=== PATIENT | male | born 1960 | race Caucasian/White ===

== ENCOUNTER → 2018-05-15 18:29 | Outpatient (CLI) | payer BC, SELFPAY | PROVIDERS: Family Provider Family Medicine; PCP Family Medicine; Referring Provider Podiatrist; Visit Provider Podiatrist | DX: L03.031 Cellulitis of right toe (principal) | CPT/HCPCS: 87070; 87077; 87186; 87205 ==

== ENCOUNTER → 2019-09-07 16:00 | Outpatient (CLI) | payer BC, SELFPAY ==
[2019-09-07 18:06] LABS: RBC /Synovial Fluid 0.214 10^6/uL (0); Synovial Fld Mononuclear WBC % 60.6 %; Synovial Fld Polynuclear WBC # 0.441 10^3/uL; Synovial Fld Polynuclear WBC % 39.4 %
[2019-09-07 19:18] LABS: AUTO B FLUID DILUENT BKGD CT WBC <0.1 RBC <0.01 (W<.1,R<.01); Appearance /Synovial Fluid Turbid (CLEAR); Color / Synovial Fluid Red (Pale Yellow); Lymph 29 %; Monocyte /Synovial Fluid 16 %; Other Cell /Synovial Fluid 31 %
[2019-09-07 19:19] LABS: Body Fluid QC Type(s) BF2Q; Neutrophil 24 % (0-25)
[2019-09-11 09:46] LABS: Pathologist Comment Reviewed
== END ==
PROVIDERS: PCP Family Medicine; Referring Provider Physician Assistant Surgical; Visit Provider Physician Assistant Surgical
DX: M70.22 Olecranon bursitis, left elbow (principal); Y93.9 Activity, unspecified
CPT/HCPCS: 87015; 87070; 87075; 87101; 87116; 87205; 87206; 89050; 89051

== ENCOUNTER 2020-04-08 10:20 | Inpatient (IN) | payer BC, SELFPAY ==
[2020-04-08] VITALS (22 sets, daily range): BP systolic 130–166; BP diastolic 47–78; PULSE 8–103; RESP 13–26; TEMP 36.7–37.2; O2SAT 70–93; BMI 29.6; BMI 29.5
--- NOTE | 2020-04-08 10:35 | RAD_ITS ---
STUDY: X-RAY CHEST REASON FOR EXAM: Male, 60 years old. SHORTNESS OF BREATH X 3 DAYS, COUGH, HEADACHE TECHNIQUE: Single AP portable view of the chest. COMPARISON: Comparison is made with prior study dated 11/02/2014. FINDINGS: EKG electrode are seen. Hyperinflation. There is no demonstrated pleural abnormality. Normal size heart. Normal mediastinum and joellen. Normal visualized pulmonary arteries. Normal visualized aortic arch and descending thoracic aorta. Normal visualized thoracic spine. Normal visualized ribs, clavicles, and shoulders. There is no demonstrated abnormality of the visualized soft tissue structures of the upper abdomen. RAD/Chest 1 View (Portable) IMPRESSION: Hyperinflation. Electronically Signed: Brendan Gunn, at 12:12 EDT , Service support ,
--- NOTE | 2020-04-08 10:35 | EKG12_ITS ---
Test Reason : SOB Blood Pressure : / mmHG Vent. Rate : 083 BPM Atrial Rate : 083 BPM P-R Int : 136 ms QRS Dur : 130 ms QT Int : 398 ms P-R-T Axes : 063 214 046 degrees QTc Int : 467 ms Sinus rhythm with Premature supraventricular complexes Right bundle branch block Abnormal ECG Confirmed by DELORES HUTCHISON, TRE ([id number]), assignment editor NASIM BLANKENSHIP ([id number]) on 04/15/2020 8:58:26 AM Referred By: JERRY Confirmed By:JAS ESTRELLA MD
--- NOTE | 2020-04-08 10:51 | ED.DCSUM_ITS ---
History of Present Illness Chief Complaint: Shortness of Breath Informant: Patient, Family Narrative: Patient presents the emergency department with shortness of breath and low oxygen levels. Patient states that about 3 to 4 days ago he developed nasal congestion that moved to his chest. He states his chest feels tight. He notes a chronic cough that does not seem worse but he does note some yellow sputum production. No fevers or myalgias. He does not feel chilled. No diarrhea or rashes. He has smoked a pack a day for 40 years. He has a diagnosis of sleep apnea and wears BiPAP with oxygen. He states he feels may be some I told him he had COPD at one point but he is not currently treated for that. Noted to have a pulse ox in the 70s yesterday was advised to come to emergency. - Past Medical History (1) BPH (benign prostatic hypertrophy) Status: Chronic (2) Depression Status: Chronic (3) Hyperlipemia Status: Chronic (4) Hypertension Status: Chronic Past Medical History - Allergies and Home Meds Allergies/Adverse Reactions: Allergies No Known Allergies Allergy (Verified 01/07/14 02:11) Primary Care Physician: Hector Vega MD [Primary Care Provider] - Prior records reviewed: Yes Surgical History: noncontributory, herniorrhaphy, - - History foot surgery Lives: Spouse/ Significant Other Smoking Status: Current every day smoker Alcohol: None Review of Systems General: Reports: Malaise. Denies: Chills, Fever, Sweats Eyes: Denies: Visual changes - bilaterally, Diplopia ENT: Reports: Rhinorrhea. Denies: Sore throat Cardiovascular: Denies: Chest pain, Palpitations Respiratory: Reports: Dyspnea, Cough, Dyspnea on exertion Gastrointestinal: Denies: Abdominal pain, Nausea, Vomiting, Diarrhea, Melena, Hematochezia Genitourinary: Denies: Dysuria, Hematuria, Frequency Musculoskeletal: Denies: Back pain, Extremity Pain Skin: Denies: Rash, Wounds Neurological: Denies: Headache, Weakness, Numbness Physical Exam Vital Signs/Narrative: Vital Signs Temp Pulse Resp BP Pulse Ox 04/08/20 10:42 86 13 144/60 H 92 04/08/20 10:40 93 04/08/20 10:26 98.9 F 86 17 144/60 H 70 Inital Vital Signs reviewed: Yes General: Well nourished, Well developed, No Acute Distress Head: Normocephalic, Atraumatic Eyes: Perrl, EOMI ENT: Moist mucous membranes, No rhinorrhea Neck: Supple, Nontender Cardiovascular: Regular rate, Regular rhythm, No murmurs Respiratory: Chest nontender, Rhonchi, Wheezing, Decreased Air Movement Abdomen: Soft, Nontender, Nondistended, Normal bowel sounds Back: Nontender, Normal Inspection Extremities: Nontender, No edema Skin: Normal color, No rash Neurological: Alert, Oriented x3, Cranial nerves II-XII grossly intact, Normal Strength, Normal Sensation Psychological: Normal affect, Normal Mood Diagnostic/Tx/Re-eval Laboratory Last Values WBC 13.2 K/mm3 (4.4-11.0) H 04/08/20 10:27 RBC 4.62 M/mm3 (4.6-6.2) 04/08/20 10:27 Hgb 14.5 g/dL (13.0-16.5) 04/08/20 10:27 Hct 46.3 % (40-54) 04/08/20 10:27 MCV 100.2 fL (80-94) H 04/08/20 10:27 MCH 31.4 pg (27.0-32.0) 04/08/20 10:27 MCHC 31.3 g/dL (32-36) L 04/08/20 10:27 RDW Std Deviation 51.7 fl (35.1-43.9) H 04/08/20 10:27 RDW Coeff of Renee 14.3 % (11.6-14.6) 04/08/20 10:27 Plt Count 178 K/mm3 (150-450) 04/08/20 10:27 MPV 10.7 fl (6.2-12.0) 04/08/20 10:27 Immature Gran % (Auto) 1.600 % (0.0-0.9) H 04/08/20 10:27 Neut % (Auto) 75.5 % (47-70) H 04/08/20 10:27 Lymph % (Auto) 12.1 % (19-41) L 04/08/20 10:27 [place] % (Auto) 9.9 % (0-10) 04/08/20 10:27 Eos % (Auto) 0.4 % (0-5) 04/08/20 10:27 Baso % (Auto) 0.5 % (0-1) 04/08/20 10:27 Absolute Neuts (auto) 10.0 X10^3/uL (2.0-7.7) H 04/08/20 10:27 Absolute Lymphs (auto) 1.60 X10^3/uL (0.83-4.51) 04/08/20 10:27 Nucleated RBC % 0 % (0-5) 04/08/20 10:27 PT 11.9 SECONDS (11.7-14.9) 04/08/20 10:27 INR 0.9 04/08/20 10:27 APTT 24.1 Seconds (24.1-36.2) 04/08/20 10:27 Sodium 138 mmol/L (136-145) 04/08/20 10:27 Potassium 3.7 mmol/L (3.5-5.1) 04/08/20 10:27 Chloride 103 mmol/L (98-107) 04/08/20 10:27 Carbon Dioxide 33.0 mmol/L (21.0-32.0) H 04/08/20 10:27 Anion Gap 2 (5-15) L 04/08/20 10:27 BUN 10 mg/dL (7-18) 04/08/20 10:27 Creatinine 0.66 mg/dL (0.70-1.30) L 04/08/20 10:27 Estim Creat Clear Calc 120.51 ml/min 04/08/20 10:27 Est GFR (MDRD) Af Amer 160 mL/min (>60) 04/08/20 10:27 Est GFR (MDRD) Non-Af 132 mL/min (>60) 04/08/20 10:27 BUN/Creatinine Ratio 15.3 RATIO (10-20) 04/08/20 10:27 Glucose 118 mg/dL (74-106) H 04/08/20 10:27 Lactic Acid 1.2 mmol/L (0.4-1.9) 04/08/20 10:27 Calcium 9.1 mg/dL (8.5-10.1) 04/08/20 10:27 Total Bilirubin 0.50 mg/dL (0.20-1.00) 04/08/20 10:27 AST 15 U/L (15-37) 04/08/20 10:27 ALT 17 U/L (16-61) 04/08/20 10:27 Alkaline Phosphatase 77 U/L (45-117) 04/08/20 10:27 Troponin I < 0.015 ng/mL (<0.045) 04/08/20 10:27 Total Protein 7.3 g/dL (6.4-8.2) 04/08/20 10:27 Albumin 3.6 g/dL (3.2-5.0) 04/08/20 10:27 Globulin 3.7 g/dL (2.2-4.2) 04/08/20 10:27 Albumin/Globulin Ratio 1.0 RATIO (0.9-2.4) 04/08/20 10:27 Urine Color Straw (Yellow) 04/08/20 11:40 Urine Clarity Clear (Clear) 04/08/20 11:40 Urine pH 7.0 (5.0 - 8.0) 04/08/20 11:40 Ur Specific [place] 1.010 (1.002-1.030) 04/08/20 11:40 Urine Protein Negative mg/dl (Negative) 04/08/20 11:40 Urine Glucose (UA) Normal mg/dl (Normal) 04/08/20 11:40 Urine Ketones 5 mg/dl (Negative) H 04/08/20 11:40 Urine Occult Blood Negative /ul (Negative) 04/08/20 11:40 Urine Nitrite Negative (Negative) 04/08/20 11:40 Urine Bilirubin Negative mg/dL (Negative) 04/08/20 11:40 Urine Urobilinogen 1 mg/dl (Normal) H 04/08/20 11:40 Ur Leukocyte Esterase Negative /ul (Negative) 04/08/20 11:40 Urine RBC 0 SEEN /hpf (0-5) 04/08/20 11:40 Urine WBC 0 SEEN /hpf (0-5) 04/08/20 11:40 Ur Squamous Epith Cells 0 SEEN /hpf (0-5) 04/08/20 11:40 Amorphous Sediment 3+ 04/08/20 11:40 Urine Bacteria 1+ /hpf (None Seen) 04/08/20 11:40 Urine Mucus 0 SEEN /hpf (<or=2+) 04/08/20 11:40 Clinical Impression(s) from Imaging Studies Chest X-Ray 04/08/20 10:35 IMPRESSION: Hyperinflation. Electronically Signed: Brendan Gunn, at 12:12 EDT , Service support , Chest CTA 04/08/20 11:39 IMPRESSION: No evidence of pulmonary embolism. 7.8 mm nodule in the peripheral lateral aspect of the left lower lobe. This was not present on prior study. Bilateral adrenal hyperplasia. Electronically Signed: Brendan Gunn, at 12:38 EDT , Service support , - Medical Decision Making She received breathing treatments and Solu-Medrol. Later in his ED course he received Rocephin and azithromycin. White count is 13,000. I do not see any infiltrate on chest x-ray or CTA. I do not see any pulmonary embolism. Patient continues to have significant wheezing and diminished breath sounds. He is requiring 5 L nasal cannula to keep his sats at 90%. Patient will require adm ission. ED Disposition - Plan for ED Patient: Disposition: Acute Care Hospital [facility] Diagnosis: Acute respiratory failure with hypoxia Referrals: Hector Vega MD [Primary Care Provider] -
[2020-04-08] MEDS: Ipratropium/Albuterol Sulfate 3 ML AMPUL.NEB INHALATION ×5 (11:00→23:01)
[2020-04-08] MEDS: Albuterol 2.5 MG/3 ML VIAL.NEB. INHALATION ×2 (11:00)
[2020-04-08] MEDS: 0.9% Normal Saline 1,000 ML 150 ML IV (11:05)
[2020-04-08] MEDS: MethylPREDNISolone 125 MG/2 ML Vial IV (11:05)
[2020-04-08 11:17] LABS: Basophil# 0.06 X10^3/uL; Basophil% 0.5 % (0-1); Eosinophil# 0.05 X10^3/uL; Eosinophils% 0.4 % (0-5); Hematocrit 46.3 % (40-54); Hemoglobin 14.5 g/dL (13.0-16.5); Lymphocyte % 12.1 % (19-41); Mean Corp Hgb Conc 31.3 g/dL (32-36); Mean Corpuscular Hgb 31.4 pg (27.0-32.0); Mean Corpuscular Volume 100.2 fL (80-94); Mean Platelet Vol. 10.7 fl (6.2-12.0); Monocyte# 1.31 X10^3/uL; Monocyte% 9.9 % (0-10); NRBC Flagged by Analyzer 0 % (0-5); Neutrophil # 9.96 X10^3/uL (2.7-7.7); Neutrophil % 75.5 % (47-70); Platelet Count 178 K/mm3 (150-450); RBC Distribution Width CV 14.3 % (11.6-14.6); RBC Distribution Width SD 51.7 fl (35.1-43.9); Red Blood Count 4.62 M/mm3 (4.6-6.2); White Blood Count 13.2 K/mm3 (4.4-11.0)
[2020-04-08 11:21] LABS: Lactic Acid 1.2 mmol/L (0.4-1.9)
[2020-04-08 11:24] LABS: AST(SGOT) 15 U/L (15-37); Alanine Aminotransfer ALT/SGPT 17 U/L (16-61); Albumin, Serum 3.6 g/dL (3.2-5.0); Alkaline Phosphatase 77 U/L (45-117); Anion Gap 2 (5-15); BUN 10 mg/dL (7-18); BUN/Creat Ratio 15.3 RATIO (10-20); Calcium,Total 9.1 mg/dL (8.5-10.1); Chloride 103 mmol/L (98-107); Creatinine, Serum 0.66 mg/dL (0.70-1.30); EST Glomerular Filtration Rate 132 mL/min (>60); Est Glom Filt Rate - Afr Amer 160 mL/min (>60); Estimated Creatinine Clearance 120.51 ml/min; Globulin 3.7 g/dL (2.2-4.2); Glucose 118 mg/dL (74-106); Potassium 3.7 mmol/L (3.5-5.1); Protein, Total 7.3 g/dL (6.4-8.2); Sodium Level 138 mmol/L (136-145)
[2020-04-08 11:29] LABS: International Normalized Ratio 0.9; Prothrombin Time (Protime)PT. 11.9 SECONDS (11.7-14.9)
[2020-04-08 11:30] LABS: Partial Thromboplast Time 24.1 Seconds (24.1-36.2)
--- NOTE | 2020-04-08 11:30 | ED.RN ---
PER FERNANDA WELLS FOR PT TO TAKE HOME MEDICATIONS OF PROZAC, AMLODIPINE, LOSARTAN, ASA.
--- NOTE | 2020-04-08 11:39 | CT_ITS ---
STUDY: CTA CHEST REASON FOR EXAM: Male, 60 years old. SOB X 3 DAYS, HX LYMPHOMA RADIATION DOSAGE (If Supplied By Facility): CTDIvol = ( 14.27 ) mGy, DLP = ( 540.00 ) mGycm TECHNIQUE: The examination was performed with the intravenous administration of IV 100mL Isovue-370. Post-processing of the angiographic images was performed, with multiplanar reformation and 3D reconstruction. Individualized dose optimization techniques were used for this CT. COMPARISON: Comparison is made with prior study dated 01/07/2014. FINDINGS: Normal enhancement of the main pulmonary artery and right and left pulmonary arteries. Normal enhancement of the bilateral peripheral pulmonary arteries. There is no demonstrated pulmonary embolism. There is atherosclerotic calcification of the aortic arch with tortuosity. There is no demonstrated aortic dissection. Normal heart and pericardium. There are visualized mediastinal lymph nodes, which are within normal size limits, and with normal morphology. Normal hilar regions. Normal visualized trachea and bronchi. The lungs are well expanded. Mild degree of emphysematous changes more prominent in the upper lobes. There is a 7.8 mm noncalcified nodule in the peripheral lateral aspect of the left lower lobe as seen on axial image #67. This was not present on prior examination. Normal pleura. Normal chest wall structures. There are degenerative changes of thoracic spine. There is evidence of bilateral adrenal hyperplasia. CT/CTA Chest W/WO Contrast IMPRESSION: No evidence of pulmonary embolism. 7.8 mm nodule in the peripheral lateral aspect of the left lower lobe. This was not present on prior study. Bilateral adrenal hyperplasia. Electronically Signed: Brendan Gunn, at 12:38 EDT , Service support ,
[2020-04-08 11:52] LABS: Mucous, Urine 0 SEEN /hpf (<or=2+); Red Blood Cells-Urine 0 SEEN /hpf (0-5); Squamous Epithelial Cells - UA 0 SEEN /hpf (0-5); White Blood Cells 0 SEEN /hpf (0-5)
[2020-04-08 11:55] LABS: Color, Urine Straw (Yellow); Glucose, Dipstick Normal (Normal); Ketone-Dipstick 5 mg/dl (Negative); Leukocyte Esterase-Dipstick Negative /ul (Negative); Nitrite-Dipstick Negative (Negative); Occult Blood-Urine Negative /ul (Negative); Protein-Dipstick Negative (Negative); Urine Bilirubin Dipstick Negative (Negative); Urine Clarity Clear (Clear); Urine Urobilinogen 1 mg/dl (Normal)
[2020-04-08 12:04] LABS: Amorphous Sediment 3+; Bacteria 1+ /hpf (None Seen)
[2020-04-08] MEDS: Ceftriaxone 1 GM/50 ML BAG IV (13:13)
--- NOTE | 2020-04-08 13:17 | HP.PCM_ITS ---
Problem List (1) Diabetes Status: Acute Qualifiers: Diabetes mellitus type: type 2 (2) COPD (chronic obstructive pulmonary disease) Status: Chronic History of Present Illness Date of Admission: 04/08/20 Mr. Martínez is a 60 year old M with the PMH as noted below who presented to the ED at [facility] on 04/08/2020 2/2 worsening SOB. He states that about a week ago he started with a URI and since it has moved down into his chest. His SOB has worsened significantly in the last 24 hrs and last evening they were unable to get his SpO2 above 70% yesterday and was advised to come to the ED at that time but waited until today. He presented here on RA and a SpO2 of 70% and has required 6 L n/c to keep his sats > 90%. He denies fever or chills. Denies myalgias, diarrhea, or body aches. He states that he is really not coughing anymore than usual but his cough has been productive of sputum which is not typical for him. His BP is slightly elevated in the ED and he is afebrile. His HR is WNL. Lab work revealed a mild leukocytosis at 13.2 with a L shift and all other lab wsa fairly unremarkable. His baseline HCO3 is elevated at 33 and i suspect based on this he is a chronic CO2 retainer. CTA r/o PE and showed mild e mphysematous changes predominantly in the BUL and a 7.8 non-calcified pulmonary nodule in the periphery of the LLL that is new. Cx were obtained and ABX were initiated in the ED. Past Medical History Past Medical History (Chronic Problems): Chronic Problems COPD (chronic obstructive pulmonary disease) (Chronic) Hypertension (Chronic) Depression (Chronic) Hyperlipemia (Chronic) BPH (benign prostatic hypertrophy) (Chronic) Allergies No Known Allergies Allergy (Verified 01/07/14 02:11) Home Medications: Ambulatory Orders Medication Instructions Recorded Aspirin E.C. [Ecotrin] 81 mg PO DAILY 01/07/14 Fluoxetine [Prozac] 40 mg PO DAILY 01/07/14 Propanolol 20 mg PO DAILY 01/07/14 Simvastatin [Zocor] 20 mg PO QHS 01/07/14 Tamsulosin HCl [Flomax] 0.4 mg PO DAILY 01/07/14 Albuterol IH (ProAir) [Proair Hfa] 1 - 2 puff INHALATION Q4H PRN PRN 01/09/14 #2 inhaler Azithromycin [Zithromax] 500 mg PO Q24 #5 tablet 01/09/14 Fluticasone/Salmeterol [Advair 1 puff INHALATION BID #3 inhaler 01/09/14 250/50 Mcg Diskus] Lisinopril [Zestril] 20 mg PO DAILY #30 tablet 01/09/14 Tiotropium [place] [Spiriva 18 MCG] 1 puff INHALATION DAILY #3 inhaler 01/09/14 predniSONE tablet 10 mg PO DAILY #50 tablet 01/09/14 Amlodipine [Norvasc] 10 mg PO DAILY 04/08/20 Ibrutinib [Imbruvica] 140 mg PO DAILY 04/08/20 Losartan Potassium 100 mg PO DAILY 04/08/20 Melatonin 20 mg PO QHS 04/08/20 Metformin HCl 500 mg PO BID 04/08/20 Surgical History: noncontributory, herniorrhaphy, - - History foot surgery Psychiatric History: Depression Lives: Spouse/ Significant Other Smoking Status: Current every day smoker Alcohol: None Review of Systems Constitutional: Reports: Fatigue. Denies: Anorexia, Chills, Fever, Night Sweats, Malaise, Weakness, Weight Change Eyes: Reports: Cataracts. Denies: Blurred vision, Conjunctivae Inflammation, Drainage, Eyelid Inflammation, Pain, Redness, Vision Change HEENT: Reports: Nasal Congestion, Post Nasal Drip, Sinus Congestion, Sinus Drainage. Denies: Difficulty Hearing, Difficulty Swallowing, Head Aches, Nasal bleeding, Sore Throat, Visual Changes Cardiovascular: Denies: Chest Pain, Claudication, Chest Pressure, Chest Tightness, Edema, Heaviness, Light Headedness, Orthopnea, Palpitations, Paroxysmal Noc. Dyspnea, Syncope Respiratory: Reports: Cough - chronic, Shortness of Breath, Shortness of breath at rest, Shortness of breath upon exertion, Sputum production, Wheezing. Denies: Hemoptysis, Pleuritic Pain Gastrointestinal: Reports: Constipation. Denies: Abdominal Pain, Diarrhea, Dyspepsia, Hematemesis, Hematochezia, Nausea, Melena, Vomiting Genitourinary: Reports: Hesitancy. Denies: Dysuria, Hematuria, Incontinence, Nocturia, Retention, Urgency Musculoskeletal: Denies: Back Pain, Joint Pain, Joint stiffness, Joint swelling, Joint Tenderness, Muscle pain, Neck Pain Skin: Denies: Dryness, Jaundice, Lesions, Pruritis, Rash, Skin Changes, Wounds Neurological: Denies: Balance problems, Blurred vision, Double vision, Change in Speech, Slurred speech, Confusion, Difficulty swallowing, Focal weakness, Headaches, Incoordination, Numbness, Tingling, Tremor, Seizures Psychiatric: Reports: Depression. Denies: Anxiety Endocrine: Denies: Change in Body Habitus, Heat/ Cold Intolerance, Polydipsia, Polyuria Hematologic/ Lymphatic: Denies: Adenopathy, Anemia, Easy Bruising, Easy Bleeding, Petechiae, Purpura VTE Information - Inpt Only VTE Present on Admission: No VTE Mechan Device Prophylaxis: SCD's VTE Pharm Prophylaxis ordered?: Yes Patient Problems: Active and Suspected Problems Diabetes (Acute) Acute respiratory failure with hypoxia (Acute) - Physical Exam Vitals/I&O's: Vital Signs Temp Pulse Resp BP Pulse Ox 98.6 F 91 19 H 130/66 H 91 04/08/20 13:16 04/08/20 13:15 04/08/20 13:15 04/08/20 13:15 04/08/20 13:15 Oxygen Flow Rate (L/min) 6 Oxygen Delivery Method Nasal Cannula Weight: 91 kg Body Mass Index (BMI) 29.6 General: Alert, Oriented x3, Cooperative, No apparent distress, Well developed, Well nourished, - - WM who appears older than stated age is sitting up in bed, at bedside HEENT: Atraumatic, PERRLA, EOMI, EAC Clear Oral: Moist Mucosa, No Gingival or Mucosal Lesions/ Ulcerations, - - Mallampati 3, no thrush Neck: Supple, No JVD, Negative Carotid Bruits, Negative Hepatojugular Reflux, No Nodes, No Nuchal Rigidity, Trachea Midline, Thyroid Normal Size and Texture Lungs: No rhonchi, No rales, Diminished, Wheezes - diffuse scattered end expiratory Cardiovascular: Regular rate, Regular Rhythm, Normal S1, Normal S2, No murmurs, No rub noted, No Gallop Abdomen: Bowel Sounds Present, Soft, Non Tender, Non-Distended, No Hepato- splenomegaly, Obese, No hernias noted Extremities: No clubbing, No cyanosis, No edema, Capillary Refill Less than 3 Seconds, Peripheral Pulses Normal Skin: No rashes, No breakdown Musculoskeletal: No Tenderness to Palpation of Joints or Extremities, No Muscle Wasting, Arthritic Changes Neurological: Cranial nerves II-XII grossly intact, Deep Tendon Reflexes 2+/4 and Symmetrical, Neuro grossly intact, Motor Exam 5/5 strength throughout, Muscle tone normal, Sensory exam intact to light touch and pain, Coordination normal Psych/Mental Status: Normal Affect, Appropriate, Alert and oriented to time, place, person, mood and affect Laboratory Results 04/08/20 10:27: Sodium 138, Potassium 3.7, Chloride 103, Carbon Dioxide 33.0 H, Anion Gap 2 L, BUN 10, Creatinine 0.66 L, Estim Creat Clear Calc 120.51, Est GFR (MDRD) Af Amer 160, Est GFR (MDRD) Non-Af 132, BUN/Creatinine Ratio 15.3, Glucose 118 H, Calcium 9.1, Total Bilirubin 0.50, AST 15, ALT 17, Alkaline Phosphatase 77, Troponin I < 0.015, Total Protein 7.3, Albumin 3.6, Globulin 3.7, Albumin/Globulin Ratio 1.0 04/08/20 10:27: WBC 13.2 H, RBC 4.62, Hgb 14.5, Hct 46.3, MCV 100.2 H, MCH 31.4, MCHC 31.3 L, RDW Std Deviation 51.7 H, RDW Coeff of Renee 14.3, Plt Count 178, MPV 10.7, Immature Gran % (Auto) 1.600 H, Neut % (Auto) 75.5 H, Lymph % (Auto) 12.1 L, [place] % (Auto) 9.9, Eos % (Auto) 0.4, Baso % (Auto) 0.5, Absolute Neuts (auto) 10.0 H, Absolute Lymphs (auto) 1.60, Nucleated RBC % 0 04/08/20 10:27: PT 11.9, INR 0.9, APTT 24.1 04/08/20 10:27: Lactic Acid 1.2 04/08/20 10:35: COVID-19 (JESSIE) Pending 04/08/20 11:40: Urine Color Straw, Urine Clarity Clear, Urine pH 7.0, Ur Specific [place] 1.010, Urine Protein Negative, Urine Glucose (UA) Normal, Urine Ketones 5 H, Urine Occult Blood Negative, Urine Nitrite Negative, Urine Bilirubin Negative, Urine Urobilinogen 1 H, Ur Leukocyte Esterase Negative, Urine RBC 0 SEEN, Urine WBC 0 SEEN, Ur Squamous Epith Cells 0 SEEN, Amorphous Sediment 3+, Urine Bacteria 1+, Urine Mucus 0 SEEN Current Medications Sodium Chloride () 1,000 mls @ 150 mls/hr IV .[id number] TAMMY Last Admin: 04/08/20 11:05 Dose: 150 mls/hr Documented by: Azithromycin 500 mg/ Dextrose 255 mls @ 250 mls/hr IV X1 ONE Stop: 04/08/20 13:51 Ceftriaxone Sodium (Rocephin) 1 gm in 50 mls @ 100 mls/hr IV X1 ONE Stop: 04/08/20 13:19 Last Admin: 04/08/20 13:13 Dose: 100 mls/hr Documented by: Assessment/Plan All Active Problems Diabetes (Acute) Acute respiratory failure with hypoxia (Acute) Shortness of breath (Acute) Acute Hypoxic Respiratory Failure 2/2 AECOPD -at baseline is on RA -now on 6 L nasal cannula with SpO2 90-93% -Check urine antigens -check Resp Viral panel -Covid-19 is pending -Sputum Cx ordered and Urine and Blood Cx already done -Start CTX and Azithro -Solumedrol 40 Q 8 -Pulm toilet -wean O2 as able -has seen Dr. Millan remotely but has never followed up and stopped taking inhalers when they ran out Pulmonary Nodule -new since last exam in 2013 -LLL -per Fleischner Guidelines (pt is high risk) pt should have a repeat CT in 3-6 mos as nodule is borderline in size -will need pulm f/u Leukocytosis -see above COPD with current tobacco abuse -pt not on any inhalers and had been in the past -never refilled when he ran out as he states that he did not notice a difference -has seen Yana in the past but never f/u again -still smoking 1 PPD and has done this for about 40 yrs -encouraged cessation -nicotine patch ordered -will need f/u as outpt DM-2 -take metformin at home -hold -SSI mod dose loki with steroids -BGT q AC RASHEL -is BIPAP dependent at night -pt unclear what home pressures are but 4.5 L bleed at hs -continue here and will bring in home unit in am HTN/HPL -continue Norvasc/Losartan -continue Zocor BPH -continue Flomax Depression -continue Prozac Overweight -would recommend wgt loss Insomnia -cont Melatonin DVT Prophylaxis -Lovenox Code Status -Full Inpatient E&M: 70701 Init Hosp L3
[2020-04-08] MEDS: Tamsulosin HCl 0.4 MG Capsule PO (15:45)
[2020-04-08 16:50] LABS: Bedside Glucose 168 mg/dL (70-110)
[2020-04-08] MEDS: Insulin Lispro 100 UNIT/ML INSULN.PEN SC ×2 (17:22→21:14)
[2020-04-08] MEDS: MELATONIN 3 MG TABLET PO (21:13)
[2020-04-08] MEDS: guaiFENesin 1,200 MG Tablet 1200 MG PO (21:14)
[2020-04-08] MEDS: 0.9% Saline Lock 10 ML Syringe IV (21:14)
[2020-04-08] MEDS: Atorvastatin Calcium 10 MG Tablet PO (21:14)
--- NOTE | 2020-04-08 22:06 | CPS ---
Patient's home BiPAP unit is setup at bedside. HOT STICK WORKER filled water chamber and checked to make sure machine was functioning properly. 6L O2 was bled into machine. Patient reported that he uses machine with 4.5-5.5L O2 at home. HOT STICK WORKER started patient on 6L O2 for BiPAP because of increased oxygen needs during this stay. Will monitor patient and titrate O2 throughout night.
[2020-04-08 22:51] LABS: Bedside Glucose 197 mg/dL (70-110)
[2020-04-09] VITALS (13 sets, daily range): BP systolic 153–165; BP diastolic 67–75; PULSE 68–89; RESP 18–22; TEMP 36.4–37.1; O2SAT 92–96
[2020-04-09] MEDS: 0.9% Saline Lock 10 ML Syringe IV ×3 (05:51→21:20)
[2020-04-09 06:04] LABS: Absolute Lymphocyte Count 0.62 X10^3/uL (0.83-4.51); Absolute Neutrophil Count 10.6 X10^3/uL (2.0-7.7); Basophil# 0.03 X10^3/uL; Basophil% 0.3 % (0-1); Hematocrit 41.1 % (40-54); Hemoglobin 12.7 g/dL (13.0-16.5); Lymphocyte # 0.62 X10^3/ul (4.0); Lymphocyte % 5.2 % (19-41); Mean Corp Hgb Conc 30.9 g/dL (32-36); Mean Corpuscular Hgb 31.4 pg (27.0-32.0); Mean Corpuscular Volume 101.5 fL (80-94); Mean Platelet Vol. 10.3 fl (6.2-12.0); Monocyte# 0.44 X10^3/uL; Monocyte% 3.7 % (0-10); NRBC Flagged by Analyzer 0 % (0-5); Neutrophil # 10.58 X10^3/uL (2.7-7.7); Neutrophil % 89.1 % (47-70); POSITIVE MORPHOLOGY YES; Platelet Count 158 K/mm3 (150-450); RBC Distribution Width CV 14.2 % (11.6-14.6); RBC Distribution Width SD 52.8 fl (35.1-43.9); Red Blood Count 4.05 M/mm3 (4.6-6.2); White Blood Count 11.9 K/mm3 (4.4-11.0)
[2020-04-09 06:12] LABS: Differential Indicated SCAN CRITERIA MET
[2020-04-09 06:34] LABS: Anion Gap 1 (5-15); BUN 11 mg/dL (7-18); BUN/Creat Ratio 20.1 RATIO (10-20); Calcium,Total 8.5 mg/dL (8.5-10.1); Chloride 103 mmol/L (98-107); Creatinine, Serum 0.55 mg/dL (0.70-1.30); EST Glomerular Filtration Rate 163 mL/min (>60); Est Glom Filt Rate - Afr Amer 197 mL/min (>60); Estimated Creatinine Clearance 144.61 ml/min; Glucose 158 mg/dL (74-106); Magnesium 2.6 mg/dL (1.6-2.6); Phosphorus 3.1 mg/dL (2.5-4.9); Potassium 4.1 mmol/L (3.5-5.1); Sodium Level 139 mmol/L (136-145)
[2020-04-09] MEDS: Insulin Lispro 100 UNIT/ML INSULN.PEN SC ×3 (06:34→21:20)
[2020-04-09 06:37] LABS: Differential Comment SCANNED
[2020-04-09 07:00] LABS: Bedside Glucose 172 mg/dL (70-110)
[2020-04-09] MEDS: Ipratropium/Albuterol Sulfate 3 ML AMPUL.NEB INHALATION ×5 (07:25→22:50)
[2020-04-09] MEDS: Losartan Potassium 100 MG Tablet PO (09:53)
[2020-04-09] MEDS: Aspirin E.C. 81 MG Tablet PO (09:53)
[2020-04-09] MEDS: amLODIPine 10 MG Tablet PO (09:54)
[2020-04-09] MEDS: Enoxaparin 40 MG/0.4 ML Syringe SC (09:54)
[2020-04-09] MEDS: guaiFENesin 1,200 MG Tablet 1200 MG PO ×2 (09:54→21:20)
[2020-04-09] MEDS: FLUoxetine 20 MG Capsule 40 MG PO (09:55)
--- NOTE | 2020-04-09 10:08 | PCM.PN.HOSP ---
Patient Problems: Active and Suspected Problems Diabetes (Acute) Acute respiratory failure with hypoxia (Acute) Subjective: Pt states that he is breathing better today but is still on 6 L of O2 with SpO2 of 94%. He would like to be off O2 prior to d/c and wants to go home tomorrow. I told him that the earliest he will likely go home is Tuesday and that I could not guarantee that he would be off O2 at d/c. He was frustrated that his rushed around this am to get here to see him but was unable to come up and see him because it was not 10 am as of yet. Vitals/I&O's: Vital Signs Temp Pulse Resp BP Pulse Ox 97.7 F L 88 21 H 153/73 H 94 04/09/20 03:00 04/09/20 07:25 04/09/20 07:25 04/09/20 03:00 04/09/20 07:25 Oxygen Flow Rate (L/min) 6 Oxygen Delivery Method Nasal Cannula Weight: 90.9 kg Body Mass Index (BMI) 29.5 Intake and Output for Last 24 Hours 04/07/20 04/08/20 04/09/20 23:59 23:59 23:59 Intake Total 1665 / 1665 100 / 100 Output Total 500 / 500 Balance 1165 / 1165 100 / 100 General: Alert, Oriented x3, Cooperative, No apparent distress, Well developed, Well nourished Oral: Moist Mucosa, No Gingival or Mucosal Lesions/ Ulcerations, - - no thrush, dentures in place Neck: Supple Lungs: No rhonchi, No rales, Diminished, Wheezes - less than yesterday bases> apices Cardiovascular: Regular rate, Regular Rhythm, Normal S1, Normal S2, No murmurs, No Ectopic Activity, No rub noted, No Gallop Abdomen: Bowel Sounds Present, Soft, Non Tender, Non-Distended, No Hepato-splenomegaly, Obese Extremities: No clubbing, No cyanosis, No edema, Capillary Refill Less than 3 Seconds, Peripheral Pulses Normal Skin: No rashes Neurological: Cranial nerves II-XII grossly intact, Neuro grossly intact Psych/Mental Status: Appropriate, Depressed - tearful when talking about his Microbiology Past 72 Hours 04/08/20 11:40 Urine, Clean Catch Streptococcus pneumoniae Antigen (M - Final 04/08/20 11:40 Urine, Clean Catch Legionella Antigen - Final 04/08/20 10:55 Mucosa - Nasopharyngeal Respiratory Panel (PCR) - Final Rhinovirus Laboratory Results 04/08/20 10:27: Sodium 138, Potassium 3.7, Chloride 103, Carbon Dioxide 33.0 H, Anion Gap 2 L, BUN 10, Creatinine 0.66 L, Estim Creat Clear Calc 120.51, Est GFR (MDRD) Af Amer 160, Est GFR (MDRD) Non-Af 132, BUN/Creatinine Ratio 15.3, Glucose 118 H, Calcium 9.1, Total Bilirubin 0.50, AST 15, ALT 17, Alkaline Phosphatase 77, Troponin I < 0.015, Total Protein 7.3, Albumin 3.6, Globulin 3.7, Albumin/Globulin Ratio 1.0 04/08/20 10:27: WBC 13.2 H, RBC 4.62, Hgb 14.5, Hct 46.3, MCV 100.2 H, MCH 31.4, MCHC 31.3 L, RDW Std Deviation 51.7 H, RDW Coeff of Renee 14.3, Plt Count 178, MPV 10.7, Immature Gran % (Auto) 1.600 H, Neut % (Auto) 75.5 H, Lymph % (Auto) 12.1 L, Gibson % (Auto) 9.9, Eos % (Auto) 0.4, Baso % (Auto) 0.5, Absolute Neuts (auto) 10.0 H, Absolute Lymphs (auto) 1.60, Nucleated RBC % 0 04/08/20 10:27: PT 11.9, INR 0.9, APTT 24.1 04/08/20 10:27: Lactic Acid 1.2 04/08/20 10:35: COVID-19 (JESSIE) Not Detected 04/08/20 11:40: Urine Color Straw, Urine Clarity Clear, Urine pH 7.0, Ur Specific Adair 1.010, Urine Protein Negative, Urine Glucose (UA) Normal, Urine Ketones 5 H, Urine Occult Blood Negative, Urine Nitrite Negative, Urine Bilirubin Negative, Urine Urobilinogen 1 H, Ur Leukocyte Esterase Negative, Urine RBC 0 SEEN, Urine WBC 0 SEEN, Ur Squamous Epith Cells 0 SEEN, Amorphous Sediment 3+, Urine Bacteria 1+, Urine Mucus 0 SEEN 04/08/20 16:46: POC Glucose 168 H 04/08/20 21:05: POC Glucose 197 H 04/09/20 05:46: Sodium 139, Potassium 4.1, Chloride 103, Carbon Dioxide 35.0 H, Anion Gap 1 L, BUN 11, Creatinine 0.55 L, Estim Creat Clear Calc 144.61, Est GFR (MDRD) Af Amer 197, Est GFR (MDRD) Non-Af 163, BUN/Creatinine Ratio 20.1 H, Glucose 158 H, Calcium 8.5, Phosphorus 3.1, Magnesium 2.6 04/09/20 05:46: WBC 11.9 H, RBC 4.05 L, Hgb 12.7 L, Hct 41.1, MCV 101.5 H, MCH 31.4, MCHC 30.9 L, RDW Std Deviation 52.8 H, RDW Coeff of Renee 14.2, Plt Count 158, MPV 10.3, Immature Gran % (Auto) 1.700 H, Neut % (Auto) 89.1 H, Lymph % (Auto) 5.2 L, Gibson % (Auto) 3.7, Eos % (Auto) 0.0, Baso % (Auto) 0.3, Absolute Neuts (auto) 10.6 H, Absolute Lymphs (auto) 0.62 L, Nucleated RBC % 0, Differential Comment SCANNED 04/09/20 06:32: POC Glucose 172 H Current Medications Acetaminophen (Tylenol) 650 mg PO Q6H PRN PRN PRN Reason: Pain Score 1-10/Temp > 100.7 F Al Hydroxide/Mg Hydroxide (Mylanta Ii) 30 ml PO Q6H PRN PRN PRN Reason: Gastric Burning Albuterol Sulfate (Ventolin Aerosols) 2.5 mg INHALATION Q2H PRN PRN PRN Reason: SOB/Wheezing Albuterol/Ipratropium (Duoneb) 3 ml INHALATION Q4H.RT [facility] Last Admin: 04/09/20 07:25 Dose: 3 ml Documented by: Amlodipine Besylate (Norvasc) 10 mg PO DAILY [facility] Last Admin: 04/09/20 09:54 Dose: 10 mg Documented by: [facility] ([facility]) [facility] Last Admin: 04/09/20 09:53 Dose: 81 mg Documented by: Atorvastatin Calcium (Lipitor) 10 mg PO QHS [facility] Last Admin: 04/08/20 21:14 Dose: 10 mg Documented by: Docusate Sodium (Colace) 100 mg PO BID PRN PRN PRN Reason: Constipation Enoxaparin Sodium (Lovenox) 40 mg SC DAILY [facility] Last Admin: 04/09/20 09:54 Dose: 40 mg Documented by: Fluoxetine HCl (Prozac) 40 mg PO DAILY [facility] Last Admin: 04/09/20 09:55 Dose: 40 mg Documented by: Guaifenesin (Mucinex) 1,200 mg PO BID [facility] Last Admin: 04/09/20 09:54 Dose: 1,200 mg Documented by: Ceftriaxone Sodium 2 gm/ (Sodium Chloride) 50 mls @ 100 mls/hr IV Q24 [facility] Stop: 04/16/20 10:01 Last Admin: 04/09/20 09:46 Dose: 100 mls/hr Documented by: Azithromycin 500 mg/ Dextrose 255 mls @ 250 mls/hr IV Q24 [facility] Stop: 04/14/20 10:01 Insulin Human Lispro (Humalog Kwikpen (Bkc)) 0 unit SC [facility]; Protocol Last Admin: 04/09/20 06:34 Dose: 1 units Documented by: Losartan Potassium (Cozaar) 100 mg PO DAILY [facility] Last Admin: 04/09/20 09:53 Dose: 100 mg Documented by: Melatonin (Melatonin) 3 mg PO QHS PRN PRN PRN Reason: INSOMNIA Last Admin: 04/08/20 21:13 Dose: 3 mg Documented by: Methylprednisolone (Solu-Medrol) 40 mg IV Q8 [facility] Last Admin: 04/09/20 05:51 Dose: 40 mg Documented by: Non-Formulary Medication (Ibrutinib) 140 mg PO DAILY [facility] Sodium Chloride () 10 - 40 ml IV UD PRN PRN Reason: SALINE FLUSH Last Admin: 04/09/20 05:51 Dose: 10 ml Documented by: Tamsulosin HCl (Flomax) 0.4 mg PO DAILY@1730 [facility] Last Admin: 04/08/20 15:45 Dose: 0.4 mg Documented by: Throat Lozenges (Cepacol Sore Throat Lozenge) 1 lozenge MUCOUS MEM Q2H PRN PRN PRN Reason: SORE THROAT STROKE Vital Signs/Narrative: Vital Signs Pulse Resp Pulse Ox 04/09/20 07:25 88 21 H 94 Medical Necessity - Tobacco Use Smoking Status: Current every day smoker Tobacco Use: Cigarettes Assessment/Plan All Active Problems Diabetes (Acute) Acute respiratory failure with hypoxia (Acute) Shortness of breath (Acute) Acute Hypoxic Respiratory Failure 2/2 AECOPD 2/2 Rhinovirus -at baseline is on RA -remains on 6 L nasal cannula with SpO2 90-93% -urine antigens negative -Resp Viral panel + for Rhinovirus -Covid-19 is negative -monitor cx -d/c CTX and Azithro with viral pathogen ident -continue Solumedrol 40 Q 8 for today and then plan to wean to pred tomorrow -Pulm toilet -wean O2 as able -has seen Dr. Millan remotely but has never followed up and stopped taking inhalers when they ran out Pulmonary Nodule (7.8 mm) -new since last exam in 2013 -LLL -per Fleischner Guidelines (pt is high risk) pt should have a repeat CT in 3 mos -review this with pt today and what the work up next would be--> pt voiced understanding -will need pulm f/u Leukocytosis -see above -trending down Non-Hodgkin's Lymphoma -continue immunotherapy -follows with Dr. Clark as an outpt -no reason to hold therapy at this time COPD with current tobacco abuse -pt not on any inhalers and had been in the past -never refilled when he ran out as he states that he did not notice a difference -has seen Yana in the past but never f/u again -still smoking 1 PPD and has done this for about 40 yrs -encouraged cessation -nicotine patch ordered -will need f/u as outpt DM-2 -take metformin at home -hold -continue SSI mod dose loki with steroids -BGT q AC RASHEL -is BIPAP dependent at night -pt unclear what home pressures are but 4.5 L bleed at hs -home unit tonight HTN/HPL -continue Norvasc/Losartan -continue Zocor -BP is elevated but with being ill and steroids will hold on titration of meds and monitor BPH -continue Flomax Depression -continue Prozac Overweight -would recommend wgt loss Insomnia -cont Melatonin DVT Prophylaxis -Lovenox Code Status -Full Inpatient E&M: 34331 Subs Hosp L2
[2020-04-09 11:56] LABS: Bedside Glucose 161 mg/dL (70-110)
--- NOTE | 2020-04-09 13:20 | CASEMGMT ---
CECILIA MADDEN assessment: Phone interview with patient due to droplet precautions for initial transition planning/care coordination assessment. CECILIA MADDEN introduced self and role at [facility], pt voices understanding and consents to assessment at this time. Pt is A/Ox4 at this time and answers all questions appropriately at this time. Pt is currently on 6liters nc at this time. Care providers, pharmacy, and demographics verified at this time. Presentation: SOB x3 days Admitting dx: Acute hypoxic resp failure PCP: Gary Specialists: Eduardo onc for 8 years treatment and states is on chemo pill at this time. Preferred Pharmacy: [facility] Insurance: [place] Prescription Benefit: [place] Living Will/HPOA: Pt states has LW/HPOA and is aware that they are not on file at [facility] at this time. Pt states his , Denice Martínez, is HPOA. LNOK: Denice Martínez, Living Arrangements: Pt states lives with in 2 story home and states no concerns at home at this time. Pt states is independent with ADL's. Transportation: Pt states drives self and states no transportation concerns at this time. DME/HHC: Pt states has a cane and cpap with O2 bleed in thru [facility]. Pt states has a concentrator for the bleed in and states does not use O2 continuous or with exertion at this time. CM to follow. Pt states no hx of HHC or SNF in the past. Pt states no concerns with going home at time of discharge. 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 Pt states 'quit' smoking when came to hospital yesterday and states does drink ETOH frequently. Pt states no further concerns/needs at this time. CM to follow for home oxygen need and any further discharge planning/needs. Advised pt to ask for CM if any further questions/concerns/needs arise, voices understanding. Pt Goal: Home Plan[place] CECILIA MADDEN
[2020-04-09 16:56] LABS: Bedside Glucose 148 mg/dL (70-110)
[2020-04-09] MEDS: Tamsulosin HCl 0.4 MG Capsule PO (17:33)
[2020-04-09] MEDS: Atorvastatin Calcium 10 MG Tablet PO (21:20)
[2020-04-09] MEDS: MELATONIN 10 MG TABLET 15 MG PO (23:06)
[2020-04-09 23:25] LABS: Bedside Glucose 251 mg/dL (70-110)
[2020-04-10] VITALS (18 sets, daily range): BP systolic 123–166; BP diastolic 51–74; PULSE 59–90; RESP 17–20; TEMP 36.4–36.7; O2SAT 91–97
[2020-04-10] MEDS: 0.9% Saline Lock 10 ML Syringe IV ×2 (05:24→21:12)
[2020-04-10 06:36] LABS: Bedside Glucose 145 mg/dL (70-110)
[2020-04-10] MEDS: Ipratropium/Albuterol Sulfate 3 ML AMPUL.NEB INHALATION ×5 (07:24→23:06)
[2020-04-10] MEDS: FLUoxetine 20 MG Capsule 40 MG PO (09:44)
[2020-04-10] MEDS: Enoxaparin 40 MG/0.4 ML Syringe SC (09:46)
[2020-04-10] MEDS: amLODIPine 10 MG Tablet PO (09:47)
[2020-04-10] MEDS: Aspirin E.C. 81 MG Tablet PO (09:48)
[2020-04-10] MEDS: Losartan Potassium 100 MG Tablet PO (09:48)
[2020-04-10] MEDS: guaiFENesin 1,200 MG Tablet 1200 MG PO ×2 (09:50→21:12)
[2020-04-10 11:21] LABS: Bedside Glucose 215 mg/dL (70-110)
[2020-04-10] MEDS: Insulin Lispro 100 UNIT/ML INSULN.PEN SC ×3 (12:22→21:17)
--- NOTE | 2020-04-10 12:58 | PCM.PN.HOSP ---
<Jovany Guevara - Last Filed: 04/10/20 12:58> Patient Problems: Active and Suspected Problems COPD exacerbation (Acute) Acute respiratory failure with hypoxia (Acute) Reason for Visit: Ongoing SOB and increased O2 demand. No CP. No LE edema. Pt was smoking up to this admission. Smokes [address] Millan about 5 years ago then never followed up. Pt requests pulmonary consult. Vitals/I&O's: Vital Signs Temp Pulse Resp BP Pulse Ox 97.9 F 90 17 166/71 H 97 04/10/20 11:54 04/10/20 12:28 04/10/20 11:54 04/10/20 08:43 04/10/20 11:54 Oxygen Flow Rate (L/min) 5.5 Oxygen Delivery Method Nasal Cannula Weight: 200 lb 6.403 oz Body Mass Index (BMI) 29.5 Intake and Output for Last 24 Hours 04/08/20 04/09/20 04/10/20 23:59 23:59 23:59 Intake Total 1665 / 1665 1450 / 1450 640 / 640 Output Total 500 / 500 1200 / 1200 1200 / 1200 Balance 1165 / 1165 250 / 250 -560 / -560 General: Alert, Oriented x3, Cooperative HEENT: Atraumatic, PERRLA, EOMI, Normocephalic Neck: Supple, No JVD, Negative Carotid Bruits Lungs: Diminished, Wheezes Cardiovascular: Regular rate, No murmurs Abdomen: Bowel Sounds Present, Soft, Non Tender Extremities: No edema, Capillary Refill Less than 3 Seconds Skin: No rashes, No breakdown Musculoskeletal: No Tenderness to Palpation of Joints or Extremities Neurological: Cranial nerves II-XII grossly intact Psych/Mental Status: Normal Affect, Appropriate, Alert and oriented to time, place, person, mood and affect Microbiology Past 72 Hours 04/08/20 16:15 Sputum, Expectorated/Coughed Gram Stain - Final 04/08/20 16:15 Sputum, Expectorated/Coughed Respiratory Culture - Preliminary Appears to be normal respiratory juli. Further studies to follow. 04/08/20 11:40 Urine, Clean Catch Urine Culture - Final Mixed Gram Positive Organisms 04/08/20 11:40 Blood Culture (Wb) - Left Hand Blood Culture - Preliminary No growth in 48 hours. 04/08/20 10:27 Blood Culture (Wb) - Anticubital Left Blood Culture - Preliminary No growth in 48 hours. 04/08/20 11:40 Urine, Clean Catch Streptococcus pneumoniae Antigen (M - Final 04/08/20 11:40 Urine, Clean Catch Legionella Antigen - Final 04/08/20 10:55 Mucosa - Nasopharyngeal Respiratory Panel (PCR) - Final Rhinovirus Laboratory Results 04/09/20 16:47: POC Glucose 148 H 04/09/20 21:18: POC Glucose 251 H 04/10/20 06:30: POC Glucose 145 H 04/10/20 11:11: POC Glucose 215 H Current Medications Acetaminophen (Tylenol) 650 mg PO Q6H PRN PRN PRN Reason: Pain Score 1-10/Temp > 100.7 F Al Hydroxide/Mg Hydroxide (Mylanta Ii) 30 ml PO Q6H PRN PRN PRN Reason: Gastric Burning Albuterol Sulfate (Ventolin Aerosols) 2.5 mg INHALATION Q2H PRN PRN PRN Reason: SOB/Wheezing Albuterol/Ipratropium (Duoneb) 3 ml INHALATION Q4H.RT [facility] Last Admin: 04/10/20 11:10 Dose: 3 ml Documented by: Amlodipine Besylate (Norvasc) 10 mg PO DAILY [facility] Last Admin: 04/10/20 09:47 Dose: 10 mg Documented by: [facility]) [facility] Last Admin: 04/10/20 09:48 Dose: 81 mg Documented by: Atorvastatin Calcium (Lipitor) 10 mg PO QHS [facility] Last Admin: 04/09/20 21:20 Dose: 10 mg Documented by: Docusate Sodium (Colace) 100 mg PO BID PRN PRN PRN Reason: Constipation Enoxaparin Sodium (Lovenox) 40 mg SC DAILY [facility] Last Admin: 04/10/20 09:46 Dose: 40 mg Documented by: Fluoxetine HCl (Prozac) 40 mg PO DAILY [facility] Last Admin: 04/10/20 09:44 Dose: 40 mg Documented by: Guaifenesin (Mucinex) 1,200 mg PO BID [facility] Last Admin: 04/10/20 09:50 Dose: 1,200 mg Documented by: Insulin Human Lispro (Humalog Kwikpen (Bkc)) 0 unit SC [facility]; Protocol Last Admin: 04/10/20 12:22 Dose: 2 units Documented by: Losartan Potassium (Cozaar) 100 mg PO DAILY [facility] Last Admin: 04/10/20 09:48 Dose: 100 mg Documented by: Melatonin (Melatonin) 15 mg PO QHS PRN PRN PRN Reason: INSOMNIA Last Admin: 04/09/20 23:06 Dose: 15 mg Documented by: Methylprednisolone (Solu-Medrol) 40 mg IV Q8 [facility] Last Admin: 04/10/20 05:24 Dose: 40 mg Documented by: Nicotine (Nicoderm Cq (Pbkc)) 21 mg TRANSDERM. DAILY [facility] Last Admin: 04/10/20 09:45 Dose: 21 mg Documented by: Sodium Chloride () 10 - 40 ml IV UD PRN PRN Reason: SALINE FLUSH Last Admin: 04/10/20 05:24 Dose: 10 ml Documented by: Throat Lozenges (Cepacol Sore Throat Lozenge) 1 lozenge MUCOUS MEM Q2H PRN PRN PRN Reason: SORE THROAT STROKE Vital Signs/Narrative: Vital Signs Temp Pulse Resp Pulse Ox 04/10/20 12:28 90 04/10/20 11:54 97.9 F 81 17 97 Medical Necessity - Tobacco Use Smoking Status: Current every day smoker Tobacco Use: Cigarettes Assessment/Plan All Active Problems COPD exacerbation (Acute) Acute respiratory failure with hypoxia (Acute) 1. Acute hypoxic respiratory failure 2/2 Acute COPD exacerbation 2/2 Rhinovirus - solumedrol/duonebs. pulm consult. Incentive spirometer. 2. RASHEL - bipap qhs with 4.5 lpm o2 bleed in. 3. Nicotine abuse - 1 ppd, 40 year smoker. nicotine patch applied. 4. NHL - ibrutinib. 5. Pulmonary nodule - repeat imaging needed. pulm consulted. 6. DMt2 - SSI. metformin held. 7. DVT ppx: lovenox DC planning: wean o2 as tolerated. may need new home o2 Rx. This patient was seen by Jovany Guevara PA-C under the supervision of Dr. Fenton. <Brown Fenton E - Last Filed: 04/10/20 13:20> Vitals/I&O's: Vital Signs Temp Pulse Resp BP Pulse Ox 97.9 F 90 17 166/71 H 97 04/10/20 11:54 04/10/20 12:28 04/10/20 11:54 04/10/20 08:43 04/10/20 11:54 Oxygen Flow Rate (L/min) 5.5 Oxygen Delivery Method Nasal Cannula Weight: 200 lb 6.403 oz Body Mass Index (BMI) 29.5 Intake and Output for Last 24 Hours 04/08/20 04/09/20 04/10/20 23:59 23:59 23:59 Intake Total 1665 / 1665 1450 / 1450 640 / 640 Output Total 500 / 500 1200 / 1200 1200 / 1200 Balance 1165 / 1165 250 / 250 -560 / -560 Microbiology Past 72 Hours 04/08/20 16:15 Sputum, Expectorated/Coughed Gram Stain - Final 04/08/20 16:15 Sputum, Expectorated/Coughed Respiratory Culture - Preliminary Appears to be normal respiratory juli. Further studies to follow. 04/08/20 11:40 Urine, Clean Catch Urine Culture - Final Mixed Gram Positive Organisms 04/08/20 11:40 Blood Culture (Wb) - Left Hand Blood Culture - Preliminary No growth in 48 hours. 04/08/20 10:27 Blood Culture (Wb) - Anticubital Left Blood Culture - Preliminary No growth in 48 hours. 04/08/20 11:40 Urine, Clean Catch Streptococcus pneumoniae Antigen (M - Final 04/08/20 11:40 Urine, Clean Catch Legionella Antigen - Final 04/08/20 10:55 Mucosa - Nasopharyngeal Respiratory Panel (PCR) - Final Rhinovirus Laboratory Results 04/09/20 16:47: POC Glucose 148 H 04/09/20 21:18: POC Glucose 251 H 04/10/20 06:30: POC Glucose 145 H 04/10/20 11:11: POC Glucose 215 H Current Medications Acetaminophen (Tylenol) 650 mg PO Q6H PRN PRN PRN Reason: Pain Score 1-10/Temp > 100.7 F Al Hydroxide/Mg Hydroxide (Mylanta Ii) 30 ml PO Q6H PRN PRN PRN Reason: Gastric Burning Albuterol Sulfate (Ventolin Aerosols) 2.5 mg INHALATION Q2H PRN PRN PRN Reason: SOB/Wheezing Albuterol/Ipratropium (Duoneb) 3 ml INHALATION Q4H.RT [facility] Last Admin: 04/10/20 11:10 Dose: 3 ml Documented by: Amlodipine Besylate (Norvasc) 10 mg PO DAILY [facility] Last Admin: 04/10/20 09:47 Dose: 10 mg Documented by: Aspirin (Ecotrin) 81 mg PO DAILYCM [facility] Last Admin: 04/10/20 09:48 Dose: 81 mg Documented by: Atorvastatin Calcium (Lipitor) 10 mg PO QHS [facility] Last Admin: 04/09/20 21:20 Dose: 10 mg Documented by: Docusate Sodium (Colace) 100 mg PO BID PRN PRN PRN Reason: Constipation Enoxaparin Sodium (Lovenox) 40 mg SC DAILY [facility] Last Admin: 04/10/20 09:46 Dose: 40 mg Documented by: Fluoxetine HCl (Prozac) 40 mg PO DAILY [facility] Last Admin: 04/10/20 09:44 Dose: 40 mg Documented by: Guaifenesin (Mucinex) 1,200 mg PO BID [facility] Last Admin: 04/10/20 09:50 Dose: 1,200 mg Documented by: Insulin Human Lispro (Humalog Kwikpen (Bkc)) 0 unit SC [facility]; Protocol Last Admin: 04/10/20 12:22 Dose: 2 units Documented by: Losartan Potassium (Cozaar) 100 mg PO DAILY [facility] Last Admin: 04/10/20 09:48 Dose: 100 mg Documented by: Melatonin (Melatonin) 15 mg PO QHS PRN PRN PRN Reason: INSOMNIA Last Admin: 04/09/20 23:06 Dose: 15 mg Documented by: Methylprednisolone (Solu-Medrol) 40 mg IV Q8 [facility] Last Admin: 04/10/20 05:24 Dose: 40 mg Documented by: Nicotine (Nicoderm Cq (Pbkc)) 21 mg TRANSDERM. DAILY [facility] Last Admin: 04/10/20 09:45 Dose: 21 mg Documented by: Sodium Chloride () 10 - 40 ml IV UD PRN PRN Reason: SALINE FLUSH Last Admin: 04/10/20 05:24 Dose: 10 ml Documented by: Throat Lozenges (Cepacol Sore Throat Lozenge) 1 lozenge MUCOUS MEM Q2H PRN PRN PRN Reason: SORE THROAT STROKE Vital Signs/Narrative: Vital Signs Temp Pulse Resp Pulse Ox 04/10/20 12:28 90 04/10/20 11:54 97.9 F 81 17 97 Assessment/Plan Hospitalist note: I am seeing this patient in conjunction with Jovany Guevara. I independently seen and examined the patient. Progress note above, laboratory data and imaging studies reviewed and I concur with above treatment plan. Today, patient still complaining of shortness of breath but it has been improving. He still having occasional cough, no sputum production. He remained on high flow oxygen up to 5.5 L. He has been afebrile, other vital signs are stable. - Physical Exam General: Alert, Oriented x3, Cooperative, minimally short of breath. HEENT: Atraumatic, PERRLA, EOMI. Neck: Supple, No JVD, Negative Carotid Bruits, Trachea Midline, Thyroid Normal. Lungs: Decreased breath sounds bilateral, occasional wheezes, rhonchi, no rales. Cardiovascular: Regular rate, Regular Rhythm, Normal S1, Normal S2, PMI Normal. Abdomen: Bowel Sounds Present, Soft, Non Tender, Non-Distended, No Hepato-splenomegaly. Extremities: No clubbing, No cyanosis, No edema Skin: No rashes, No breakdown Neurological: Cranial nerves are intact, neuro grossly intact Assessment and plan: #1 acute hypoxic respiratory failure: Secondary to acute COPD exacerbation which was triggered by rhinovirus. Patient is on IV steroids and bronchodilators. CTA chest showed no PE or dissection, revealed left lower lobe peripheral lung nodule measuring about 7.8 mm. Patient is requiring high flow oxygen of 5.5 L. He mentioned that he has been on home oxygen at 4 L at night only. Pulmonology consulted. Plan to continue same treatment, wean off oxygen as tolerated. #2 acute COPD exacerbation: Triggered by rhinovirus. As mentioned above, patient is on IV steroids and bronchodilators. Pneumococcal and Legionella antigen were negative. Blood culture showed no growth in 48 hours. COVID-19 PCR was negative. Sputum culture revealed normal aspiratory juli, final is pending. Plan as above. #3 Other chronic medical problems: Stable, continue current medications as above. This note was generated with [employer] software. It may contain incorrect words, spelling, and punctuation that were not noted in checking the note before signing. Inpatient E&M: 38420 Subs Hosp L2
--- NOTE | 2020-04-10 14:04 | ECHOD_ITS ---
Reason For Study: PULMONARY HYPERTENSION Procedure This was a 2D Doppler, Color Flow transthoracic echocardiogram. Exam performed portable in patient room. Left Ventricle The estimated ejection fraction is 65 %. No evidence for diastolic dysfunction. No regional wall motion abnormalities noted. Right Ventricle Normal RV size. Normal systolic function. Atria Normal left atrium. Normal right atrium. No doppler evidence for ASD. Mitral Valve There is no mitral valve stenosis. No mitral valve insufficiency. Tricuspid Valve There is no tricuspid stenosis. No tricuspid valve insufficiency. Unable to estimate RV systolic pressure due to inadequate jet, pulmonary artery pressure probably normal. Aortic Valve Trisinus/trileaflet aortic valve. There is no aortic stenosis. No aortic valve insufficiency. Pulmonic Valve There is no pulmonic valvular stenosis. No pulmonic valve insufficiency. Great Vessels Normal aortic root. The inferior vena cava is dilated. Pericardium/Pleural No pericardial effusion. MMode/2D Measurements & Calculations LVIDd: 5.1 cm IVSd: 1.2 cm LAV(MOD-bp): 61.2 ml LVIDs: 3.1 cm LVPWd: 1.1 cm LAV(MOD-bp) Indexed: 29.6 ml/m2 RVDd: 4.0 cm FS: 38.5 % LAV(MOD-sp2): 62.0 ml LAV(MOD-sp4): 59.7 ml SV(MOD-sp4): 83.1 ml SV(sp4-el): 88.6 ml LVAd ap4: 34.8 cm2 EDV(MOD-sp4): 119.9 ml EDV(sp4-el): 123.3 ml LVAs ap4: 17.0 cm2 ESV(MOD-sp4): 36.8 ml ESV(sp4-el): 34.6 ml EF(MOD-sp4): 69.3 % EF(sp4-el): 71.9 % LA A4 area: 20.4 cm2 RA A4 area: 13.6 cm2 Time Measurements MV dec time: 0.23 sec Doppler Measurements & Calculations MV E max anant: 121.0 cm/sec Lat Peak E' Anant: 14.5 cm/sec Med Peak E' Anant: 11.4 cm/sec MV A max anant: 97.5 cm/sec E/E' lat: 8.3 E/E' med: 10.6 MV E/A: 1.2 Ao V2 max: 193.1 cm/sec LV V1 max: 146.9 cm/sec PA V2 max: 110.6 cm/sec Ao max P.9 mmHg LV V1 max P.6 mmHg Interpretation Summary The estimated ejection fraction is 65 %. No evidence for diastolic dysfunction. The inferior vena cava is dilated Ordering Physician: Yanick Jamison Referring Physician: JIN DURAND Performed By: Debbie Torres RDCS
--- NOTE | 2020-04-10 14:05 | CON.PCM_ITS ---
Problem List (1) COPD exacerbation Status: Acute (2) Type 2 diabetes mellitus Status: Chronic Qualifiers: Diabetes mellitus penitentiary insulin use: without assistant terminal manager use Diabetes mellitus complication status: with circulatory complication Diabetes mellitus complication detail: with other circulatory complications Qualified Code(s): E11.59 - Type 2 diabetes mellitus with other circulatory complications (3) BPH (benign prostatic hypertrophy) Status: Chronic (4) Depression Status: Chronic Qualifiers: Depression Type: major depressive disorder Major depression recurrence: recurrent Active/Remission status: in partial remission Qualified Code(s): F33.41 - Major depressive disorder, recurrent, in partial remission (5) Hyperlipemia Status: Chronic Qualifiers: Hyperlipidemia type: mixed hyperlipidemia Qualified Code(s): E78.2 - Mixed hyperlipidemia (6) Hypertension Status: Chronic Qualifiers: Hypertension type: essential hypertension Qualified Code(s): I10 - Essential (primary) hypertension Reason for Consult Date of Consultation: 04/10/20 Reason for Consultation: Hypoxia History of Present Illness: The patient is a 60 year old M, with past medical history listed below, who presented to [facility] on 04/08/2020 secondary to progressive shortness of breath and hypoxemia. Patient states that he developed sinus congestion 3 to 4 days prior to presentation and felt that his chest was tight. Patient does have a chronic cough and reported change from a white to cream- colored sputum. Patient did not report any fevers or myalgias. Patient did not have any diarrhea, rashes or palpitations. Patient does use a BiPAP at baseline with supplemental oxygen, but does not use oxygen during the day. Patient does have an extensive smoking history and has seen Dr. Millan in the past. Patient states his pulse ox was in the 70s yesterday and he was advised to come to the emergency department for evaluation. In the ER, patient was noted to be hypoxic requiring nasal cannula oxygen at 5 L to obtain a sat of 90%. Patient was given breathing treatments, Solu-Medrol, Rocephin and azithromycin. Laboratory work-up showed a leukocytosis around 13,000. A chest x-ray and CTA did not show any pulmonary embolism or acute infiltrates. Patient was admitted to the floor for further evaluation after COVID test was negative. Patient was noted to have a bicarbonate of 33. Over the course of the hospitalization, patient has failed to really improved. Patient is now requiring 5-1/2 to 6 L to maintain saturations. Patient has come back positive for rhinovirus. Patient is compliant with his BiPAP therapy in the hospital and states he wore it at home. Patient is unclear how much supplemental oxygen he had bleeding into the system. Patient does report that he has noted increased lower extremity edema for a week or 2 prior to presentation. Patient states this has improved since he is been in the hospital. Review of systems otherwise negative from a constitutional, HEENT, respiratory, cardiovascular, GI, genitourinary, musculoskeletal, skin, neurologic, psychiatric and hematologic system unless stated above. Past Medical History Past Medical History (Chronic Problems): Chronic Problems Type 2 diabetes mellitus (Chronic) COPD (chronic obstructive pulmonary disease) (Chronic) Hypertension (Chronic) Depression (Chronic) Hyperlipemia (Chronic) BPH (benign prostatic hypertrophy) (Chronic) Allergies lisinopril Allergy (Verified 04/08/20 14:35) cough Home Medications: Ambulatory Orders Medication Instructions Recorded Aspirin E.C. [Ecotrin] 81 mg PO DAILY 01/07/14 Fluoxetine [Prozac] 40 mg PO DAILY 01/07/14 Amlodipine [Norvasc] 10 mg PO DAILY 04/08/20 Atorvastatin Calcium [Lipitor] 20 mg PO QHS 04/08/20 Calcium Carbonate [Elemental 1,200 mg PO DAILY 04/08/20 Calcium] Cholecalciferol (Vitamin D3) 2,000 unit PO DAILY 04/08/20 [Vitamin D3] Ibrutinib [Imbruvica] 420 mg PO DAILY 04/08/20 Losartan Potassium 100 mg PO DAILY 04/08/20 Melatonin 20 mg PO QHS 04/08/20 Metformin HCl 500 mg PO BID 04/08/20 Surgical History: noncontributory, herniorrhaphy, - - History foot surgery Psychiatric History: Depression Lives: Spouse/ Significant Other Smoking Status: Current every day smoker Tobacco Use: Cigarettes Alcohol: None Review of Systems Comment: See HPI Patient Problems: Active and Suspected Problems COPD exacerbation (Acute) Acute respiratory failure with hypoxia (Acute) Objective: All imaging was personally reviewed. CT scan of the chest shows no acute infiltrates or mediastinal lymphadenopathy. However, there is bronchiectasis noted along with severely enlarged pulmonary artery and emphysematous changes. No pulmonary function test is available for review. Last echocardiogram completed in 2014 showed an EF of 65% with a right ventricular systolic pressure of 37 mmHg and no significant valvular disorders. - Physical Exam Vitals/I&O's: Vital Signs Temp Pulse Resp BP Pulse Ox 36.6 C 80 17 164/68 H 95 04/10/20 13:00 04/10/20 13:00 04/10/20 13:00 04/10/20 13:00 04/10/20 13:00 Oxygen Flow Rate (L/min) 5.5 Oxygen Delivery Method Nasal Cannula Weight: 90.9 kg Body Mass Index (BMI) 29.5 Intake and Output for Last 24 Hours 04/08/20 04/09/20 04/10/20 23:59 23:59 23:59 Intake Total 1665 / 1665 1450 / 1450 640 / 640 Output Total 500 / 500 1200 / 1200 1200 / 1200 Balance 1165 / 1165 250 / 250 -560 / -560 General: Alert, Oriented x3, Cooperative, No apparent distress, Well developed, Well nourished, - - Appears older than stated age. Mild conversational dyspnea. HEENT: Atraumatic, PERRLA, EOMI, Normocephalic Oral: Moist Mucosa, No Gingival or Mucosal Lesions/ Ulcerations Neck: Supple, No JVD, No Nodes, Thyroid Normal Size and Texture Lungs: No rhonchi, No rales, Diminished, Wheezes Cardiovascular: Normal S1, Normal S2, No murmurs, No rub noted, No Gallop, Tachycardic Abdomen: Bowel Sounds Present, Soft, Non Tender, Non-Distended, Obese Extremities: No clubbing, No cyanosis, No edema, Capillary Refill Less than 3 Se conds Skin: No rashes, No breakdown Musculoskeletal: No Tenderness to Palpation of Joints or Extremities Lymphatic: No Cervical, Supraclavicular, or Inguinal Adenopathy Neurological: Cranial nerves II-XII grossly intact, Neuro grossly intact, Motor Exam 5/5 strength throughout Psych/Mental Status: Alert and oriented to time, place, person, mood and affect Microbiology Past 72 Hours 04/08/20 16:15 Sputum, Expectorated/Coughed Gram Stain - Final 04/08/20 16:15 Sputum, Expectorated/Coughed Respiratory Culture - Preliminary Appears to be normal respiratory juli. Further studies to follow. 04/08/20 11:40 Urine, Clean Catch Urine Culture - Final Mixed Gram Positive Organisms 04/08/20 11:40 Blood Culture (Wb) - Left Hand Blood Culture - Preliminary No growth in 48 hours. 04/08/20 10:27 Blood Culture (Wb) - Anticubital Left Blood Culture - Preliminary No growth in 48 hours. 04/08/20 11:40 Urine, Clean Catch Streptococcus pneumoniae Antigen (M - Final 04/08/20 11:40 Urine, Clean Catch Legionella Antigen - Final 04/08/20 10:55 Mucosa - Nasopharyngeal Respiratory Panel (PCR) - Final Rhinovirus Laboratory Results 04/09/20 16:47: POC Glucose 148 H 04/09/20 21:18: POC Glucose 251 H 04/10/20 06:30: POC Glucose 145 H 04/10/20 11:11: POC Glucose 215 H Current Medications Acetaminophen (Tylenol) 650 mg PO Q6H PRN PRN PRN Reason: Pain Score 1-10/Temp > 100.7 F Al Hydroxide/Mg Hydroxide (Mylanta Ii) 30 ml PO Q6H PRN PRN PRN Reason: Gastric Burning Albuterol Sulfate (Ventolin Aerosols) 2.5 mg INHALATION Q2H PRN PRN PRN Reason: SOB/Wheezing Albuterol/Ipratropium (Duoneb) 3 ml INHALATION Q4H.RT [facility] Last Admin: 04/10/20 11:10 Dose: 3 ml Documented by: Amlodipine Besylate (Norvasc) 10 mg PO DAILY [facility] Last Admin: 04/10/20 09:47 Dose: 10 mg Documented by: [facility] Admin: 04/10/20 09:48 Dose: 81 mg Documented by: Atorvastatin Calcium (Lipitor) 10 mg PO QHS [facility] Last Admin: 04/09/20 21:20 Dose: 10 mg Documented by: Docusate Sodium (Colace) 100 mg PO BID PRN PRN PRN Reason: Constipation Enoxaparin Sodium (Lovenox) 40 mg SC DAILY [facility] Last Admin: 04/10/20 09:46 Dose: 40 mg Documented by: Fluoxetine HCl (Prozac) 40 mg PO DAILY [facility] Last Admin: 04/10/20 09:44 Dose: 40 mg Documented by: Guaifenesin (Mucinex) 1,200 mg PO BID [facility] Last Admin: 04/10/20 09:50 Dose: 1,200 mg Documented by: Insulin Human Lispro (Humalog Kwikpen (Bkc)) 0 unit SC ACHS [facility]MY; Protocol Last Admin: 04/10/20 12:22 Dose: 2 units Documented by: Losartan Potassium (Cozaar) 100 mg PO DAILY [facility] Last Admin: 04/10/20 09:48 Dose: 100 mg Documented by: Melatonin (Melatonin) 15 mg PO QHS PRN PRN PRN Reason: INSOMNIA Last Admin: 04/09/20 23:06 Dose: 15 mg Documented by: Methylprednisolone (Solu-Medrol) 40 mg IV Q8 [facility] Last Admin: 04/10/20 13:38 Dose: 40 mg Documented by: Nicotine (Nicoderm Cq (Pbkc)) 21 mg TRANSDERM. DAILY [facility] Last Admin: 04/10/20 09:45 Dose: 21 mg Documented by: Sodium Chloride () 10 - 40 ml IV UD PRN PRN Reason: SALINE FLUSH Last Admin: 04/10/20 05:24 Dose: 10 ml Documented by: Throat Lozenges (Cepacol Sore Throat Lozenge) 1 lozenge MUCOUS MEM Q2H PRN PRN PRN Reason: SORE THROAT Clinical Impression(s) from Imaging Studies Chest X-Ray 04/08/20 10:35 IMPRESSION: Hyperinflation. Electronically Signed: Brendan Gunn, at 12:12 EDT , Service support , Chest CTA 04/08/20 11:39 IMPRESSION: No evidence of pulmonary embolism. 7.8 mm nodule in the peripheral lateral aspect of the left lower lobe. This was not present on prior study. Bilateral adrenal hyperplasia. Electronically Signed: Brendan Gunn at 12:38 EDT , Service support , Assessment/Plan All Active Problems COPD exacerbation (Acute) Acute respiratory failure with hypoxia (Acute) RECOMMENDATIONS: 1. Obtain echocardiogram 2. Continue bronchodilators, mucolytic, steroids and supplemental oxygen 3. Possible diuresis pending echo results 4. Outpatient complete PFT 5. Continue BiPAP with sleep and titrate supplemental oxygen as necessary IMPRESSIONS: 1. Acute hypoxic respiratory insufficiency secondary to probable acute COPD exacerbation secondary to rhinovirus/bronchiectasis Clinical suspicion for multiple etiologies. Patient does appear to have COPD and bronchiectasis on CT scan. Both of these would be exacerbated by rhinovirus. Patient is appropriately on steroids, bronchodilators and supplemental oxygen. However, patient's pulmonary artery is larger than his aorta on the CT scan indicating probable increased pulmonary artery pressures. Clinical suspicion for significant chronic hypoxia with acute exacerbation, but this cannot be verified at this time. If patient is found to have significantly elevated pulmonary artery pressures, a trial of diuresis may be appropriate. High clinical suspicion the patient will require supplemental oxygen on discharg e, but current demands will have to improve to be able to provide the necessary oxygen at home. 2. New pulmonary nodule Differential diagnosis would include malignancy, round atelectasis or benign lesion secondary to possible histoplasmosis. Patient would be at high risk and recommendations would be for a repeat CT scan in 3 months. If growth, proceeding with biopsy may be difficult given its location close to the diaphragm. 3. RASHEL Patient with significant hypoxia on previous nocturnal oximetry. Should titrate oxygen as necessary to keep saturations above 90% at all times. Patient may require repeat titration versus transition to trilogy. This can be evaluated as an outpatient. 4. Nicotine abuse/non-Hodgkin's lymphoma/diabetes mellitus type 2/delayed presentation Complicates care, management, recovery and prognosis. Okay to continue with baseline medications. Will need to watch blood sugars closely given concomitant steroids. Inpatient E&M: 46140 Init Hosp L3
[2020-04-10] MEDS: IBRUTINIB 420 MG TABLET PO (16:20)
[2020-04-10 16:56] LABS: Bedside Glucose 156 mg/dL (70-110)
[2020-04-10] MEDS: MELATONIN 10 MG TABLET 15 MG PO (21:12)
[2020-04-10] MEDS: Atorvastatin Calcium 10 MG Tablet PO (21:12)
[2020-04-10 21:26] LABS: Bedside Glucose 207 mg/dL (70-110)
[2020-04-11] VITALS (16 sets, daily range): BP systolic 150–175; BP diastolic 74–164; PULSE 67–90; RESP 16–22; TEMP 36.4–36.7; O2SAT 87–97
[2020-04-11] MEDS: 0.9% Saline Lock 10 ML Syringe IV ×3 (06:51→14:02)
[2020-04-11 07:00] LABS: Bedside Glucose 146 mg/dL (70-110)
[2020-04-11] MEDS: Ipratropium/Albuterol Sulfate 3 ML AMPUL.NEB INHALATION ×5 (07:01→23:03)
[2020-04-11] MEDS: Enoxaparin 40 MG/0.4 ML Syringe SC (08:30)
[2020-04-11] MEDS: Losartan Potassium 100 MG Tablet PO (08:30)
[2020-04-11] MEDS: guaiFENesin 1,200 MG Tablet 1200 MG PO ×2 (08:30→22:56)
[2020-04-11] MEDS: Aspirin E.C. 81 MG Tablet PO (08:30)
[2020-04-11] MEDS: FLUoxetine 20 MG Capsule 40 MG PO (08:31)
[2020-04-11] MEDS: amLODIPine 10 MG Tablet PO (08:31)
[2020-04-11] MEDS: Furosemide 40 MG/4 ML Vial IV (10:06)
[2020-04-11 11:40] LABS: Bedside Glucose 137 mg/dL (70-110)
[2020-04-11] MEDS: Acetylcysteine 800 MG/4 ML VIAL.NEB. INHALATION (12:04)
--- NOTE | 2020-04-11 12:26 | PCM.PN.HOSP ---
<Jovany Guevara - Last Filed: 04/11/20 12:26> Patient Problems: Active and Suspected Problems COPD exacerbation (Acute) Acute respiratory failure with hypoxia (Acute) Reason for Visit: SOB Subjective: ongoing sob and o2 requirement. on 4lpm at rest down from 5lpm. cough with increased yellow sputum production today. No fever/chills. No LE edema. No CP. Vitals/I&O's: Vital Signs Temp Pulse Resp BP Pulse Ox 98.1 F 87 17 175/84 H 96 04/11/20 08:18 04/11/20 11:48 04/11/20 11:48 04/11/20 08:18 04/11/20 08:18 Oxygen Flow Rate (L/min) 4 Oxygen Delivery Method Nasal Cannula Weight: 200 lb 6.403 oz Body Mass Index (BMI) 29.5 Intake and Output for Last 24 Hours 04/09/20 04/10/20 04/11/20 23:59 23:59 23:59 Intake Total 1450 / 1450 1520 / 1520 770 / 770 Output Total 1200 / 1200 3000 / 3000 1525 / 1525 Balance 250 / 250 -1480 / -1480 -755 / -755 General: Alert, Oriented x3, Cooperative HEENT: Atraumatic, PERRLA, EOMI, Normocephalic Neck: Supple, No JVD, Negative Carotid Bruits Lungs: Diminished, Rales - faint crackles BL bases Cardiovascular: Regular rate, No murmurs Abdomen: Bowel Sounds Present, Soft, Non Tender Extremities: No edema, Capillary Refill Less than 3 Seconds Skin: No rashes, No breakdown Musculoskeletal: No Tenderness to Palpation of Joints or Extremities Neurological: Cranial nerves II-XII grossly intact Psych/Mental Status: Normal Affect, Appropriate, Alert and oriented to time, place, person, mood and affect Microbiology Past 72 Hours 04/08/20 16:15 Sputum, Expectorated/Coughed Gram Stain - Final 04/08/20 16:15 Sputum, Expectorated/Coughed Respiratory Culture - Preliminary Appears to be normal respiratory juli. Further studies to follow. 04/08/20 11:40 Urine, Clean Catch Urine Culture - Final Mixed Gram Positive Organisms 04/08/20 11:40 Blood Culture (Wb) - Left Hand Blood Culture - Preliminary No growth in 48 hours. 04/08/20 10:27 Blood Culture (Wb) - Anticubital Left Blood Culture - Preliminary No growth in 48 hours. 04/08/20 11:40 Urine, Clean Catch Streptococcus pneumoniae Antigen (M - Final 04/08/20 11:40 Urine, Clean Catch Legionella Antigen - Final 04/08/20 10:55 Mucosa - Nasopharyngeal Respiratory Panel (PCR) - Final Rhinovirus Laboratory Results 04/10/20 16:24: POC Glucose 156 H 04/10/20 21:15: POC Glucose 207 H 04/11/20 06:50: POC Glucose 146 H 04/11/20 11:34: POC Glucose 137 H Current Medications Acetaminophen (Tylenol) 650 mg PO Q6H PRN PRN PRN Reason: Pain Score 1-10/Temp > 100.7 F Acetylcysteine (Mucomyst) 800 mg INHALATION Q8H.RT [facility] Last Admin: 04/11/20 12:04 Dose: 800 mg Documented by: Al Hydroxide/Mg Hydroxide (Mylanta Ii) 30 ml PO Q6H PRN PRN PRN Reason: Gastric Burning Albuterol Sulfate (Ventolin Aerosols) 2.5 mg INHALATION Q2H PRN PRN PRN Reason: SOB/Wheezing Albuterol/Ipratropium (Duoneb) 3 ml INHALATION Q4H.RT [facility] Last Admin: 04/11/20 11:46 Dose: 3 ml Documented by: Amlodipine Besylate (Norvasc) 10 mg PO DAILY [facility] Last Admin: 04/11/20 08:31 Dose: 10 mg Documented by: Aspirin (Ecotrin) 81 mg PO DAILYCM [facility] Last Admin: 04/11/20 08:30 Dose: 81 mg Documented by: Atorvastatin Calcium (Lipitor) 10 mg PO QHS [facility] Last Admin: 04/10/20 21:12 Dose: 10 mg Documented by: Docusate Sodium (Colace) 100 mg PO BID PRN PRN PRN Reason: Constipation Enoxaparin Sodium (Lovenox) 40 mg SC DAILY [facility] Last Admin: 04/11/20 08:30 Dose: 40 mg Documented by: Fluoxetine HCl (Prozac) 40 mg PO DAILY [facility] Last Admin: 04/11/20 08:31 Dose: 40 mg Documented by: Guaifenesin (Mucinex) 1,200 mg PO BID [facility] Last Admin: 10/02/20 08:30 Dose: 1,200 mg Documented by: Insulin Human Lispro (Humalog Kwikpen (Bkc)) 0 unit SC ACHS [facility]; Protocol Last Admin: 04/11/20 11:37 Dose: Not Given Documented by: Losartan Potassium (Cozaar) 100 mg PO DAILY [facility] Last Admin: 04/11/20 08:30 Dose: 100 mg Documented by: Melatonin (Melatonin) 15 mg PO QHS PRN PRN PRN Reason: INSOMNIA Last Admin: 04/10/20 21:12 Dose: 15 mg Documented by: Methylprednisolone (Solu-Medrol) 40 mg IV Q8 [facility] Last Admin: 04/11/20 06:51 Dose: 40 mg Documented by: Nicotine (Nicoderm Cq (Pbkc)) 21 mg TRANSDERM. DAILY [facility] Last Admin: 04/11/20 08:30 Dose: 21 mg Documented by: Sodium Chloride () 10 - 40 ml IV UD PRN PRN Reason: SALINE FLUSH Last Admin: 04/11/20 10:06 Dose: 10 ml Documented by: Throat Lozenges (Cepacol Sore Throat Lozenge) 1 lozenge MUCOUS MEM Q2H PRN PRN PRN Reason: SORE THROAT STROKE Vital Signs/Narrative: Vital Signs Pulse Resp 04/11/20 11:48 87 17 Medical Necessity - Tobacco Use Smoking Status: Current every day smoker Tobacco Use: Cigarettes Assessment/Plan All Active Problems COPD exacerbation (Acute) Acute respiratory failure with hypoxia (Acute) 1. Acute hypoxic respiratory failure 2/2 Acute COPD exacerbation 2/2 Rhinovirus - solumedrol/duonebs. pulm following. Incentive spirometer. -Echo shows EF 65%, no diastolic dysfunction, unable to estimate RVSP, probable normal pulm artery pressure, normal left and right atria, dilated IVC, no valvular abnormalities. -lasix x1 given -mucomyst started -per pulm ct with bronchiectasis and COPD. 2. RASHEL - bipap qhs with 4.5 lpm o2 bleed in. 3. Nicotine abuse - 1 ppd, 40 year smoker. nicotine patch applied. 4. NHL - ibrutinib. 5. Pulmonary nodule - repeat imaging needed. pulm consulted. 6. DMt2 - SSI. metformin held. 7. DVT ppx: lovenox DC planning: wean o2 as tolerated. may need new home o2 Rx. This patient was seen by Jovany Guevara PA-C under the supervision of Dr. Fenton. <JossyBrown E - Last Filed: 04/11/20 12:57> Vitals/I&O's: Vital Signs Temp Pulse Resp BP Pulse Ox 98.1 F 87 17 175/84 H 96 04/11/20 08:18 04/11/20 11:48 04/11/20 11:48 04/11/20 08:18 04/11/20 08:18 Oxygen Flow Rate (L/min) 4 Oxygen Delivery Method Nasal Cannula Weight: 200 lb 6.403 oz Body Mass Index (BMI) 29.5 Intake and Output for Last 24 Hours 04/09/20 04/10/20 04/11/20 23:59 23:59 23:59 Intake Total 1450 / 1450 1520 / 1520 770 / 770 Output Total 1200 / 1200 3000 / 3000 1525 / 1525 Balance 250 / 250 -1480 / -1480 -755 / -755 Microbiology Past 72 Hours 04/08/20 16:15 Sputum, Expectorated/Coughed Gram Stain - Final 04/08/20 16:15 Sputum, Expectorated/Coughed Respiratory Culture - Preliminary Appears to be normal respiratory juli. Further studies to follow. 04/08/20 11:40 Urine, Clean Catch Urine Culture - Final Mixed Gram Positive Organisms 04/08/20 11:40 Blood Culture (Wb) - Left Hand Blood Culture - Preliminary No growth in 48 hours. 04/08/20 10:27 Blood Culture (Wb) - Anticubital Left Blood Culture - Preliminary No growth in 48 hours. 04/08/20 11:40 Urine, Clean Catch Streptococcus pneumoniae Antigen (M - Final 04/08/20 11:40 Urine, Clean Catch Legionella Antigen - Final 04/08/20 10:55 Mucosa - Nasopharyngeal Respiratory Panel (PCR) - Final Rhinovirus Laboratory Results 04/10/20 16:24: POC Glucose 156 H 04/10/20 21:15: POC Glucose 207 H 04/11/20 06:50: POC Glucose 146 H 04/11/20 11:34: POC Glucose 137 H Current Medications Acetaminophen (Tylenol) 650 mg PO Q6H PRN PRN PRN Reason: Pain Score 1-10/Temp > 100.7 F Acetylcysteine (Mucomyst) 800 mg INHALATION Q8H.RT [facility] Last Admin: 04/11/20 12:04 Dose: 800 mg Documented by: Al Hydroxide/Mg Hydroxide (Mylanta Ii) 30 ml PO Q6H PRN PRN PRN Reason: Gastric Burning Albuterol Sulfate (Ventolin Aerosols) 2.5 mg INHALATION Q2H PRN PRN PRN Reason: SOB/Wheezing Albuterol/Ipratropium (Duoneb) 3 ml INHALATION Q4H.RT [facility] Last Admin: 04/11/20 11:46 Dose: 3 ml Documented by: Amlodipine Besylate (Norvasc) 10 mg PO DAILY [facility] Last Admin: 04/11/20 08:31 Dose: 10 mg Documented by: [facility] Admin: 04/11/20 08:30 Dose: 81 mg Documented by: Atorvastatin Calcium (Lipitor) 10 mg PO QHS [facility] Last Admin: 04/10/20 21:12 Dose: 10 mg Documented by: Docusate Sodium (Colace) 100 mg PO BID PRN PRN PRN Reason: Constipation Enoxaparin Sodium (Lovenox) 40 mg SC DAILY [facility] Last Admin: 04/11/20 08:30 Dose: 40 mg Documented by: Fluoxetine HCl (Prozac) 40 mg PO DAILY [facility] Last Admin: 04/11/20 08:31 Dose: 40 mg Documented by: Guaifenesin (Mucinex) 1,200 mg PO BID [facility] Last Admin: 04/11/20 08:30 Dose: 1,200 mg Documented by: Hydralazine HCl (Apresoline Iv) 10 mg IV Q6H PRN PRN PRN Reason: BLOOD PRESSURE Insulin Human Lispro (Humalog Kwikpen (Bkc)) 0 unit SC [facility]; Protocol Last Admin: 04/11/20 11:37 Dose: Not Given Documented by: Losartan Potassium (Cozaar) 100 mg PO DAILY [facility] Last Admin: 04/11/20 08:30 Dose: 100 mg Documented by: Melatonin (Melatonin) 15 mg PO QHS PRN PRN PRN Reason: INSOMNIA Last Admin: 04/10/20 21:12 Dose: 15 mg Documented by: Methylprednisolone (Solu-Medrol) 40 mg IV Q8 [facility] Last Admin: 04/11/20 06:51 Dose: 40 mg Documented by: Nicotine (Nicoderm Cq (Pbkc)) 21 mg TRANSDERM. DAILY [facility] Last Admin: 04/11/20 08:30 Dose: 21 mg Documented by: Sodium Chloride () 10 - 40 ml IV UD PRN PRN Reason: SALINE FLUSH Last Admin: 04/11/20 10:06 Dose: 10 ml Documented by: Throat Lozenges (Cepacol Sore Throat Lozenge) 1 lozenge MUCOUS MEM Q2H PRN PRN PRN Reason: SORE THROAT STROKE Vital Signs/Narrative: Vital Signs Pulse Resp 04/11/20 11:48 87 17 Assessment/Plan Hospitalist note: I am seeing this patient in conjunction with Jovany Guevara. I independently seen and examined the patient. Progress note above reviewed and I concur with above treatment plan. Today, patient reported minimal improvement of her symptoms, still requiring high flow oxygen, it went down to 4 L at rest. Still complaining of difficulty expectorating sputum. He has been afebrile, requiring up to 5 L of oxygen, other vital signs are stable. - Physical Exam General: Alert, Oriented x3, Cooperative, minimally short of breath. HEENT: Atraumatic, PERRLA, EOMI. Neck: Supple, No JVD, Negative Carotid Bruits, Trachea Midline, Thyroid Normal. Lungs: Decreased breath sounds bilateral, occasional wheezes, rhonchi, no rales. Cardiovascular: Regular rate, Regular Rhythm, Normal S1, Normal S2, PMI Normal. Abdomen: Bowel Sounds Present, Soft, Non Tender, Non-Distended, No Hepato-splenomegaly. Extremities: No clubbing, No cyanosis, No edema Skin: No rashes, No breakdown Neurological: Cranial nerves are intact, neuro grossly intact Assessment and plan: #1 acute hypoxic respiratory failure: Secondary to acute COPD exacerbation which was triggered by rhinovirus. Remained on IV steroids and bronchodilators. CTA chest showed no PE or dissection, revealed left lower lobe peripheral lung nodule measuring about 7.8 mm. He reported minimal improvement, still requiring high flow oxygen. 2D echocardiogram revealed ejection fraction of 65%. Plan: We will give 1 dose of IV Lasix, Mucomyst nebulizer 3 times daily, wean off oxygen as tolerated. #2 acute COPD exacerbation: Triggered by rhinovirus. As mentioned above, patient is on IV steroids and bronchodilators. Pneumococcal and Legionella antigen were negative. Blood culture showed no growth in 48 hours. COVID-19 PCR was negative. Sputum culture revealed normal aspiratory juli, final is pending. Pulmonology on the case. Plan as above. #3 pulmonary nodule: Pulmonology recommended repeat CT scan chest in 3 months. #4 Other chronic medical problems: Stable, continue current medications as above. This note was generated with [employer] dictation software. It may contain incorrect words, spelling, and punctuation that were not noted in checking the note before signing. Inpatient E&M: 33226 Subs Hosp L2
--- NOTE | 2020-04-11 14:21 | PN_ITS ---
Patient Problems: Active and Suspected Problems Acute respiratory failure with hypoxia (Acute) Subjective: Patient did well overnight. Patient did receive Lasix this morning with subjective improvement in dyspnea. Patient denies any current chest pain and feels this cough is improved. Objective: Echocardiogram showed an EF of 65% with inability to estimate RVSP. Patient was noted to have a dilated IVC. - Physical Exam Vitals/I&O's: Vital Signs Temp Pulse Resp BP Pulse Ox 36.7 C 78 17 157/74 H 96 04/11/20 13:50 04/11/20 13:50 04/11/20 13:50 04/11/20 13:50 04/11/20 13:50 Oxygen Flow Rate (L/min) [ 4 AMBULATION with Oxygen] Oxygen Flow Rate (L/min) 4 Oxygen Delivery Method Nasal Cannula Weight: 90.9 kg Body Mass Index (BMI) 29.5 Intake and Output for Last 24 Hours 04/09/20 04/10/20 04/11/20 23:59 23:59 23:59 Intake Total 1450 / 1450 1520 / 1520 770 / 770 Output Total 1200 / 1200 3000 / 3000 1525 / 1525 Balance 250 / 250 -1480 / -1480 -755 / -755 General: Alert, Oriented x3 HEENT: Atraumatic, PERRLA, EOMI, Normocephalic, - - No scleral icterus or injection noted Oral: Moist Mucosa, No Gingival or Mucosal Lesions/ Ulcerations Neck: Supple, No JVD, No Nodes, Trachea Midline Lungs: No rhonchi, No wheeze, No rales, Diminished, - - Symmetric expansion. Cardiovascular: Regular rate, Regular Rhythm, Normal S1, Normal S2, No murmurs, No rub noted, No Gallop Abdomen: Bowel Sounds Present, Soft, Non Tender, Non-Distended, Obese Extremities: No clubbing, No cyanosis, No edema Skin: - - No change from previous Musculoskeletal: No Tenderness to Palpation of Joints or Extremities Lymphatic: No Cervical, Supraclavicular, or Inguinal Adenopathy Neurological: Cranial nerves II-XII grossly intact, Neuro grossly intact, Motor Exam 5/5 strength throughout Psych/Mental Status: Alert and oriented to time, place, person, mood and affect Microbiology Past 72 Hours 04/08/20 16:15 Sputum, Expectorated/Coughed Gram Stain - Final 04/08/20 16:15 Sputum, Expectorated/Coughed Respiratory Culture - Preliminary Appears to be normal respiratory juli. Further studies to follow. 04/08/20 11:40 Urine, Clean Catch Urine Culture - Final Mixed Gram Positive Organisms 04/08/20 11:40 Blood Culture (Wb) - Left Hand Blood Culture - Preliminary No growth in 48 hours. 04/08/20 10:27 Blood Culture (Wb) - Anticubital Left Blood Culture - Preliminary No growth in 48 hours. 04/08/20 11:40 Urine, Clean Catch Streptococcus pneumoniae Antigen (M - Amira l 04/08/20 11:40 Urine, Clean Catch Legionella Antigen - Final 04/08/20 10:55 Mucosa - Nasopharyngeal Respiratory Panel (PCR) - Final Rhinovirus Laboratory Results 04/10/20 16:24: POC Glucose 156 H 04/10/20 21:15: POC Glucose 207 H 04/11/20 06:50: POC Glucose 146 H 04/11/20 11:34: POC Glucose 137 H Current Medications Acetaminophen (Tylenol) 650 mg PO Q6H PRN PRN PRN Reason: Pain Score 1-10/Temp > 100.7 F Al Hydroxide/Mg Hydroxide (Mylanta Ii) 30 ml PO Q6H PRN PRN PRN Reason: Gastric Burning Albuterol Sulfate (Ventolin Aerosols) 2.5 mg INHALATION Q2H PRN PRN PRN Reason: SOB/Wheezing Albuterol/Ipratropium (Duoneb) 3 ml INHALATION Q4H.RT [facility] Last Admin: 04/11/20 11:46 Dose: 3 ml Documented by: Amlodipine Besylate (Norvasc) 10 mg PO DAILY [facility] Last Admin: 04/11/20 08:31 Dose: 10 mg Documented by: Aspirin (Ecotrin) 81 mg PO DAILYCM [facility] Last Admin: 04/11/20 08:30 Dose: 81 mg Documented by: Atorvastatin Calcium (Lipitor) 10 mg PO QHS [facility] Last Admin: 04/10/20 21:12 Dose: 10 mg Documented by: Docusate Sodium (Colace) 100 mg PO BID PRN PRN PRN Reason: Constipation Enoxaparin Sodium (Lovenox) 40 mg SC DAILY [facility] Last Admin: 04/11/20 08:30 Dose: 40 mg Documented by: Fluoxetine HCl (Prozac) 40 mg PO DAILY [facility] Last Admin: 04/11/20 08:31 Dose: 40 mg Documented by: Guaifenesin (Mucinex) 1,200 mg PO BID [facility] Last Admin: 04/11/20 08:30 Dose: 1,200 mg Documented by: Hydralazine HCl (Apresoline Iv) 10 mg IV Q6H PRN PRN PRN Reason: BLOOD PRESSURE Insulin Human Lispro (Humalog Kwikpen (Bkc)) 0 unit SC ACHS [facility]; Protocol Last Admin: 04/11/20 11:37 Dose: Not Given Documented by: Losartan Potassium (Cozaar) 100 mg PO DAILY [facility] Last Admin: 04/11/20 08:30 Dose: 100 mg Documented by: Melatonin (Melatonin) 15 mg PO QHS PRN PRN PRN Reason: INSOMNIA Last Admin: 04/10/20 21:12 Dose: 15 mg Documented by: Methylprednisolone (Solu-Medrol) 40 mg IV Q8 [facility] Last Admin: 04/11/20 13:59 Dose: 40 mg Documented by: Nicotine (Nicoderm Cq ([facility])) 21 mg TRANSDERM. DAILY [facility] Last Admin: 04/11/20 08:30 Dose: 21 mg Documented by: Sodium Chloride () 10 - 40 ml IV UD PRN PRN Reason: SALINE FLUSH Last Admin: 04/11/20 14:02 Dose: 10 ml Documented by: Throat Lozenges (Cepacol Sore Throat Lozenge) 1 lozenge MUCOUS MEM Q2H PRN PRN PRN Reason: SORE THROAT Medical Necessity - Tobacco Use Smoking Status: Current every day smoker Tobacco Use: Cigarettes Assessment/Plan All Active Problems COPD exacerbation (Acute) Acute respiratory failure with hypoxia (Acute) RECOMMENDATIONS: 1. Agree with intermittent diuretic therapy 2. Continue bronchodilators, mucolytic, steroids and supplemental oxygen 3. Possible discharge tomorrow with supplemental oxygen 4. Outpatient complete PFT 5. Continue BiPAP with sleep and titrate supplemental oxygen as necessary IMPRESSIONS: 1. Acute hypoxic respiratory insufficiency secondary to probable acute COPD exacerbation secondary to rhinovirus/bronchiectasis Clinical suspicion for multiple etiologies. Patient does appear to have COPD and bronchiectasis on CT scan. Both of these would be exacerbated by rhinovirus. Patient is appropriately on steroids, bronchodilators and supplemental oxygen. Patient received a dose of IV Lasix this morning with subjective improvement in overall condition. Patient actually has a recorded room air saturation of 93%, but did desaturate with ambulation. This would be suggestive of an element of pulmonary hypertension. This is difficult to relate clinically in the setting of acute rhinovirus infection. Patient may require an outpatient right heart catheterization for quantification and clarification of pulmonary artery pressures. If patient continues to improve, potential discharge tomorrow with probable supplemental oxygen would be appropriate. Patient will need a 12-day taper of prednisone therapy and follow-up in our office in 2 weeks. 2. New pulmonary nodule Differential diagnosis would include malignancy, round atelectasis or benign lesion secondary to possible histoplasmosis. Patient would be at high risk and recommendations would be for a repeat CT scan in 3 months. If growth, proceeding with biopsy may be difficult given its location close to the diaphragm. 3. RASHEL Patient with significant hypoxia on previous nocturnal oximetry. Should titrate oxygen as necessary to keep saturations above 90% at all times. Patient may require repeat titration versus transition to trilogy. This can be evaluated as an outpatient. 4. Nicotine abuse/non-Hodgkin's lymphoma/diabetes mellitus type 2/delayed presentation Complicates care, management, recovery and prognosis. Okay to continue with baseline medications. Will need to watch blood sugars closely given concomitant steroids. Inpatient E&M: 29953 Subs Hosp L2
--- NOTE | 2020-04-11 14:29 | CASEMGMT ---
Call to [facility] and per Janet, pt has an order for 4liters bleed into cpap at bedtime currently. Pt has a concentrator at home and 1 e-tank for back up but states he has had that for a long and 'not sure it still works.' Jante aware that pt will most likely d/c tomorrow and should qualify for home O2 either continuous or with exertion. Per Janet, they would like to have pt tested today so that they can deliver an e-tank to pt today to have for discharge tomorrow. Pt tested and does qualify for 4liters with exertion at this time and order faxed to [facility] at this time. Call to [facility] and Janet aware that pt will need 4liters with exertion and she states they will deliver e-tank to hospital and also see if they can deliver the portables to the home today. Pt updated on all, voices understanding. Pt voices no further questions/concerns/needs this time. Shane BROOKS CM
[2020-04-11] MEDS: Insulin Lispro 100 UNIT/ML INSULN.PEN SC ×2 (15:48→22:03)
[2020-04-11] MEDS: IBRUTINIB 420 MG TABLET PO (15:52)
[2020-04-11 16:01] LABS: Bedside Glucose 187 mg/dL (70-110)
[2020-04-11] MEDS: Atorvastatin Calcium 10 MG Tablet PO (22:04)
[2020-04-11] MEDS: MELATONIN 10 MG TABLET 15 MG PO (22:05)
[2020-04-11 23:16] LABS: Bedside Glucose 273 mg/dL (70-110)
[2020-04-12] VITALS (7 sets, daily range): BP systolic 139–164; BP diastolic 60–81; PULSE 65–92; RESP 16–18; TEMP 36.2–36.8; O2SAT 93–96
[2020-04-12] MEDS: 0.9% Saline Lock 10 ML Syringe IV (05:34)
[2020-04-12 06:51] LABS: Bedside Glucose 144 mg/dL (70-110)
[2020-04-12 07:44] LABS: Anion Gap 0 (5-15); BUN 18 mg/dL (7-18); BUN/Creat Ratio 27.3 RATIO (10-20); Calcium,Total 8.9 mg/dL (8.5-10.1); Chloride 101 mmol/L (98-107); Creatinine, Serum 0.66 mg/dL (0.70-1.30); EST Glomerular Filtration Rate 131 mL/min (>60); Est Glom Filt Rate - Afr Amer 159 mL/min (>60); Estimated Creatinine Clearance 120.51 ml/min; Glucose 161 mg/dL (74-106); Potassium 4.2 mmol/L (3.5-5.1); Sodium Level 137 mmol/L (136-145)
[2020-04-12] MEDS: Ipratropium/Albuterol Sulfate 3 ML AMPUL.NEB INHALATION ×2 (07:51→10:58)
--- NOTE | 2020-04-12 08:31 | PCM.PN.PUL ---
Patient Problems: Active and Suspected Problems Acute respiratory failure with hypoxia (Acute) Subjective: Patient did okay overnight. Patient continues to require 4 L nasal cannula to maintain saturations. Patient does feel subjectively improved compared to yesterday. Patient reports she had a walking oximetry yesterday and tolerated 4 L nasal cannula. Patient does not have supplemental for ambulation oxygen at baseline. - Physical Exam Vitals/I&O's: Vital Signs Temp Pulse Resp BP Pulse Ox 36.3 C L 77 16 150/78 H 94 04/12/20 06:51 04/12/20 07:51 04/12/20 07:51 04/12/20 06:51 04/12/20 07:51 Oxygen Flow Rate (L/min) [ 4 AMBULATION with Oxygen] Oxygen Flow Rate (L/min) 4 Oxygen Delivery Method Nasal Cannula Weight: 90.9 kg Body Mass Index (BMI) 29.5 Intake and Output for Last 24 Hours 04/10/20 04/11/20 04/12/20 23:59 23:59 23:59 Intake Total 1520 / 1520 1130 / 1130 Output Total 3000 / 3000 2775 / 2775 550 / 550 Balance -1480 / -1480 -1645 / -1645 -550 / -550 General: Alert, Oriented x3, Cooperative, No apparent distress, Well developed, Well nourished, - - Obese. Appears older than stated age HEENT: Atraumatic, PERRLA, EOMI, Normocephalic, - - No scleral icterus or injection noted. Supplemental oxygen in place. Oral: Moist Mucosa, No Gingival or Mucosal Lesions/ Ulcerations Neck: Supple, No Nodes, Trachea Midline, JVD, Right Lungs: No rhonchi, No rales, Diminished, Wheezes - And exhalation Cardiovascular: Regular rate, Regular Rhythm, Normal S1, Normal S2, No murmurs, No rub noted, No Gallop Abdomen: Bowel Sounds Present, Soft, Non Tender, Non-Distended, Obese Extremities: No clubbing, No cyanosis, No edema, Capillary Refill Less than 3 Seconds Skin: No rashes, No breakdown Musculoskeletal: No Tenderness to Palpation of Joints or Extremities Lymphatic: No Cervical, Supraclavicular, or Inguinal Adenopathy Neurological: Cranial nerves II-XII grossly intact, Neuro grossly intact, Motor Exam 5/5 strength throughout Psych/Mental Status: Alert and oriented to time, place, person, mood and affect Microbiology Past 72 Hours 04/08/20 16:15 Sputum, Expectorated/Coughed Gram Stain - Final 04/08/20 16:15 Sputum, Expectorated/Coughed Respiratory Culture - Preliminary Streptococcus pneumoniae 04/08/20 11:40 Urine, Clean Catch Urine Culture - Final Mixed Gram Positive Organisms 04/08/20 11:40 Blood Culture (Wb) - Left Hand Blood Culture - Preliminary No growth in 48 hours. 04/08/20 10:27 Blood Culture (Wb) - Anticubital Left Blood Culture - Preliminary No growth in 48 hours. Laboratory Results 04/11/20 11:34: POC Glucose 137 H 04/11/20 15:48: POC Glucose 187 H 04/11/20 22:02: POC Glucose 273 H 04/12/20 06:45: POC Glucose 144 H 04/12/20 07:05: Sodium 137, Potassium 4.2, Chloride 101, Carbon Dioxide 36.0 H, Anion Gap 0 L, BUN 18, Creatinine 0.66 L, Estim Creat Clear Calc 120.51, Est GFR (MDRD) Af Amer 159, Est GFR (MDRD) Non-Af 131, BUN/Creatinine Ratio 27.3 H, Glucose 161 H, Calcium 8.9 Current Medications Acetaminophen (Tylenol) 650 mg PO Q6H PRN PRN PRN Reason: Pain Score 1-10/Temp > 100.7 F Al Hydroxide/Mg Hydroxide (Mylanta Ii) 30 ml PO Q6H PRN PRN PRN Reason: Gastric Burning Albuterol Sulfate (Ventolin Aerosols) 2.5 mg INHALATION Q2H PRN PRN PRN Reason: SOB/Wheezing Albuterol/Ipratropium (Duoneb) [address] [facility] Last Admin: 04/12/20 07:51 Dose: 3 ml Documented by: Amlodipine Besylate (Norvasc) [address] [facility] Last Admin: 04/11/20 08:31 Dose: 10 mg Documented by: [facility] Admin: 04/11/20 08:30 Dose: 81 mg Documented by: Atorvastatin Calcium (Lipitor) [address] [facility] Last Admin: 04/11/20 22:04 Dose: 10 mg Documented by: Docusate Sodium (Colace) 100 mg PO BID PRN PRN PRN Reason: Constipation Enoxaparin Sodium (Lovenox) [address] [facility] Last Admin: 04/11/20 08:30 Dose: 40 mg Documented by: Fluoxetine HCl (Prozac) [address] [facility] Last Admin: 04/11/20 08:31 Dose: 40 mg Documented by: Furosemide (Lasix) 40 mg PO X1 ONE Stop: 04/12/20 08:31 Guaifenesin (Mucinex) 1,[address] [facility] Last Admin: 04/11/20 22:56 Dose: 1,200 mg Documented by: Hydralazine HCl (Apresoline Iv) 10 mg IV Q6H PRN PRN PRN Reason: BLOOD PRESSURE Insulin Human Lispro (Humalog Kwikpen (Bkc)) 0 unit [facility]; Protocol Last Admin: 04/12/20 06:50 Dose: Not Given Documented by: Levofloxacin (Levaquin Tablet) 750 mg PO DAILY@0600 [facility] Stop: 04/17/20 12:01 Losartan Potassium (Cozaar) [address] [facility] Last Admin: 04/11/20 08:30 Dose: 100 mg Documented by: Melatonin (Melatonin) 15 mg PO QHS PRN PRN PRN Reason: INSOMNIA Last Admin: 04/11/20 22:05 Dose: 15 mg Documented by: Nicotine (Nicoderm Cq (Pbkc)) [address] [facility] Last Admin: 04/11/20 08:30 Dose: 21 mg Documented by: Prednisone () 40 mg PO DAILY@0800 [facility] Sodium Chloride () 10 - 40 ml IV UD PRN PRN Reason: SALINE FLUSH Last Admin: 04/12/20 05:34 Dose: 10 ml Documented by: Throat Lozenges (Cepacol Sore Throat Lozenge) 1 lozenge MUCOUS MEM Q2H PRN PRN PRN Reason: SORE THROAT Medical Necessity - Tobacco Use Smoking Status: Current every day smoker Tobacco Use: Cigarettes Assessment/Plan All Active Problems COPD exacerbation (Acute) Acute respiratory failure with hypoxia (Acute) RECOMMENDATIONS: 1. Dose with Lasix again today 2. Continue bronchodilators, mucolytic. Transition to p.o. steroids and wean over 12 to 14 days 3. Walking oximetry with discharge on appropriate levels of supplemental oxygen 4. Initiate Levaquin therapy for pneumococcal pneumonia 5. Continue BiPAP with sleep and titrate supplemental oxygen as necessary 6. Outpatient complete PFT, follow-up CT scan and titration polysomnogram can be arranged a 2-week follow-up with nurse practitioner IMPRESSIONS: 1. Acute hypoxic respiratory insufficiency secondary to probable acute COPD exacerbation secondary to rhinovirus and pneumococcus/bronchiectasis Clinical suspicion for multiple etiologies. Patient does appear to have COPD and bronchiectasis on CT scan. Both of these would be exacerbated by rhinovirus. Patient is appropriately on steroids, bronchodilators and supplemental oxygen. Patient received a dose of Lasix with subjective improvement in overall condition. We will dose with Lasix again today patient actually has a recorded room air saturation of 93%, but did desaturate with ambulation. This would be suggestive of an element of pulmonary hypertension. This is difficult to relate clinically in the setting of acute rhinovirus infection. Patient may require an outpatient right heart catheterization for quantification and clarification of pulmonary artery pressures. Okay to discharge on the appropriate supplemental oxygen. Will initiate patient on 5 days of Levaquin therapy given pneumococcal growth and sputum. Patient will need a 12-day taper of prednisone therapy and follow-up in our office in 2 weeks. 2. New pulmonary nodule Differential diagnosis would include malignancy, round atelectasis or benign lesion secondary to possible histoplasmosis. Patient would be at high risk and recommendations would be for a repeat CT scan in 3 months. If growth, proceeding with biopsy may be difficult given its location close to the diaphragm. 3. RASHEL Patient with significant hypoxia on previous nocturnal oximetry. Should titrate oxygen as necessary to keep saturations above 90% at all times. Patient may require repeat titration versus transition to trilogy. This can be evaluated as an outpatient. 4. Nicotine abuse/non-Hodgkin's lymphoma/diabetes mellitus type 2/delayed presentation Complicates care, management, recovery and prognosis. Okay to continue with baseline medications. Will need to watch blood sugars closely given concomitant steroids. Inpatient E&M: 18103 [facility] Hosp L2
[2020-04-12] MEDS: Furosemide 40 MG Tablet PO (10:00)
[2020-04-12] MEDS: guaiFENesin 1,200 MG Tablet 1200 MG PO (10:00)
[2020-04-12] MEDS: Aspirin E.C. 81 MG Tablet PO (10:00)
[2020-04-12] MEDS: Losartan Potassium 100 MG Tablet PO (10:00)
[2020-04-12] MEDS: Enoxaparin 40 MG/0.4 ML Syringe SC (10:00)
[2020-04-12] MEDS: FLUoxetine 20 MG Capsule 40 MG PO (10:01)
[2020-04-12] MEDS: amLODIPine 10 MG Tablet PO (10:01)
--- NOTE | 2020-04-12 10:09 | DCINST_ITS ---
- Discharge Diagnoses Current Active Problems: Current Active and Chronic Problems COPD (chronic obstructive pulmonary disease) (Chronic) Acute respiratory failure with hypoxia (Acute) You will use the following diet at home:: Cardiac Your food should be the consistency of: Regular Your liquids should be the consistency of: Regular/Thin Discharge Activity: Return to Normal Activity Additional Instructions: Continue to use PEP therapy and incentive spirometer. Allergies/Adverse Reactions: Allergies lisinopril Allergy (Verified 04/08/20 14:35) cough Medications to take at Discharge Aspirin E.C. [Ecotrin] 81 mg PO DAILY 01/07/14 Fluoxetine [Prozac] 40 mg PO DAILY 01/07/14 Amlodipine [Norvasc] 10 mg PO DAILY 04/08/20 Atorvastatin Calcium [Lipitor] 20 mg PO QHS 04/08/20 Calcium Carbonate [Calcium] 1,200 mg PO DAILY 04/08/20 Cholecalciferol (Vitamin D3) [Vitamin D3] 2,000 unit PO DAILY 04/08/20 Ibrutinib [Imbruvica] 420 mg PO DAILY 04/08/20 Losartan Potassium 100 mg PO DAILY 04/08/20 Melatonin 20 mg PO QHS 04/08/20 Metformin HCl 500 mg PO BID 04/08/20 Albuterol Inhaler [Ventolin Hfa] 1 puff INHALATION Q4H PRN PRN #1 inhaler 04/12/20 Furosemide [Lasix] 20 mg PO DAILY 5 Days #5 tab 04/12/20 Guaifenesin [Mucinex] 1,200 mg PO BID tablet 04/12/20 levoFLOXacin tablet [Levaquin tablet] 750 mg PO DAILY@0600 #4 tab 04/12/20 predniSONE tablet See Taper PO DAILY@0800 #26 tab 04/12/20 The following prescriptions were given: Furosemide [Lasix] 20 mg PO DAILY 5 Days #5 tab Transmission Status: Pending to [facility] #30 levoFLOXacin tablet [Levaquin tablet] 750 mg PO DAILY@0600 #4 tab Transmission Status: Pending to [facility]30 predniSONE tablet See Taper PO DAILY@0800 #26 tab Transmission Status: Pending to [facility]30 Albuterol Inhaler [Ventolin Hfa] 1 puff INHALATION Q4H PRN PRN #1 inhaler PRN Reason: Sob &/Or Wheezing Transmission Status: Pending to [facility]30 Primary Care Physician: Hector Vega MD [Primary Care Provider] - Please follow up with your Primary Care Physician in: 1-2 weeks Test Results: Test results from this visit will be discussed in further detail at your follow- up appointment, if applicable. Please Follow Up With: Corrie Torres NP-C When: 2 weeks Proposed Discharge Date: 04/12/20
[2020-04-12] MEDS: Insulin Lispro 100 UNIT/ML INSULN.PEN SC (11:34)
[2020-04-12] MEDS: levoFLOXacin 750 MG Tablet PO (11:38)
[2020-04-12 11:41] LABS: Bedside Glucose 173 mg/dL (70-110)
[2020-04-12] MEDS: predniSONE 20 MG Tablet 40 MG PO (11:42)
--- NOTE | 2020-04-12 12:00 | PCM.DC.SUM ---
<Jovany Guevara - Last Filed: 04/12/20 12:00> Discharge Date and Diagnosis - Problem List Patient Problems: Active and Suspected Problems Acute respiratory failure with hypoxia (Acute) Date of Admission: 04/08/20 Date of Discharge: 04/12/20 - Primary Discharge Diagnosis Acute Problems: Active Problems Acute respiratory failure with hypoxia (Acute) 2/2 COPD exacerbation, streptococcal pneumonia, rhinovirus Pulmonary Nodule Nicotine abuse RASHEL Hx NHL. - Secondary Discharge Diagnosis Chronic Problems: Chronic Problems Type 2 diabetes mellitus (Chronic) COPD (chronic obstructive pulmonary disease) (Chronic) Hypertension (Chronic) Depression (Chronic) Hyperlipemia (Chronic) BPH (benign prostatic hypertrophy) (Chronic) Hospital Course and Treatment Imaging Results: CT/CTA Chest W/WO Contrast IMPRESSION: No evidence of pulmonary embolism. 7.8 mm nodule in the peripheral lateral aspect of the left lower lobe. This was not present on prior study. Bilateral adrenal hyperplasia. RAD/Chest 1 View (Portable) IMPRESSION: Hyperinflation. 2D Echo: Interpretation Summary The estimated ejection fraction is 65 %. No evidence for diastolic dysfunction. The inferior vena cava is dilated Consults: Shaheen - pulmonary Operations: None Procedures: 2-D Echocardiogram Summary of Care Provided: Hospital Course: The patient is a 60 year old M with pmhx of heavy smoking, RASHEL on bipap at home, NHL, who presented to the ER with c/o SOB. The patient had been feeling ill for about a week and had sudden worsening of his SOB. His O2 sat was 70% and he was placed on 6lpm o2 to maintain adequate sats. He was wheezy on exam. He smoked about 40 yeras but did not have a formal COPD diagnosis. He had seen Dr. Millan about 5 years ago but had no follow up since. He is compliant with Bipap at night he uses for RASHEL. CXR showed hyperinflation. CTA chest was performed showing a 7.8mm nodule in the left lower lobe and BL adrenal hyperplasia. The patient was admitted to the PCU. He was treated with steroids, azithromycin, and aerosols. He improved but continued to require 4-5 lpm oxygen. Respiratory panel showed rhinovirus and abx were stopped. Sputum Culture showed Strep pneumo so levaquin was started. He responded well to steroids and aerosols. He also was trialled with low dose lasix. Echo was obtained, as above. Pulmonary medicine was consulted. They recommended a steroid taper and 5 days of levaquin with follow up in the office in 5 days. He was discharged home with antibiotics, predisone taper, albuterol, and 5 days of 20 mg po qd lasix. He will follow up with pulmonary medicine in 2 weeks. FOllow up with PCP in 1-2 weeks. He also went home with oxygen as he continues to require 4lpm o2 to maintain adequate sats. This patient was seen by Jovany Guevara PA-C under the supervision of Dr. Fenton [] Patient Problems: Active and Suspected Problems Acute respiratory failure with hypoxia (Acute) - Physical Exam Vitals/I&O's: Vital Signs Temp Pulse Resp BP Pulse Ox 98.2 F 84 16 164/81 H 95 04/12/20 10:04 04/12/20 10:58 04/12/20 10:58 04/12/20 10:04 04/12/20 10:04 Oxygen Flow Rate (L/min) [ 4 AMBULATION with Oxygen] Oxygen Flow Rate (L/min) 4 Oxygen Delivery Method Nasal Cannula Weight: 200 lb 6.403 oz Body Mass Index (BMI) 29.5 Intake and Output for Last 24 Hours 04/10/20 04/11/20 04/12/20 23:59 23:59 23:59 Intake Total 1520 / 1520 1130 / 1130 500 / 500 Output Total 3000 / 3000 2775 / 2775 1150 / 1150 Balance -1480 / -1480 -1645 / -1645 -650 / -650 General: Alert, Oriented x3, Cooperative HEENT: Atraumatic, PERRLA, EOMI, Normocephalic Neck: Supple, No JVD, Negative Carotid Bruits Lungs: Clear to auscultation, Normal air movement Cardiovascular: Regular rate, No murmurs Abdomen: Bowel Sounds Present, Soft, Non Tender Extremities: No edema, Capillary Refill Less than 3 Seconds Skin: No rashes, No breakdown Musculoskeletal: No Tenderness to Palpation of Joints or Extremities Neurological: Cranial nerves II-XII grossly intact Psych/Mental Status: Normal Affect, Appropriate, Alert and oriented to time, place, person, mood and affect Microbiology Past 72 Hours 04/08/20 16:15 Sputum, Expectorated/Coughed Gram Stain - Final 04/08/20 16:15 Sputum, Expectorated/Coughed Respiratory Culture - Preliminary Streptococcus pneumoniae 04/08/20 11:40 Urine, Clean Catch Urine Culture - Final Mixed Gram Positive Organisms 04/08/20 11:40 Blood Culture (Wb) - Left Hand Blood Culture - Preliminary No growth in 48 hours. 04/08/20 10:27 Blood Culture (Wb) - Anticubital Left Blood Culture - Preliminary No growth in 48 hours. Laboratory Results 04/11/20 15:48: POC Glucose 187 H 04/11/20 22:02: POC Glucose 273 H 04/12/20 06:45: POC Glucose 144 H 04/12/20 07:05: Sodium 137, Potassium 4.2, Chloride 101, Carbon Dioxide 36.0 H, Anion Gap 0 L, BUN 18, Creatinine 0.66 L, Estim Creat Clear Calc 120.51, Est GFR (MDRD) Af Amer 159, Est GFR (MDRD) Non-Af 131, BUN/Creatinine Ratio 27.3 H, Glucose 161 H, Calcium 8.9 04/12/20 11:32: POC Glucose 173 H Current Medications Acetaminophen (Tylenol) 650 mg PO Q6H PRN PRN PRN Reason: Pain Score 1-10/Temp > 100.7 F Al Hydroxide/Mg Hydroxide (Mylanta Ii) 30 ml PO Q6H PRN PRN PRN Reason: Gastric Burning Albuterol Sulfate (Ventolin Aerosols) 2.5 mg INHALATION Q2H PRN PRN PRN Reason: SOB/Wheezing Albuterol/Ipratropium (Duoneb) 3 ml INHALATION Q4H.RT [facility] Last Admin: 04/12/20 10:58 Dose: 3 ml Documented by: Amlodipine Besylate (Norvasc) 10 mg PO DAILY [facility] Last Admin: 04/12/20 10:01 Dose: 10 mg Documented by: [facility]) [facility] Last Admin: 04/12/20 10:00 Dose: 81 mg Documented by: Atorvastatin Calcium (Lipitor) 10 mg PO QHS [facility] Last Admin: 04/11/20 22:04 Dose: 10 mg Documented by: Docusate Sodium (Colace) 100 mg PO BID PRN PRN PRN Reason: Constipation Enoxaparin Sodium (Lovenox) 40 mg SC DAILY [facility] Last Admin: 04/12/20 10:00 Dose: 40 mg Documented by: Fluoxetine HCl (Prozac) 40 mg PO DAILY [facility] Last Admin: 04/12/20 10:01 Dose: 40 mg Documented by: Guaifenesin (Mucinex) 1,200 mg PO BID [facility] Last Admin: 04/12/20 10:00 Dose: 1,200 mg Documented by: Hydralazine HCl (Apresoline Iv) 10 mg IV Q6H PRN PRN PRN Reason: BLOOD PRESSURE Insulin Human Lispro (Humalog Kwikpen (Bkc)) 0 unit SC [facility]; Protocol Last Admin: 04/12/20 11:34 Dose: 1 units Documented by: Levofloxacin (Levaquin Tablet) 750 mg PO DAILY@0600 [facility] Stop: 04/17/20 12:01 Last Admin: 04/12/20 11:38 Dose: 750 mg Documented by: Losartan Potassium (Cozaar) 100 mg PO DAILY [facility] Last Admin: 04/12/20 10:00 Dose: 100 mg Documented by: Melatonin (Melatonin) 15 mg PO QHS PRN PRN PRN Reason: INSOMNIA Last Admin: 04/11/20 22:05 Dose: 15 mg Documented by: Nicotine (Nicoderm Cq (Pbkc)) 21 mg TRANSDERM. DAILY [facility] Last Admin: 04/12/20 10:00 Dose: 21 mg Documented by: Prednisone () 40 mg PO DAILY@0800 [facility] Last Admin: 04/12/20 11:42 Dose: 40 mg Documented by: Sodium Chloride () 10 - 40 ml IV UD PRN PRN Reason: SALINE FLUSH Last Admin: 04/12/20 05:34 Dose: 10 ml Documented by: Throat Lozenges (Cepacol Sore Throat Lozenge) 1 lozenge MUCOUS MEM Q2H PRN PRN PRN Reason: SORE THROAT Discharge Diet: Low fat/ Low Cholesterol, 2000 mg Sodium Diet Discharge Activity: Return to Normal Activity Home Medications: Medications to take at Discharge Aspirin E.C. [Ecotrin] 81 mg PO DAILY 01/07/14 Fluoxetine [Prozac] 40 mg PO DAILY 01/07/14 Amlodipine [Norvasc] 10 mg PO DAILY 04/08/20 Atorvastatin Calcium [Lipitor] 20 mg PO QHS 04/08/20 Calcium Carbonate [Calcium] 1,200 mg PO DAILY 04/08/20 Cholecalciferol (Vitamin D3) [Vitamin D3] 2,000 unit PO DAILY 04/08/20 Ibrutinib [Imbruvica] 420 mg PO DAILY 04/08/20 Losartan Potassium 100 mg PO DAILY 04/08/20 Melatonin 20 mg PO QHS 04/08/20 Metformin HCl 500 mg PO BID 04/08/20 Albuterol Inhaler [Ventolin Hfa] 1 puff INHALATION Q4H PRN PRN #1 inhaler 04/12/20 Furosemide [Lasix] 20 mg PO DAILY 5 Days #5 tab 04/12/20 Guaifenesin [Mucinex] 1,200 mg PO BID tab 04/12/20 Nicotine [Nicoderm Cq] 21 mg TRANSDERM. DAILY #14 patch 04/12/20 levoFLOXacin tablet [Levaquin tablet] 750 mg PO DAILY@0600 #4 tab 04/12/20 predniSONE tablet See Taper PO DAILY@0800 #26 tab 04/12/20 Following Prescriptions Were Given to Patient: Furosemide [Lasix] 20 mg PO DAILY 5 Days #5 tab Transmission Status: Received by [facility]30 levoFLOXacin tablet [Levaquin tablet] 750 mg PO DAILY@0600 #4 tab Transmission Status: Received by [facility] Nicotine [Nicoderm Cq] 21 mg TRANSDERM. DAILY #14 patch Transmission Status: Received by [facility]30 predniSONE tablet See Taper PO DAILY@0800 #26 tab Transmission Status: Received by [facility] Albuterol Inhaler [Ventolin Hfa] 1 puff INHALATION Q4H PRN PRN #1 inhaler PRN Reason: Sob &/Or Wheezing Transmission Status: Received by [facility] Primary Care Physician: Hector Vega MD [Primary Care Provider] - Please follow up with your Primary Care Physician in: 1-2 weeks Please Follow Up With: Corrie Torres NP-C When: 2 weeks Please Follow Up With: Tess Rincon NP-C Disposition: Home Minutes spent on discharge:: 35 Patient Condition:: Stable Medical Necessity - Tobacco Use Smoking Status: Current every day smoker Tobacco Use: Cigarettes Meaningful Use Info Meaningful Use Diagnoses (Choose all that apply): None applicable <Brown Fenton E - Last Filed: 04/12/20 13:13> Discharge Date and Diagnosis - Primary Discharge Diagnosis Acute Problems: Active Problems Acute respiratory failure with hypoxia (Acute) - Secondary Discharge Diagnosis Chronic Problems: Chronic Problems Type 2 diabetes mellitus (Chronic) COPD (chronic obstructive pulmonary disease) (Chronic) Hypertension (Chronic) Depression (Chronic) Hyperlipemia (Chronic) BPH (benign prostatic hypertrophy) (Chronic) Hospital Course and Treatment Summary of Care Provided: Hospitalist note: Discharge summary above reviewed and I concur with above discharge treatment plan. Patient presented to the emergency room because of worsening shortness of breath with cough and difficulty expectorating the sputum. He was found to have acute COPD exacerbation which was triggered by rhinovirus and complicated by acute hypoxic respiratory failure.. Chest x-ray showed no acute infiltrate or consolidation, showed findings of hyperinflation consistent with COPD. CTA chest done and showed no PE or dissection, showed left lower lobe peripheral lung nodule, emphysematous changes, there was no evidence of infiltrate or consolidation. Patient was treated with IV steroids and bronchodilators. COVID-19 PCR was negative. 2D echocardiogram revealed ejection fraction of 65%, no tested dysfunction and inferior vena cava was dilated. Patient received 1 dose of IV Lasix. respiratory panel for viruses were positive for rhinovirus. Blood culture showed no growth in 48 hours. Sputum culture revealed Streptococcus pneumoniae. There was no evidence of pneumonia on the chest x-ray or CTA chest. Patient was started on Levaquin. With above-mentioned treatment, patient symptoms improved very slowly. Initially, patient required up to 6 L of oxygen and with treatment, he was able to come down to 4 L of oxygen. Pulmonology consulted and agreed with the above mentioned treatment. Pulmonary recommended to repeat CT scan chest in 3 months for the left lower lobe pulmonary nodule. Patient discharged home in a stable medical condition, discharged on oxygen at 4 L/min, discharged on tapering prednisone as well as Levaquin, started on bronchodilators, he was given Lasix 20 mg p.o. daily for 5 days, plan to follow-up with pulmonology in 2 weeks, recommended follow-up with PCP in 1 to 2 weeks. - Physical Exam General: Alert, Oriented x3, Cooperative, minimally short of breath. HEENT: Atraumatic, PERRLA, EOMI. Neck: Supple, No JVD, Negative Carotid Bruits, Trachea Midline, Thyroid Normal. Lungs: Decreased breath sounds bilateral, no wheezes, no rhonchi, no rales. Cardiovascular: Regular rate, Regular Rhythm, Normal S1, Normal S2, PMI Normal. Abdomen: Bowel Sounds Present, Soft, Non Tender, Non-Distended, No Hepato-splenomegaly. Extremities: No clubbing, No cyanosis, No edema Skin: No rashes, No breakdown Neurological: Cranial nerves are intact, neuro grossly intact. This note was generated with [employer] dictation software. It may contain incorrect words, spelling, and punctuation that were not noted in checking the note before signing. - Physical Exam Vitals/I&O's: Vital Signs Temp Pulse Resp BP Pulse Ox 98.2 F 84 16 164/81 H 95 04/12/20 10:04 04/12/20 10:58 04/12/20 10:58 04/12/20 10:04 04/12/20 10:04 Oxygen Flow Rate (L/min) [ 4 AMBULATION with Oxygen] Oxygen Flow Rate (L/min) 4 Oxygen Delivery Method Nasal Cannula Weight: 200 lb 6.403 oz Body Mass Index (BMI) 29.5 Intake and Output for Last 24 Hours 04/10/20 04/11/20 04/12/20 23:59 23:59 23:59 Intake Total 1520 / 1520 1130 / 1130 500 / 500 Output Total 3000 / 3000 2775 / 2775 1150 / 1150 Balance -1480 / -1480 -1645 / -1645 -650 / -650 Microbiology Past 72 Hours 04/08/20 16:15 Sputum, Expectorated/Coughed Gram Stain - Final 04/08/20 16:15 Sputum, Expectorated/Coughed Respiratory Culture - Preliminary Streptococcus pneumoniae 04/08/20 11:40 Urine, Clean Catch Urine Culture - Final Mixed Gram Positive Organisms 04/08/20 11:40 Blood Culture (Wb) - Left Hand Blood Culture - Preliminary No growth in 48 hours. 04/08/20 10:27 Blood Culture (Wb) - Anticubital Left Blood Culture - Preliminary No growth in 48 hours. Laboratory Results 04/11/20 15:48: POC Glucose 187 H 04/11/20 22:02: POC Glucose 273 H 04/12/20 06:45: POC Glucose 144 H 04/12/20 07:05: Sodium 137, Potassium 4.2, Chloride 101, Carbon Dioxide 36.0 H, Anion Gap 0 L, BUN 18, Creatinine 0.66 L, Estim Creat Clear Calc 120.51, Est GFR (MDRD) Af Amer 159, Est GFR (MDRD) Non-Af 131, BUN/Creatinine Ratio 27.3 H, Glucose 161 H, Calcium 8.9 04/12/20 11:32: POC Glucose 173 H Current Medications Acetaminophen (Tylenol) 650 mg PO Q6H PRN PRN PRN Reason: Pain Score 1-10/Temp > 100.7 F Al Hydroxide/Mg Hydroxide (Mylanta Ii) 30 ml PO Q6H PRN PRN PRN Reason: Gastric Burning Albuterol Sulfate (Ventolin Aerosols) 2.5 mg INHALATION Q2H PRN PRN PRN Reason: SOB/Wheezing Albuterol/Ipratropium (Duoneb) 3 ml INHALATION Q4H.RT [facility] Last Admin: 04/12/20 10:58 Dose: 3 ml Documented by: Amlodipine Besylate (Norvasc) 10 mg PO DAILY [facility] Last Admin: 04/12/20 10:01 Dose: 10 mg Documented by: [facility] ([facility]) [facility] Last Admin: 04/12/20 10:00 Dose: 81 mg Documented by: Atorvastatin Calcium (Lipitor) 10 mg PO QHS [facility] Last Admin: 04/11/20 22:04 Dose: 10 mg Documented by: Docusate Sodium (Colace) 100 mg PO BID PRN PRN PRN Reason: Constipation Enoxaparin Sodium (Lovenox) 40 mg SC DAILY [facility] Last Admin: 04/12/20 10:00 Dose: 40 mg Documented by: Fluoxetine HCl (Prozac) 40 mg PO DAILY [facility] Last Admin: 04/12/20 10:01 Dose: 40 mg Documented by: Guaifenesin (Mucinex) 1,200 mg PO BID [facility] Last Admin: 04/12/20 10:00 Dose: 1,200 mg Documented by: Hydralazine HCl (Apresoline Iv) 10 mg IV Q6H PRN PRN PRN Reason: BLOOD PRESSURE Insulin Human Lispro (Humalog Kwikpen (Bkc)) 0 unit SC [facility]; Protocol Last Admin: 04/12/20 11:34 Dose: 1 units Documented by: Levofloxacin (Levaquin Tablet) 750 mg PO DAILY@0600 [facility] Stop: 04/17/20 12:01 Last Admin: 04/12/20 11:38 Dose: 750 mg Documented by: Losartan Potassium (Cozaar) 100 mg PO DAILY [facility] Last Admin: 04/12/20 10:00 Dose: 100 mg Documented by: Melatonin (Melatonin) 15 mg PO QHS PRN PRN PRN Reason: INSOMNIA Last Admin: 04/11/20 22:05 Dose: 15 mg Documented by: Nicotine (Nicoderm Cq (Pbkc)) 21 mg TRANSDERM. DAILY [facility] Last Admin: 04/12/20 10:00 Dose: 21 mg Documented by: Prednisone () 40 mg PO DAILY@0800 [facility] Last Admin: 04/12/20 11:42 Dose: 40 mg Documented by: Sodium Chloride () 10 - 40 ml IV UD PRN PRN Reason: SALINE FLUSH Last Admin: 04/12/20 05:34 Dose: 10 ml Documented by: Throat Lozenges (Cepacol Sore Throat Lozenge) 1 lozenge MUCOUS MEM Q2H PRN PRN PRN Reason: SORE THROAT Disposition: Home Minutes spent on discharge:: 32 Patient Condition:: Stable Meaningful Use Info Meaningful Use Diagnoses (Choose all that apply): None applicable Inpatient E&M: 78377 Disch Hosp
--- NOTE | 2020-04-14 11:20 | CASEMGMT ---
CECILIA CM Discharge Follow-up Phone Call: KRANTHI: 12 Strata: 3 Call Date: 04/14/2020 Discharge Date: 04/12/2020 Time of Call: 1120 Admitting Diagnosis: Acute respiratory failure 2/2 COPD exac, pneumonia, rhinovirus Discharge follow-up call attempted. Pt's identifying voicemail received and message left requesting a return call. Brent Culver RN
--- NOTE | 2020-04-15 12:06 | CASEMGMT ---
CECILIA MADDEN Discharge Follow-up Call: Pt's returned the call placed to patient yesterday and left voicemail requesting a call back. This CECILIA MADDEN called pt's phone number which he answered. Pt states he continues to feel short of breath but states it is much better than before. Pt states he does have his O2 at home from [facility] and has been wearing it every night and occasionally thoughout the day. Pt reports his pulse oximetry has been reading anywhere from 85-90%. Pt explained that the 85% was obtained while ambulating and off his oxygen. Educated patient on need to wear O2 while ambulating but pt states he will wear it when he wants to and that is just the way I am. Pt states he understand that have a low oxygen reading may damage my other organs in my body. Pt feels his breathing is pretty good and does not feel in distress even when his PO is low. Pt states he did obtain his medications and is taking them as prescribed. Pt his breathing feeling tight at times. States he has not been using the Albuterol inhaler. Instructed pt that this may decrease the tightness he feels which pt states he will then try it some time. Pt states he is also taking the mucinex and using the flutter valve. Pt denied any further questions regarding his medications. Pt aware of follow-up appointments but was not clear as to if he plans to make and/or keep them. States his follows these and if it wasn't for her he wouldn't go to any of them. Instructed pt that following-up with Corrie Torres NP Pulmonary and with his PCP will facilitate his breathing continuing to improve. Pt denied any further needs or questions. Brent Culver RN CM
== END 2020-04-12 13:48 | disposition home or self-care (01) | DRG 193 ==
LOC: ED 12:51 → PCU 14:08
PROVIDERS: Physician Assistant; Admitting Provider Internal Medicine; Emergency Provider Emergency Medicine; PCP Family Medicine; Visit Provider Hospitalist
DX: J13 Pneumonia due to Streptococcus pneumoniae (principal); J96.01 Acute respiratory failure with hypoxia; J47.0 Bronchiectasis with acute lower respiratory infection; J20.6 Acute bronchitis due to rhinovirus; E11.9 Type 2 diabetes mellitus without complications; I10 Essential (primary) hypertension; E78.5 Hyperlipidemia, unspecified; N40.0 Benign prostatic hyperplasia without lower urinary tract symptoms; G47.33 Obstructive sleep apnea (adult) (pediatric); G47.00 Insomnia, unspecified; F33.41 Major depressive disorder, recurrent, in partial remission; F17.210 Nicotine dependence, cigarettes, uncomplicated; E66.3 Overweight; Z68.29 Body mass index [BMI] 29.0-29.9, adult; Z79.84 Long term (current) use of oral hypoglycemic drugs; Z79.82 Long term (current) use of aspirin; Z79.899 Other long term (current) drug therapy; Z85.72 Personal history of non-Hodgkin lymphomas
CPT/HCPCS: 36415; 71045; 71275; 80048; 80053; 81001; 82962; 83605; 83735; 84100; 84484; 85025; 85610; 85730; 87040; 87070; 87077; 87086; 87088; 87186; 87205; 87449; 87633; 87635; 93005; 93306; 94640; 94667; 94668; 99251; 99285; 99406; J7030; Q9957; Q9967; 90686; A4216; G0463; J0696; J1940; U0003

== ENCOUNTER 2020-06-03 09:44 | Inpatient (IN) | payer BC, SELFPAY ==
[2020-04-28 11:11] VITALS: BMI 29.2
[2020-06-03] VITALS (13 sets, daily range): BP systolic 126–150; BP diastolic 50–84; PULSE 86–116; RESP 17–22; TEMP 36.3–38.3; O2SAT 90–96; BMI 29.9; BMI 29.2
--- NOTE | 2020-06-03 | SPU_PTH ---
PATIENT: TRINA FAIR LOC: [facility] U#:[id number] AGE/SX: 60/M ROOM: [facility] RE06/03/[address]: Dr. Pamela Faust MD : 1960 BED: 1 DIS: 06/07/2020 SPEC #: [id number] RECD: 06/04/20 12:30 STATUS: GABO RELeland #: [id number] PHU: 06/03/20 00:[address]: Pamela Faust DEPT: CYTOLOGY RECD BY: Surya Huston ENTERED: 06/06/20 08:13 SP TYPE: Sputum Cy OTHR DR: MD Dr. Hector Avelar MD Dr. Nicholas F Kotsonis, MD Dr. Robert Leininger, MD Tissues: Sputum Procedures: Pap Stain (control) Special Stain Group II Special Stain Group I AFB Stain (control) Cytospin Fluid HEADER OPERATION: Not noted PRE-OP DIAGNOSIS: Sepsis, pneumonia TISSUE SUBMITTED: Sputum #1 for cytology DIAGNOSIS CYTOLOGY Sputum #1 for cytology (cytospin and smears): Negative for malignant cells. Special stain for acid fast bacilli is negative for organisms; matched control is appropriate. SJ:nirmal 06/06/20 COMMENT The results are reported to Dr. Jamison's nurse, Cherry on 06/06/20. CYTOLOGY STUDY Slides are reviewed. CYTOLOGY GROSS Received is <1 ml of red mucoid fluid labeled with the patient's name and and designated per the requisition as sputum #1. Submitted for cytology preparation. / nirmal 06/06/20 TC:5 CPT: 01190, 79691
--- NOTE | 2020-06-03 10:22 | RAD_ITS ---
EXAM DESCRIPTION: PORTABLE AP CHEST CLINICAL HISTORY: 60 years Male, Cough, chills, fever since Tuesday. Cough, chills, fever since Tuesday. COMPARISON: Previous portable chest obtained on 04/08/2020 FINDINGS: The thorax is intact. The heart and mediastinum appear to be within normal limits. The lungs show subsegmental atelectasis in both lung bases more pronounced on the right with patchy alveolar infiltrate seen in both lung bases which was not seen on the previous chest x-ray. RAD/Chest 1 View (Portable) IMPRESSION: Bibasilar subsegmental atelectasis is identified with early pneumonic infiltrates noted in both lung bases. Electronically Signed: Fabian Villeda, at 11:34 EST Tel , Service support ,
--- NOTE | 2020-06-03 10:26 | ED.DCSUM_ITS ---
- ER Visit Summary Date of Service: 06/03/20 Chief Complaint: Fever History of Present Illness: The patient is a 60 M who presents with a fever that has been waxing and waning over the past 5 days. Patient states he was tested for Covid 3 days ago and was negative. Patient states that today he started cou ghing up some blood. Patient states his breathing improves with cool air and with oxygen. Patient states he is on home oxygen but has had to increase it recently. Patient states his temperature at home was up to 103.4. Patient also admits to chills and rhinorrhea. Physical Examination: Vital signs are stable except for mild tachycardia of 107. Patient is afebrile. Patient is in no acute distress. Oral mucosa is pink and moist. Neck is supple. Trachea is midline. There is no JVD. Heart was regular and tachycardic. Lungs show diffuse rhonchi. There is good respiratory effort. Abdomen is soft. Bowel sounds are normal. There is no tenderness. Cranial nerves II through XII are intact. There are no focal motor or sensory deficits. Remedies are intact. There is no calf tenderness or edema. Test Results: CBC shows a leukocytosis of 17.1. Hemoglobin was 12.0 hematocrit was 37.9. Platelets were 139. Comprehensive metabolic profile was obtained and was essentially within normal limits. Lactate was normal at 1.6. Portable 1 view chest x-ray was obtained. On my interpretation, lung sands show early infiltrates in the bilateral lower lobes. There is normal cardiac silhouette. Bony thorax is normal. There is no acute process noted. Radiologist also interpreted the x-ray and agrees. Blood cultures were obtained and are pending. Emergency Department Course and Treatment: Patient was advised of his findings. Patient was given Rocephin and Zithromax here. Patient also complained of a mild headache. Patient was given Tylenol for this. Case was discussed with the hospitalist. He will admit the patient to his service. Patient understood and was agreeable with the plan. All questions were answered. Disposition: Admit to hospital Impression: 1. Pneumonia 2. Sepsis This note was generated with [employer] software. It may contain incorrect words, spelling, and punctuation that were not noted in review of the chart prior to signing ED Disposition - Plan for ED Patient: Disposition: Acute Care Hospital [facility] Diagnosis: Pneumonia, Sepsis Referrals: Hector Vega MD [Primary Care Provider] -
[2020-06-03 11:00] LABS: Absolute Lymphocyte Count 0.64 X10^3/uL (0.83-4.51); Absolute Neutrophil Count 14.9 X10^3/uL (2.0-7.7); Basophil# 0.05 X10^3/uL; Basophil% 0.3 % (0-1); Eosinophil# 0.09 X10^3/uL; Eosinophils% 0.5 % (0-5); Hematocrit 37.9 % (40-54); Lymphocyte # 0.64 X10^3/ul (4.0); Lymphocyte % 3.7 % (19-41); Mean Corp Hgb Conc 31.7 g/dL (32-36); Mean Corpuscular Hgb 32.1 pg (27.0-32.0); Mean Corpuscular Volume 101.3 fL (80-94); Mean Platelet Vol. 10.9 fl (6.2-12.0); Monocyte# 1.17 X10^3/uL; Monocyte% 6.9 % (0-10); NRBC Flagged by Analyzer 0 % (0-5); Neutrophil # 14.91 X10^3/uL (2.7-7.7); Neutrophil % 87.4 % (47-70); Platelet Count 139 K/mm3 (150-450); RBC Distribution Width CV 14.3 % (11.6-14.6); RBC Distribution Width SD 53.6 fl (35.1-43.9); Red Blood Count 3.74 M/mm3 (4.6-6.2); White Blood Count 17.1 K/mm3 (4.4-11.0)
[2020-06-03 11:17] LABS: ALB/GLOB Ratio 0.5 RATIO (0.9-2.4); AST(SGOT) 15 U/L (15-37); Alanine Aminotransfer ALT/SGPT 17 U/L (16-61); Albumin, Serum 2.4 g/dL (3.2-5.0); Alkaline Phosphatase 105 U/L (45-117); Anion Gap 4 (5-15); BUN 12 mg/dL (7-18); BUN/Creat Ratio 18.3 RATIO (10-20); Calcium,Total 9.3 mg/dL (8.5-10.1); Chloride 100 mmol/L (98-107); Creatinine, Serum 0.65 mg/dL (0.70-1.30); EST Glomerular Filtration Rate 133 mL/min (>60); Est Glom Filt Rate - Afr Amer 160 mL/min (>60); Estimated Creatinine Clearance 118.38 ml/min; Globulin 4.4 g/dL (2.2-4.2); Glucose 137 mg/dL (74-106); Potassium 3.8 mmol/L (3.5-5.1); Protein, Total 6.8 g/dL (6.4-8.2); Sodium Level 138 mmol/L (136-145)
[2020-06-03 11:22] LABS: Lactic Acid 1.6 mmol/L (0.4-1.9)
[2020-06-03] MEDS: Acetaminophen 500 MG Tablet 1000 MG PO (13:26)
--- NOTE | 2020-06-03 14:27 | NURSING ---
DR GARCIA FOR DR SHAY
--- NOTE | 2020-06-03 14:56 | NURSING ---
PCU SEPSIS, PNEUMONIA KOTSONIS
[2020-06-03] MEDS: Ceftriaxone 1 GM/50 ML BAG IV (15:35)
--- NOTE | 2020-06-03 16:17 | HP.PCM_ITS ---
History of Present Illness Date of Admission: 06/03/20 Chief Complaint: Fever The patient is a 60 year old M with a PMH as below who presents to the hospital with fever, leukocytosis tachycardia. He had a chest x-ray in the ER which demonstrated bilateral basilar infiltrates and atelectasis. He states that s ymptoms started 5 days ago and 3 days ago he had a negative Covid test and today in the ER he had a negative Covid test. He is on 4-1/2 L nasal cannula at baseline and was currently requiring 5 L nasal cannula. We will brought him in today, was that he started coughing and he coughed up a little blood less than the size of a quarter. In the ER, creatinine was 2.65 with a normal lactic acid. He was started on Rocephin and azithromycin as well as IV fluids. He denies any Covid contacts within the last 3 to 4 weeks. He states that 5 or 6 days ago he went to get apart from at a hardware store in [place] and was wearing a mask the whole time. Past Medical History Past Medical History (Chronic Problems): Chronic Problems (Last Updated 04/28/20 @ 12:43 by Chanelle White) Type 2 diabetes mellitus (Chronic) Hypertension (Chronic) Depression (Chronic) Hyperlipemia (Chronic) BPH (benign prostatic hypertrophy) (Chronic) Medical History: Medical History (Last Updated 04/28/20 @ 12:43 by Chanelle White) Acute respiratory failure with hypoxia J96.01 COPD exacerbation Depression Hyperlipidemia Hypertension COPD (chronic obstructive pulmonary disease) J44.9 Allergies hydrochlorothiazide Allergy (Verified 06/03/20 09:46) Unknown lisinopril Adverse Reaction (Mild, Verified 06/03/20 09:46) cough Home Medications: Ambulatory Orders Medication Instructions Recorded Aspirin E.C. [Ecotrin] 81 mg PO DAILY 01/07/14 Amlodipine [Norvasc] 10 mg PO DAILY 04/08/20 Atorvastatin Calcium [Lipitor] 20 mg PO QHS 04/08/20 Calcium Carbonate [Calcium] 1,200 mg PO DAILY 04/08/20 Cholecalciferol (Vitamin D3) 2,000 unit PO DAILY 04/08/20 [Vitamin D3] Losartan Potassium 100 mg PO DAILY 04/08/20 Melatonin 15 - 20 mg PO QHS 04/08/20 Metformin HCl 500 mg PO BID 04/08/20 Albuterol Inhaler [Ventolin Hfa] 1 puff INHALATION Q4H PRN PRN #1 04/12/20 inhaler nicotine 14 mg/24 hr daily 1 patch TRANSDERMAL DAILY ea 04/28/20 transdermal patch Acetaminophen [Tylenol Extra 1,000 mg PO Q4H PRN PRN 06/03/20 Strength] Fluoxetine HCl 40 mg PO DAILY 06/03/20 Gabapentin [Neurontin] 300 mg PO TID 06/03/20 Ibrutinib [Imbruvica] 420 mg PO DAILY 06/03/20 Surgical History: Surgical History (Last Updated 04/28/20 @ 12:46 by Chanelle White) No pertinent past surgical history Z78.9 Surgical History: noncontributory, herniorrhaphy, - - History foot surgery Psychiatric History: Depression Smoking Status: Former smoker Tobacco Use: Cigarettes Alcohol: None Drugs: None - *Family History Maternal History Items: Cancer Paternal History Items: COPD Sibling History Items: No pertinent history Review of Systems Constitutional: Reports: Fever. Denies: Chills, Weight Change HEENT: Denies: Head Aches, Sinus Congestion, Sinus Drainage Cardiovascular: Denies: Chest Pain, Palpitations Respiratory: Reports: Cough, Hemoptysis. Denies: Shortness of breath at rest, Sputum production Gastrointestinal: Denies: Abdominal Pain, Nausea, Vomiting Genitourinary: Denies: Dysuria Musculoskeletal: Denies: Joint Pain, Joint Tenderness Skin: Denies: Rash, Wounds Neurological: Denies: Numbness, Tingling, Focal weakness Psychiatric: Denies: Anxiety, Depression Hematologic/ Lymphatic: Denies: Easy Bruising, Easy Bleeding VTE Information - Inpt Only VTE Present on Admission: No Patient Problems: Active and Suspected Problems (Last Updated 04/28/20 @ 12:43 by Chanelle White) Pneumonia (Acute) Sepsis (Acute) - Physical Exam Vitals/I&O's: Vital Signs Temp Pulse Resp BP Pulse Ox 99.8 F H 100 19 H 133/77 H 93 06/03/20 15:37 06/03/20 15:37 06/03/20 15:37 06/03/20 15:37 06/03/20 15:37 Oxygen Flow Rate (L/min) 5 Oxygen Delivery Method Room Air Weight: 195 lb 8.8 oz Body Mass Index (BMI) 29.2 General: Alert, Oriented x3, Cooperative, No apparent distress HEENT: Atraumatic, PERRLA, EOMI, Normocephalic Oral: Moist Mucosa Neck: Supple, No JVD Lungs: Normal air movement, No rhonchi, No wheeze, No rales, Diminished Cardiovascular: Regular Rhythm, Normal S1, Normal S2, No murmurs, Tachycardic Abdomen: Soft, Non Tender, Non-Distended, No Hepato-splenomegaly Extremities: No edema, Capillary Refill Less than 3 Seconds Skin: No rashes, No breakdown Neurological: Neuro grossly intact, Sensory exam intact to light touch and pain Psych/Mental Status: Normal Affect, Appropriate Laboratory Results 06/03/20 10:34: COVID-19 (JESSIE) Not Detected 06/03/20 10:40: WBC 17.1 H, RBC 3.74 L, Hgb 12.0 L, Hct 37.9 L, MCV 101.3 H, MCH 32.1 H, MCHC 31.7 L, RDW Std Deviation 53.6 H, RDW Coeff of Renee 14.3, Plt Count 139 L, MPV 10.9, Immature Gran % (Auto) 1.200 H, Neut % (Auto) 87.4 H, Lymph % (Auto) 3.7 L, [place] % (Auto) 6.9, Eos % (Auto) 0.5, Baso % (Auto) 0.3, Absolute Neuts (auto) 14.9 H, Absolute Lymphs (auto) 0.64 L, Nucleated RBC % 0 06/03/20 10:40: Sodium 138, Potassium 3.8, Chloride 100, Carbon Dioxide 34.0 H, Anion Gap 4 L, BUN 12, Creatinine 0.65 L, Estim Creat Clear Calc 118.38, Est GFR (MDRD) Af Amer 160, Est GFR (MDRD) Non-Af 133, BUN/Creatinine Ratio 18.3, Glucose 137 H, Calcium 9.3, Total Bilirubin 0.90, AST 15, ALT 17, Alkaline Phosphatase 105, Total Protein 6.8, Albumin 2.4 L, Globulin 4.4 H, Albumin/Globulin Ratio 0.5 L 06/03/20 10:40: Lactic Acid 1.6 Current Medications Acetaminophen (Acetaminophen 325 Mg Tablet) 650 mg PO Q6H PRN PRN PRN Reason: Pain Score 1-10/Temp > 100.7 F Azithromycin (Azithromycin 250 Mg Tablet) 500 mg PO Q24 [facility] Stop: 06/05/20 10:01 Enoxaparin Sodium (Enoxaparin 40 Mg/0.4 Ml Syringe) 40 mg SC DAILY [facility] Sodium Chloride () 1,000 mls @ 100 mls/hr IV .Q10H TAMMY Ceftriaxone Sodium 2 gm/ (Sodium Chloride) 50 mls @ 100 mls/hr IV Q24 [facility] Stop: 06/07/20 10:29 Melatonin (Melatonin 3 Mg Tablet) 3 mg PO QHS PRN PRN PRN Reason: INSOMNIA Ondansetron HCl (Ondansetron 4 Mg/2 Ml Vial) 4 mg IV Q8H PRN PRN PRN Reason: NAUSEA/VOMITING Sodium Chloride (0.9% Saline Lock 10 Ml Syringe) 10 - 40 ml IV UD PRN PRN Reason: SALINE FLUSH Assessment/Plan All Active Problems (Last Updated 04/28/20 @ 12:43 by Chanelle White) Pneumonia (Acute) Sepsis (Acute) Lung nodule (Acute) COPD exacerbation (Acute) Acute respiratory failure with hypoxia (Acute) 1. Sepsis secondary to community-acquired pneumonia/COPD not in exace rbation/tobacco abuse -He has had 2 Covid PCR tests in the last 5 days which were negative -Continue with Rocephin and azithromycin -We will obtain a respiratory viral panel as well as Legionella and strep urine antigens -He used to be on steroids for COPD but was weaned off and started on ibrutinib -States he does not need to use inhalers all that frequently -Discussed cessation of tobacco products, continue with his nicotine patch 2. HTN/HLD -Blood pressure is stable -Renal function is unremarkable therefore can continue with Norvasc, Lipitor, losartan -Continue with aspirin 3. DM 2 -We will hold his home metformin and place him on sliding scale insulin -Accu-Cheks AC at bedtime 4. Anxiety/depression -Stable -Continue with Prozac DVT: Lovenox Inpatient E&M: 20003 Init Hosp L3
[2020-06-03] MEDS: 0.9% Normal Saline 1,000 ML 100 ML IV (16:33)
[2020-06-03 17:00] LABS: Bedside Glucose 181 mg/dL (70-110)
[2020-06-03] MEDS: Acetaminophen 325 MG Tablet 650 MG PO (19:33)
[2020-06-03] MEDS: Gabapentin 300 MG Capsule PO (21:04)
[2020-06-03] MEDS: Atorvastatin Calcium 20 MG Tablet PO (21:04)
[2020-06-03] MEDS: MELATONIN 10 MG TABLET 15 MG PO (21:08)
[2020-06-03] MEDS: 0.9% Saline Lock 10 ML Syringe IV (21:10)
[2020-06-03 22:15] LABS: Bedside Glucose 102 mg/dL (70-110)
[2020-06-04] VITALS (25 sets, daily range): BP systolic 103–141; BP diastolic 43–120; PULSE 89–142; RESP 12–22; TEMP 36.4–37.5; O2SAT 88–97
[2020-06-04] MEDS: 0.9% Normal Saline 1,000 ML 100 ML IV ×2 (01:48→12:17)
[2020-06-04 05:33] LABS: Absolute Lymphocyte Count 0.77 X10^3/uL (0.83-4.51); Absolute Neutrophil Count 15.5 X10^3/uL (2.0-7.7); Basophil# 0.05 X10^3/uL; Basophil% 0.3 % (0-1); Eosinophil# 0.06 X10^3/uL; Eosinophils% 0.3 % (0-5); Hematocrit 35.7 % (40-54); Hemoglobin 10.9 g/dL (13.0-16.5); Lymphocyte # 0.77 X10^3/ul (4.0); Lymphocyte % 4.2 % (19-41); Mean Corp Hgb Conc 30.5 g/dL (32-36); Mean Corpuscular Hgb 31.8 pg (27.0-32.0); Mean Corpuscular Volume 104.1 fL (80-94); Mean Platelet Vol. 10.9 fl (6.2-12.0); Monocyte# 1.43 X10^3/uL; Monocyte% 7.9 % (0-10); NRBC Flagged by Analyzer 0 % (0-5); Neutrophil # 15.53 X10^3/uL (2.7-7.7); Neutrophil % 85.4 % (47-70); Platelet Count 145 K/mm3 (150-450); RBC Distribution Width CV 14.3 % (11.6-14.6); RBC Distribution Width SD 54.6 fl (35.1-43.9); Red Blood Count 3.43 M/mm3 (4.6-6.2); White Blood Count 18.2 K/mm3 (4.4-11.0)
[2020-06-04 05:52] LABS: Anion Gap 3 (5-15); BUN 10 mg/dL (7-18); BUN/Creat Ratio 19.7 RATIO (10-20); Calcium,Total 8.6 mg/dL (8.5-10.1); Chloride 101 mmol/L (98-107); Creatinine, Serum 0.51 mg/dL (0.70-1.30); EST Glomerular Filtration Rate 177 mL/min (>60); Est Glom Filt Rate - Afr Amer 215 mL/min (>60); Estimated Creatinine Clearance 150.88 ml/min; Glucose 121 mg/dL (74-106); Potassium 3.6 mmol/L (3.5-5.1); Sodium Level 137 mmol/L (136-145)
[2020-06-04] MEDS: Acetaminophen 325 MG Tablet 650 MG PO ×2 (06:26→22:15)
[2020-06-04] MEDS: Insulin Lispro 100 UNIT/ML INSULN.PEN SC ×3 (06:32→22:21)
[2020-06-04 07:05] LABS: Bedside Glucose 157 mg/dL (70-110)
[2020-06-04] MEDS: Gabapentin 300 MG Capsule PO ×3 (08:21→16:53)
[2020-06-04] MEDS: Aspirin E.C. 81 MG Tablet PO (08:22)
--- NOTE | 2020-06-04 09:52 | PN_ITS ---
Patient Problems: Active and Suspected Problems (Last Updated 04/28/20 @ 12:43 by Chanelle White) Pneumonia (Acute) Sepsis (Acute) COPD exacerbation (Acute) Reason for Visit: Follow-up on pneumonia/hypoxia Subjective: Patient was seen and examined. He complains of coughing up bright red blood. He showed me half a cup full of bright red hemoptysis. He stated that he is feeling much better. Denied fever or chills at time of being seen. Denied any night sweats weight loss. Denied any contact with persons with TB. Objective: Physical exam: General: Alert, Oriented x3, Cooperative, No apparent distress, on 6 L of oxygen HEENT: Atraumatic, PERRLA, EOMI, Normocephalic Oral: Moist Mucosa Neck: Supple, No JVD Lungs: Normal air movement, No rhonchi, No wheeze, No rales, Diminished Cardiovascular: Regular Rhythm, Normal S1, Normal S2, No murmurs, Tachycardic Abdomen: Soft, Non Tender, Non-Distended, No Hepato-splenomegaly Extremities: No edema, Capillary Refill Less than 3 Seconds Skin: No rashes, No breakdown Neurological: Neuro grossly intact, Sensory exam intact to light touch and pain Psych/Mental Status: Normal Affect, Appropriate Vitals/I&O's: Vital Signs Temp Pulse Resp BP Pulse Ox 97.5 F L 90 20 H 120/59 L 97 06/04/20 07:50 06/04/20 07:50 06/04/20 07:50 06/04/20 07:50 06/04/20 07:50 Oxygen Flow Rate (L/min) 6 Oxygen Delivery Method Nasal Cannula Weight: 88.7 kg Body Mass Index (BMI) 29.2 Intake and Output for Last 24 Hours 06/02/20 06/03/20 06/04/20 23:59 23:59 23:59 Intake Total 755 / 755 925 / 925 Output Total 550 / 550 700 / 700 Balance 205 / 205 225 / 225 Microbiology Past 72 Hours 06/03/20 10:40 Blood Culture (Wb) - Anticubital Left Blood Culture - Preliminary 06/03/20 10:45 Blood Culture (Wb) - Anticubital Right Bacteria Detection (PCR) - Final Strep pneumoniae 06/03/20 10:45 Blood Culture (Wb) - Anticubital Right Blood Culture - Pr eliminary 06/03/20 18:50 Urine, Clean Catch Legionella Antigen - Final 06/03/20 18:50 Urine, Clean Catch Streptococcus pneumoniae Antigen (M - Final 06/03/20 17:00 Mucosa - Nasopharyngeal Respiratory Panel (PCR) - Final Laboratory Results 06/03/20 10:34: COVID-19 (JESSIE) Not Detected 06/03/20 10:40: WBC 17.1 H, RBC 3.74 L, Hgb 12.0 L, Hct 37.9 L, MCV 101.3 H, MCH 32.1 H, MCHC 31.7 L, RDW Std Deviation 53.6 H, RDW Coeff of Renee 14.3, Plt Count 139 L, MPV 10.9, Immature Gran % (Auto) 1.200 H, Neut % (Auto) 87.4 H, Lymph % (Auto) 3.7 L, [place] % (Auto) 6.9, Eos % (Auto) 0.5, Baso % (Auto) 0.3, Absolute Neuts (auto) 14.9 H, Absolute Lymphs (auto) 0.64 L, Nucleated RBC % 0 06/03/20 10:40: Sodium 138, Potassium 3.8, Chloride 100, Carbon Dioxide 34.0 H, Anion Gap 4 L, BUN 12, Creatinine 0.65 L, Estim Creat Clear Calc 118.38, Est GFR (MDRD) Af Amer 160, Est GFR (MDRD) Non-Af 133, BUN/Creatinine Ratio 18.3, Glucose 137 H, Calcium 9.3, Total Bilirubin 0.90, AST 15, ALT 17, Alkaline Phosphatase 105, Total Protein 6.8, Albumin 2.4 L, Globulin 4.4 H, Albumin/Globulin Ratio 0.5 L 06/03/20 10:40: Lactic Acid 1.6 06/03/20 16:55: POC Glucose 181 H 06/03/20 21:12: POC Glucose 102 06/04/20 04:56: WBC 18.2 H, RBC 3.43 L, Hgb 10.9 L, Hct 35.7 L, MCV 104.1 H, MCH 31.8, MCHC 30.5 L, RDW Std Deviation 54.6 H, RDW Coeff of Renee 14.3, Plt Count 145 L, MPV 10.9, Immature Gran % (Auto) 1.900 H, Neut % (Auto) 85.4 H, Lymph % (Auto) 4.2 L, [place] % (Auto) 7.9, Eos % (Auto) 0.3, Baso % (Auto) 0.3, Absolute Neuts (auto) 15.5 H, Absolute Lymphs (auto) 0.77 L, Nucleated RBC % 0 06/04/20 04:56: Sodium 137, Potassium 3.6, Chloride 101, Carbon Dioxide 33.0 H, Anion Gap 3 L, BUN 10, Creatinine 0.51 L, Estim Creat Clear Calc 150.88, Est GFR (MDRD) Af Amer 215, Est GFR (MDRD) Non-Af 177, BUN/Creatinine Ratio 19.7, Glucose 121 H, Calcium 8.6 06/04/20 06:29: POC Glucose 157 H Current Medications Acetaminophen (Acetaminophen 325 Mg Tablet) 650 mg PO Q6H PRN PRN PRN Reason: Pain Score 1-10/Temp > 100.7 F Last Admin: 06/04/20 06:26 Dose: 650 mg Documented by: Albuterol Sulfate (Albuterol 2.5 Mg/3 Ml Vial.Neb.) 2.5 mg INHALATION Q4H PRN PRN Reason: SOB &/OR WHEEZING Amlodipine Besylate (Amlodipine 10 Mg Tablet) 10 mg PO DAILY [facility] Aspirin (Aspirin E.C. 81 Mg Tablet) [facility] Last Admin: 06/04/20 08:22 Dose: 81 mg Documented by: Atorvastatin Calcium (Atorvastatin Calcium 20 Mg Tablet) 20 mg PO QHS [facility] Last Admin: 06/03/20 21:04 Dose: 20 mg Documented by: Azithromycin (Azithromycin 250 Mg Tablet) 500 mg PO Q24 [facility] Stop: 06/05/20 10:01 Dextrose (Dextrose 50%-Water 25 Gm/50 Ml Disp.Syrin) 0 gm IV X1 PRN; Protocol PRN Reason: Hypoglycemia Enoxaparin Sodium (Enoxaparin 40 Mg/0.4 Ml Syringe) 40 mg SC DAILY [facility] Fluoxetine HCl (Fluoxetine 20 Mg Capsule) 40 mg PO DAILY [facility] Gabapentin (Gabapentin 300 Mg Capsule) 300 mg PO TIDCM [facility] Last Admin: 06/04/20 08:21 Dose: 300 mg Documented by: Glucagon (Glucagon 1 Mg/Ml Syringe) 1 mg IM .X1 PRN PRN Reason: Hypoglycemia Sodium Chloride () 1,000 mls @ 100 mls/hr IV .Q10H TAMMY Last Admin: 06/04/20 01:48 Dose: 100 mls/hr Documented by: Ceftriaxone Sodium 2 gm/ (Sodium Chloride) 50 mls @ 100 mls/hr IV Q24 [facility] Stop: 06/07/20 10:29 Insulin Human Lispro (Insulin Lispro 100 Unit/Ml Insuln.Pen) 0 unit SC ACHS TAMMY; Protocol Last Admin: 06/04/20 06:32 Dose: 2 u Documented by: Losartan Potassium (Losartan Potassium 100 Mg Tablet) 100 mg PO DAILY TAMMY Melatonin (Melatonin 10 Mg Tablet) 15 mg PO QHS [facility] Last Admin: 06/03/20 21:08 Dose: 15 mg Documented by: Nicotine (Nicotine 14 Mg Patch) 14 mg TD DAILY [facility] Non-Formulary Medication (Ibrutinib) 420 mg PO DAILY [facility] Ondansetron HCl (Ondansetron 4 Mg/2 Ml Vial) 4 mg IV Q8H PRN PRN PRN Reason: NAUSEA/VOMITING Sodium Chloride (0.9% Saline Lock 10 Ml Syringe) 10 - 40 ml IV UD PRN PRN Reason: SALINE FLUSH Last Admin: 06/03/20 21:10 Dose: 10 ml Documented by: STROKE Vital Signs/Narrative: Vital Signs Temp Pulse Resp BP Pulse Ox 06/04/20 07:50 97.5 F L 90 20 H 120/59 L 97 06/04/20 07:00 96 06/04/20 06:23 99.2 F H 109 H 20 H 113/43 L 92 Medical Necessity - Tobacco Use Smoking Status: Former smoker Tobacco Use: Cigarettes Assessment/Plan All Active Problems (Last Updated 04/28/20 @ 12:43 by Chanelle White) Pneumonia (Acute) Sepsis (Acute) Lung nodule (Acute) COPD exacerbation (Acute) Acute respiratory failure with hypoxia (Acute) 1. Acute hemoptysis, secondary to pneumococcal pneumonia Need to rule out acute tuberculosis Continue with negative pressure isolation, AFB x3, sputum culture 2. Acute on chronic respiratory failure secondary to pneumococcal pneumonia Patient is on 4 and half liters of oxygen at baseline, currently on 6 L of oxygen Continue with IV antibiotics, breathing treatments, wean off as acute more than 94% 3. Strep pneumoniae bacteremia, recently admitted and discharged with above Continue on IV ceftriaxone, 2D echo, MRI of spine as well as CT chest requested 4. Type II DM, blood sugars are fairly controlled Continue with blood glucose checks and insulin sliding scale 5. Anxiety/depression, continue on Prozac 6. Pretension, controlled, continue on amlodipine, losartan 7. Nicotine dependence, continue on replacement 8. DVT prophylaxis -SCDs on account of hemoptysis Inpatient E&M: 92106 Subs Hosp L2
[2020-06-04] MEDS: Enoxaparin 40 MG/0.4 ML Syringe SC (10:02)
[2020-06-04] MEDS: FLUoxetine 20 MG Capsule 40 MG PO (10:02)
[2020-06-04] MEDS: Azithromycin 250 MG Tablet 500 MG PO (10:02)
[2020-06-04] MEDS: amLODIPine 10 MG Tablet PO (10:02)
[2020-06-04] MEDS: Losartan Potassium 100 MG Tablet PO (10:02)
--- NOTE | 2020-06-04 10:36 | CASEMGMT ---
CECILIA MADDEN assessment: Phone interview with patient for initial transition planning/care coordination assessment at this time. CECILIA MADDEN introduced self and role at [facility], pt voices understanding and consents to assessment at this time. Pt is A/O x4 at this time and answers all questions appropriately at this time. Pt is currently on 6liters nc at this time. Care providers, pharmacy, and demographics verified at this time. Presentation: Admitting dx: PCP: Gary Specialists: Eduardo, onc; naila Jamison Preferred Pharmacy: [facility] Insurance: [place] Prescription Benefit: [place] Living Will/HPOA: Pt states has HPOA and is aware that it is not on file at [facility] at this time. Pt states , Maria D Martínez, is HPOA. Pt does not believe that he has a LW and declines info at this time. LNOK: Maria D Martínez, Living Arrangements: Pt states lives with in 2 story home and states no concerns at home at this time. Pt states is independent with ADL's. Transportation: Pt states drives self or drives and states no transportation concerns at this time. DME/HHC: Pt states has the following DME: cane, cpap, and 4liters continuous home oxygen as well as bleed in to cpap thru [facility]. Pt states no need for any further DME at this time. Pt states no hx of HHC or SNF in the past. Pt states no concerns with going home at time of discharge. Pt states is currently on short term disability. Pt states quit smoking cigarettes a couple weeks ago and states drinks ETOH occasionally. Pt states no further concerns/needs at this time. CM to follow for increased home oxygen need and any further discharge planning/needs. Advised pt to ask for CM if any further questions/concerns/needs arise, voices understanding. Pt Goal: [place] CECILIA MADDEN
--- NOTE | 2020-06-04 11:24 | CASEMGMT ---
CECILIA MADDEN assessment: Phone interview with patient for initial transition planning/care coordination assessment at this time. CECILIA MADDEN introduced self and role at [facility], pt voices understanding and consents to assessment at this time. Pt is A/O x4 at this time and answers all questions appropriately at this time. Pt is currently on 6liters nc at this time. Care providers, pharmacy, and demographics verified at this time. Presentation: Fever, chills, cough, blood in sputum, and SMITH since tuesday. Pt states neg COVID tuesday Admitting dx: Sepsis, pna PCP: Gary Specialists: Eduardo, onc; naila Jamison Preferred Pharmacy: [facility] [place]: [place] Prescription Benefit[place] Living Will/HPOA: Pt states has HPOA and is aware that it is not on file at [facility] at this time. Pt states , Maria D Martínez, is HPOA. Pt does not believe that he has a LW and declines info at this time. LNOK: Maria D Martínez, Living Arrangements: Pt states lives with in 2 story home and states no concerns at home at this time. Pt states is independent with ADL's. Transportation: Pt states drives self or drives and states no transportation concerns at this time. DME/HHC: Pt states has the following DME: cane, cpap, and 4liters w/ exertion home oxygen as well as bleed in to cpap thru [employer]. Pt states no need for any further DME at this time. Pt states no hx of HHC or SNF in the past. Pt states no concerns with going home at time of discharge. Pt states is currently on short term disability. Pt states quit smoking cigarettes a couple weeks ago and states drinks ETOH occasionally. Pt states no further concerns/needs at this time. CM to follow for increased home oxygen need and any further discharge planning/needs. Advised pt to ask for CM if any further questions/concerns/needs arise, voices understanding. Pt Goal: Home Plan[place] CECILIA MADDEN
[2020-06-04 11:41] LABS: Bedside Glucose 192 mg/dL (70-110)
--- NOTE | 2020-06-04 14:30 | CON.PCM_ITS ---
Problem List (1) Pneumonia Status: Acute Qualifiers: Pneumonia type: due to Pneumococcus Laterality: right Lung location: lower lobe of lung Qualified Code(s): J13 - Pneumonia due to Streptococcus pneumoniae (2) Sepsis Status: Acute (3) COPD exacerbation Status: Acute (4) Type 2 diabetes mellitus Status: Chronic Qualifiers: Diabetes mellitus nursing home insulin use: without intermediate teacher use Diabetes mellitus complication status: with circulatory complication Diabetes mellitus complication detail: with other circulatory complications Qualified Code(s): E11.59 - Type 2 diabetes mellitus with other circulatory complications (5) Hypertension Status: Chronic Qualifiers: Hypertension type: essential hypertension Qualified Code(s): I10 - Essential (primary) hypertension (6) Depression Status: Chronic Qualifiers: Depression Type: major depressive disorder Major depression recurrence: recurrent Active/Remission status: in partial remission Qualified Code(s): F33.41 - Major depressive disorder, recurrent, in partial remission (7) Hyperlipemia Status: Chronic Qualifiers: Hyperlipidemia type: mixed hyperlipidemia Qualified Code(s): E78.2 - Mixed hyperlipidemia (8) BPH (benign prostatic hypertrophy) Status: Chronic Reason for Consult Date of Consultation: 06/04/20 Reason for Consultation: Hemoptysis History of Present Illness: The patient is a 60 year old M, with past medical history listed below and known to me from a previous admission, who presented to [facility] on 06/03/2020 secondary to a waxing and waning fever over the last 5 days. Patient reportedly had a temperature as high as 103.4 ?F with chills and rhinorrhea. Patient was recently discharged from [facility] with pneumococcus and was requiring 3 L nasal cannula. Patient had followed up in our office and felt that he had made it back to a baseline function prior to 5 d ays ago. Patient reports that he started to develop hemoptysis approximately 24 hours prior to presentation. Patient states this was described as streaks of blood initially, then as a glob of bright red blood about the size of 1/4 cup and then most recently streaks of blood with pale yellow sputum. In the ER, patient was noted to be tachycardic at 107 bpm. Patient did not have a fever and remaining physical exam was reportedly normal. Laboratory work-up showed a leukocytosis of 17.1 with normal chemistries. Lactate was normal at 1.6. A chest x-ray shows a right lower lobe infiltrate. Blood cultures were obtained and patient was placed on Rocephin and Zithromax and admitted to the hospital for further evaluation. Patient reports he was compliant with the Levaquin that he was discharged on recently. Patient states he has been compliant with his supplemental oxygen most of the time. Patient denies any epistaxis. Patient reports some mild chest heaviness at this time, but feels this is relatively recent. Patient states he has been dealing with lumbar pain. Patient states he had an MRI at [facility] but reportedly had fractures. Patient states he has received pain injections in that area. Patient denies any trauma. Patient is not reporting any risk factors for tuberculosis. Patient has not been smoking. Patient denies any noxious exposures. Patient denies any IV drug use. Patient has had 2 - Covid test in the last 3 weeks. Patient states that he did go to get gas for his car into the grocery store recently, but did wear a mask. Review of systems otherwise negative from a constitutional, HEENT, respiratory, cardiovascular, GI, genitourinary, musculoskeletal, skin, neurologic, psychiatric and hematologic system unless stated above. Past Medical History Past Medical History (Chronic Problems): Chronic Problems (Last Updated 04/28/20 @ 12:43 by Chanelle White) Type 2 diabetes mellitus (Chronic) Hypertension (Chronic) Depression (Chronic) Hyperlipemia (Chronic) BPH (benign prostatic hypertrophy) (Chronic) Medical History: Medical History (Last Updated 04/28/20 @ 12:43 by Chanelle White) Acute respiratory failure with hypoxia J96.01 COPD exacerbation Depression Hyperlipidemia Hypertension COPD (chronic obstructive pulmonary disease) J44.9 Allergies hydrochlorothiazide Allergy (Verified 06/03/20 09:46) Unknown lisinopril Adverse Reaction (Mild, Verified 06/03/20 09:46) cough Home Medications: Ambulatory Orders Medication Instructions Recorded Aspirin E.C. [Ecotrin] 81 mg PO DAILY 01/07/14 Amlodipine [Norvasc] 10 mg PO DAILY 04/08/20 Atorvastatin Calcium [Lipitor] 20 mg PO QHS 04/08/20 Calcium Carbonate [Calcium] 1,200 mg PO DAILY 04/08/20 Cholecalciferol (Vitamin D3) 2,000 unit PO DAILY 04/08/20 [Vitamin D3] Losartan Potassium 100 mg PO DAILY 04/08/20 Melatonin 15 - 20 mg PO QHS 04/08/20 Metformin HCl 500 mg PO BID 04/08/20 Albuterol Inhaler [Ventolin Hfa] 1 puff INHALATION Q4H PRN PRN #1 04/12/20 inhaler nicotine 14 mg/24 hr daily 1 patch TRANSDERMAL DAILY ea 04/28/20 transdermal patch Acetaminophen [Tylenol Extra 1,000 mg PO Q4H PRN PRN 06/03/20 Strength] Fluoxetine HCl 40 mg PO DAILY 06/03/20 Gabapentin [Neurontin] 300 mg PO TID 06/03/20 Ibrutinib [Imbruvica] 420 mg PO DAILY 06/03/20 Surgical History: Surgical History (Last Updated 04/28/20 @ 12:46 by Chanelle White) No pertinent past surgical history Z78.9 Surgical History: noncontributory, herniorrhaphy, - - History foot surgery Psychiatric History: Depression Smoking Status: Former smoker Tobacco Use: Cigarettes Alcohol: None Drugs: None - *Family History Maternal History Items: Cancer Paternal History Items: COPD Sibling History Items: No pertinent history Review of Systems Comment: See HPI Patient Problems: Active and Suspected Problems (Last Updated 04/28/20 @ 12:43 by Chanelle White) Pneumonia (Acute) Sepsis (Acute) Objective: All imaging, including imaging from previous visit were personally reviewed. Patient appears to have a new superior segment right lower lobe infiltrate on chest x-ray. Patient did not have significant emphysema and was noted to have a very large pulmonary artery, approximately equal to the aorta in size. - Physical Exam Vitals/I&O's: Vital Signs Temp Pulse Resp BP Pulse Ox 36.4 C L 95 20 H 120/59 L 97 06/04/20 07:50 06/04/20 11:00 06/04/20 07:50 06/04/20 07:50 06/04/20 07:50 Oxygen Flow Rate (L/min) 6 Oxygen Delivery Method Nasal Cannula Weight: 88.7 kg Body Mass Index (BMI) 29.2 Intake and Output for Last 24 Hours 06/02/20 06/03/20 06/04/20 23:59 23:59 23:59 Intake Total 755 / 755 1974 / 1974 Output Total 550 / 550 700 / 700 Balance 205 / 205 1275 / 1275 General: Alert, Oriented x3, Cooperative, No apparent distress, Well developed, Well nourished, - - Obese. HEENT: Atraumatic, PERRLA, EOMI, Normocephalic, - - No scleral icterus or injection noted Oral: Moist Mucosa, No Gingival or Mucosal Lesions/ Ulcerations Neck: Supple, No JVD, No Nodes, Trachea Midline Lungs: No wheeze, No rales, Rhonchi - Posteriorly on the right Cardiovascular: Regular rate, Normal S1, Normal S2, No murmurs, No rub noted, No Gallop Abdomen: Bowel Sounds Present, Soft, Non Tender, Non-Distended, Obese Extremities: No clubbing, No cyanosis, Edema - Bilateral lower extremities, - - No splinter hemorrhages appreciated. Skin: No rashes, No breakdown Musculoskeletal: Tenderness - Palpation over the lumbosacral area, worse in left lumbar area Lymphatic: No Cervical, Supraclavicular, or Inguinal Adenopathy Neurological: Cranial nerves II-XII grossly intact, Neuro grossly intact, Motor Exam 5/5 strength throughout Psych/Mental Status: Alert and oriented to time, place, person, mood and affect Microbiology Past 72 Hours 06/03/20 10:40 Blood Culture (Wb) - Anticubital Left Blood Culture - Preliminary 06/03/20 10:45 Blood Culture (Wb) - Anticubital Right Bacteria Detection (PCR) - Final Strep pneumoniae 06/03/20 10:45 Blood Culture (Wb) - Anticubital Right Blood Culture - Preliminary 06/03/20 18:50 Urine, Clean Catch Legionella Antigen - Final 06/03/20 18:50 Urine, Clean Catch Streptococcus pneumoniae Antigen (M - Final 06/03/20 17:00 Mucosa - Nasopharyngeal Respiratory Panel (PCR) - Final Laboratory Results 06/03/20 10:34: COVID-19 (JESSIE) Not Detected 06/03/20 16:55: POC Glucose 181 H 06/03/20 21:12: POC Glucose 102 06/04/20 04:56: WBC 18.2 H, RBC 3.43 L, Hgb 10.9 L, Hct 35.7 L, MCV 104.1 H, MCH 31.8, MCHC 30.5 L, RDW Std Deviation 54.6 H, RDW Coeff of Renee 14.3, Plt Count 145 L, MPV 10.9, Immature Gran % (Auto) 1.900 H, Neut % (Auto) 85.4 H, Lymph % (Auto) 4.2 L, Parmer % (Auto) 7.9, Eos % (Auto) 0.3, Baso % (Auto) 0.3, Absolute Neuts (auto) 15.5 H, Absolute Lymphs (auto) 0.77 L, Nucleated RBC % 0 06/04/20 04:56: Sodium 137, Potassium 3.6, Chloride 101, Carbon Dioxide 33.0 H, Anion Gap 3 L, BUN 10, Creatinine 0.51 L, Estim Creat Clear Calc 150.88, Est GFR (MDRD) Af Amer 215, Est GFR (MDRD) Non-Af 177, BUN/Creatinine Ratio 19.7, Glucose 121 H, Calcium 8.6 06/04/20 06:29: POC Glucose 157 H 06/04/20 11:27: POC Glucose 192 H 06/04/20 12:05: TB Test (QFT) Nil Pending, TB Test (QFT) Mitogen Pending, TB Test (QFT) Ag 1 Pending, TB Test (QFT) Ag 2 Pending, TB Test (QFT) Pending, TB Positive Criteria Pending 06/04/20 12:30: Acid Fast Stain Pending, Miscellaneous Cytology Pending Current Medications Acetaminophen (Acetaminophen 325 Mg Tablet) 650 mg PO Q6H PRN PRN PRN Reason: Pain Score 1-10/Temp > 100.7 F Last Admin: 06/04/20 06:26 Dose: 650 mg Documented by: Albuterol Sulfate (Albuterol 2.5 Mg/3 Ml Vial.Neb.) 2.5 mg INHALATION Q4H PRN PRN Reason: SOB &/OR WHEEZING Amlodipine Besylate (Amlodipine 10 Mg Tablet) 10 mg PO DAILY [facility] Last Admin: 06/04/20 10:02 Dose: 10 mg Documented by: Aspirin ([facility]in E.C. 81 Mg Tablet) [facility] Last Admin: 06/04/20 08:22 Dose: 81 mg Documented by: Atorvastatin Calcium (Atorvastatin Calcium 20 Mg Tablet) 20 mg PO QHS [facility] Last Admin: 06/03/20 21:04 Dose: 20 mg Documented by: Azithromycin (Azithromycin 250 Mg Tablet) 500 mg PO Q24 [facility] Stop: 06/05/20 10:01 Last Admin: 06/04/20 10:02 Dose: 500 mg Documented by: Dextrose (Dextrose 50%-Water 25 Gm/50 Ml Disp.Syrin) 0 gm IV X1 PRN; Protocol PRN Reason: Hypoglycemia Fluoxetine HCl (Fluoxetine 20 Mg Capsule) 40 mg PO DAILY [facility] Last Admin: 06/04/20 10:02 Dose: 40 mg Documented by: Gabapentin (Gabapentin 300 Mg Capsule) 300 mg PO TIDCM [facility] Last Admin: 06/04/20 11:29 Dose: 300 mg Documented by: Glucagon (Glucagon 1 Mg/Ml Syringe) 1 mg IM .X1 PRN PRN Reason: Hypoglycemia Sodium Chloride () 1,000 mls @ 100 mls/hr IV .Q10H [facility] Last Admin: 06/04/20 12:17 Dose: 100 mls/hr Documented by: Ceftriaxone Sodium 2 gm/ (Sodium Chloride) 50 mls @ 100 mls/hr IV Q24 [facility] Stop: 06/07/20 10:29 Last Infusion: 06/04/20 10:28 Dose: Infused Documented by: Insulin Human Lispro (Insulin Lispro 100 Unit/Ml Insuln.Pen) 0 unit SC ACHS [facility]; Protocol Last Admin: 06/04/20 11:29 Dose: 2 u Documented by: Losartan Potassium (Losartan Potassium 100 Mg Tablet) 100 mg PO DAILY [facility] Last Admin: 06/04/20 10:02 Dose: 100 mg Documented by: Melatonin (Melatonin 10 Mg Tablet) 15 mg PO QHS [facility] Last Admin: 06/03/20 21:08 Dose: 15 mg Documented by: Nicotine (Nicotine 14 Mg Patch) 14 mg TD DAILY [facility] Last Admin: 06/04/20 10:03 Dose: 14 mg Documented by: Non-Formulary Medication (Ibrutinib) 420 mg PO DAILY [facility] Ondansetron HCl (Ondansetron 4 Mg/2 Ml Vial) 4 mg IV Q8H PRN PRN PRN Reason: NAUSEA/VOMITING Sodium Chloride (0.9% Saline Lock 10 Ml Syringe) 10 - 40 ml IV UD PRN PRN Reason: SALINE FLUSH Last Admin: 06/03/20 21:10 Dose: 10 ml Documented by: Assessment/Plan All Active Problems (Last Updated 04/28/20 @ 12:43 by Chanelle White) Pneumonia (Acute) Sepsis (Acute) Lung nodule (Acute) COPD exacerbation (Acute) Acute respiratory failure with hypoxia (Acute) RECOMMENDATIONS: 1. Await ID recommendations 2. Continue with ceftriaxone 3. Possible need for cheema CT versus MARLYS 4. Consider prednisone therapy if respiratory status decompensates 5. Wean oxygen as tolerated. Walking oximetry prior to discharge IMPRESSIONS: 1. Severe sepsis secondary to pneumococcal pneumonia in the setting of chronic respiratory failure secondary to probable COPD On previous hospitalization, patient did grow a pneumococcus from the sputum that was treated with Levaquin therapy. This is rapid turnaround for pneumococcus pneumonia (3 weeks). Some concern the patient may have an indolent source such as discitis. Patient is being seen by infectious disease. Previous culture did show susceptibility to ceftriaxone. If bacterial resistance pattern is consistent, may benefit from a cheema CT versus white blood cell scan versus lumbar MRI versus MARLYS, especially if blood cultures remain positive. 2. Probable COPD with history of tobacco use Patient has not completed pulmonary function test for quantification clarification of lung function. Patient does not have significant wheezing on exam, so okay to start off of steroids for now. Could add Pulmicort initially. Would consider bronchodilators. Nicotine patch would be helpful. Patient was on 3 L nasal cannula at baseline. Patient with only a slight change at this time despite infiltrates on chest x-ray. 3. Diabetes mellitus type 2/anxiety/depression/obesity/hypertension/hyperlipidemia/repeated hospitalizations Complicates care, management, recovery and prognosis. Agree with using sliding scale instead of Metformin. Patient can likely be continued on current antihypertensive regimen. Would monitor renal function. Inpatient E&M: 60263 Init Hosp L3
--- NOTE | 2020-06-04 16:00 | CT_ITS ---
STUDY: CT CHEST WITH CONTRAST REASON FOR EXAM: Male, 60 years old. POSSIBLE LUNG ABSCESS RADIATION DOSAGE (If Supplied By Facility): CTDIvol = ( ) mGy, DLP = ( 593.61 ) mGycm TECHNIQUE: Transaxial imaging was performed following intravenous administration of IV 100mL Isovue-300. Individualized dose optimization techniques were used for this CT. COMPARISON: Portable chest 06/03/2020 FINDINGS: There is extensive consolidation in the right lower lobe with air bronchograms consistent with pneumonia. There is also mild subsegmental atelectasis or evolving infiltrate at left base. There is a partially loculated right pleural effusion. The fluid is serous composition and there are no air bubbles to suggest presence of empyema. Heart is enlarged and there is coronary artery calcification. Multiple mildly enlarged mediastinal nodes... Normal enhanced pulmonary arteries. Atherosclerotic changes of the aorta without evidence for aneurysm. Normal osseous structures. There is no demonstrated abnormality of the visualized upper abdomen. CT/Chest WITH Contrast IMPRESSION: Dense right lower lobe infiltrate with associated partially loculated right pleural effusion. Mild left lower lobe atelectasis or infiltrate No evidence for pulmonary abscess Electronically Signed: Corwin Montenegro MD at 17:51 EST , Service support ,
--- NOTE | 2020-06-04 16:01 | MRI_ITS ---
STUDY: MRI LUMBAR SPINE WITH AND WITHOUT CONTRAST REASON FOR EXAM: Male, 60 years old patient with low back pain and bilateral leg pain. History of central canal stenosis. Patient has associated infection, possibly secondary to tuberculosis. TECHNIQUE: Standardized fat and water weighted pulse sequences were obtained in the sagittal and axial planes. 18 ml of IV Dotarem was administered for the contrast portion of the examination. Several images are limited by patient motion. COMPARISON: Prior comparison studies are not available for review at this time. FINDINGS: T12-L1: There is narrowing of this disc with irregularity of the endplates possibly secondary to Schmorl''s nodes. There is mild annular disk bulge and osteophyte complex. There is mild degenerative arthropathy of the facet joints. Bilateral neuroforamina are narrowed without MR evidence for nerve impingement. There is no significant acquired central canal stenosis. There is straightening of the normal lumbar lordosis. There is no substantial scoliosis. Normal conus medullaris that terminates at the L1 level. L1-2: There is narrowing of this disc with irregularity of the endplates possibly secondary to Schmorl''s nodes. There is mild annular disk bulge and osteophyte complex. There is mild degenerative arthropathy of the facet joints. Bilateral neuroforamina are narrowed without MR evidence for nerve impingement. There is no significant acquired central canal stenosis. L2-3: There is mild annular disk bulge and osteophyte complex. There is mild degenerative arthropathy of the facet joints. Bilateral neuroforamina are narrowed without MR evidence for nerve impingement. There is no significant acquired central canal stenosis. L3-4: There is moderately severe degenerative arthropathy of the facet joints. There is a moderate disc bulge and osteophyte complex. Patient appears to have a congenital small spinal canal at this level. No foramina are narrowed without evidence of nerve impingement. L4-5: There is annular disc bulge and osteophyte complex. There are severe degenerative arthropathy of the facet joints. There is moderate central canal stenosis. Neuroforamina are narrowed without evidence of nerve impingement. L5-S1: There is mild annular disk bulge and osteophyte complex. There is moderately severe degenerative arthropathy of the facet joints. Bilateral neuroforamina are narrowed without MR evidence for nerve impingement. There is no significant acquired central canal stenosis. Normal visualized sacral ala. Normal visualized paraspinous soft tissue structures. There is no demonstrated abnormal enhancement. There is a large amount of motion artifact on the axial enhanced T1 weighted images. MRI/Spine Lumbar W/WO Contrast IMPRESSION: 1. Moderately severe multilevel degenerative disc disease and degenerative arthropathy of the lumbar spine with neural foraminal narrowing and central acquired canal stenosis as described. 2. 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 3. 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 Electronically Signed: Ashley Gore MD at 23:49 EST , Service support ,
--- NOTE | 2020-06-04 16:03 | ECHOD_ITS ---
Reason For Study: MURMUR Procedure This was a 2D Doppler, Color Flow transthoracic echocardiogram. Exam performed portable in patient room. Left Ventricle Normal LV size. Left ventricular systolic function is normal. The estimated ejection fraction is 55 %. No regional wall motion abnormalities noted. Right Ventricle Mildly dilated right ventricle. Normal systolic function. Atria The left atrium is mildly enlarged. Normal right atrium. Mitral Valve Normal mitral valve. Tricuspid Valve Normal tricuspid valve. Aortic Valve Normal aortic valve. Trisinus/trileaflet aortic valve. Pulmonic Valve The pulmonic valve is not well visualized. Great Vessels Normal aortic root. The pulmonary artery is normal size. Normal inferior vena cava. Pericardium/Pleural No pericardial effusion. MMode/2D Measurements & Calculations LVIDd: 5.7 cm IVSd: 1.1 cm Ao root diam: 3.4 cm LVIDs: 3.7 cm LVPWd: 1.1 cm RVDd: 3.7 cm FS: 34.5 % LAV(MOD-bp): 66.9 ml LA A4 area: 22.4 cm2 LA dimension(2D): 3.8 cm LAV(MOD-bp) Indexed: 32.9 ml/m2 LAV(MOD-sp2): 60.4 ml LAV(MOD-sp4): 72.8 ml RA A4 area: 18.9 cm2 Time Measurements MV dec time: 0.17 sec Doppler Measurements & Calculations MV E max anant: 111.8 cm/sec Lat Peak E' Anant: 12.8 cm/sec Med Peak E' Anant: 9.9 cm/sec MV A max anant: 91.4 cm/sec E/E' lat: 8.7 E/E' med: 11.3 MV E/A: 1.2 Ao V2 max: 166.4 cm/sec LV V1 max: 141.0 cm/sec PA V2 max: 111.5 cm/sec Ao max P.1 mmHg LV V1 max P.0 mmHg TR max anant: 227.2 cm/sec TR max P.6 mmHg Interpretation Summary Normal LV size. Left ventricular systolic function is normal. The estimated ejection fraction is 55 %. The left atrium is mildly enlarged. No vegetation seen. There is no evidence of a mass or vegetation. This does not rule out endocarditis. Ordering Physician: Frederic Rodriguez Referring Physician: Brett Vega Performed By: Mahi Vernon RDCS, RVT
--- NOTE | 2020-06-04 16:04 | PCM.HP.ID ---
Problem List (1) Pneumonia Status: Acute Qualifiers: Pneumonia type: due to Pneumococcus Laterality: right Lung location: lower lobe of lung Qualified Code(s): J13 - Pneumonia due to Streptococcus pneumoniae Reason for Consult: bacteremia Consulted by: Dr. Faust History of Present Illness: The patient is a 60 year old M with COPD, admitted end of March with s.pneumo pneumonia, did not have Bcx done at that time. Given course of levaquin, felt better but after abx finished felt like he started going backwards. He hurt his back lifting something, after that felt like he couldn't support the weight of his upper body. Saw business services specialist sales, MRI about a month ago showed spinal stenosis. Now with 5-6 days of fever, cough, dyspnea, not feeling well, and some hemoptysis. Some night sweats this past week. No weight loss, no known TB exposures. Came to ED, admitted on azithro/ceftriaxone, now bcx with s.pneumo, feeling a little better. Still with lower back pain. No other joint pain. Full ROS performed and neg except as noted above. - Medical History Past Medical History (Chronic Problems): Chronic Problems (Last Updated 04/28/20 @ 12:43 by Chanelle White) Type 2 diabetes mellitus (Chronic) Hypertension (Chronic) Depression (Chronic) Hyperlipemia (Chronic) BPH (benign prostatic hypertrophy) (Chronic) Allergies/Adverse Reactions: Allergies hydrochlorothiazide Allergy (Verified 06/03/20 09:46) Unknown lisinopril Adverse Reaction (Mild, Verified 06/03/20 09:46) cough Home Medications: Ambulatory Orders Medication Instructions Recorded Aspirin E.C. [Ecotrin] 81 mg PO DAILY 01/07/14 Amlodipine [Norvasc] 10 mg PO DAILY 04/08/20 Atorvastatin Calcium [Lipitor] 20 mg PO QHS 04/08/20 Calcium Carbonate [Calcium] 1,200 mg PO DAILY 04/08/20 Cholecalciferol (Vitamin D3) 2,000 unit PO DAILY 04/08/20 [Vitamin D3] Losartan Potassium 100 mg PO DAILY 04/08/20 Melatonin 15 - 20 mg PO QHS 04/08/20 Metformin HCl 500 mg PO BID 04/08/20 Albuterol Inhaler [Ventolin Hfa] 1 puff INHALATION Q4H PRN PRN #1 04/12/20 inhaler nicotine 14 mg/24 hr daily 1 patch TRANSDERMAL DAILY ea 04/28/20 transdermal patch Acetaminophen [Tylenol Extra 1,000 mg PO Q4H PRN PRN 06/03/20 Strength] Fluoxetine HCl 40 mg PO DAILY 06/03/20 Gabapentin [Neurontin] 300 mg PO TID 06/03/20 Ibrutinib [Imbruvica] 420 mg PO DAILY 06/03/20 - Social History SMOKING STATUS:: Former smoker Vital Signs Temp Pulse Resp BP Pulse Ox 98.6 F 99 18 136/68 H 92 06/04/20 13:50 06/04/20 15:00 06/04/20 13:50 06/04/20 13:50 06/04/20 13:50 Oxygen Flow Rate (L/min) 6 Oxygen Delivery Method Nasal Cannula Weight: 88.7 kg Body Mass Index (BMI) 29.2 Microbiology Past 72 Hours 06/03/20 10:40 Blood Culture - Preliminary Blood Culture (Wb) - Anticubital Left 06/03/20 10:45 Bacteria Detection (PCR) - Final Blood Culture (Wb) - Anticubital Right Strep pneumoniae Blood Culture - Preliminary 06/03/20 18:50 Legionella Antigen - Final Urine, Clean Catch Streptococcus pneumoniae Antigen (M - Final 06/03/20 17:00 Respiratory Panel (PCR) - Final Mucosa - Nasopharyngeal Laboratory Tests Past 24 Hrs 06/04/20 06/04/20 06/04/20 04:56 04:56 12:05 WBC 18.2 H RBC 3.43 L Hgb 10.9 L Hct 35.7 L MCV 104.1 H MCH 31.8 MCHC 30.5 L RDW Std Deviation 54.6 H RDW Coeff of Renee 14.3 Plt Count 145 L MPV 10.9 Immature Gran % (Auto) 1.900 H Neut % (Auto) 85.4 H Lymph % (Auto) 4.2 L [place] % (Auto) 7.9 Eos % (Auto) 0.3 Baso % (Auto) 0.3 Absolute Neuts (auto) 15.5 H Absolute Lymphs (auto) 0.77 L Nucleated RBC % 0 Sodium 137 Potassium 3.6 Chloride 101 Carbon Dioxide 33.0 H Anion Gap 3 L BUN 10 Creatinine 0.51 L Estim Creat Clear Calc 150.88 Est GFR (MDRD) Af Amer 215 Est GFR (MDRD) Non-Af 177 BUN/Creatinine Ratio 19.7 Glucose 121 H Calcium 8.6 Acid Fast Stain TB Test (QFT) Nil Pending TB Test (QFT) Mitogen Pending TB Test (QFT) Ag 1 Pending TB Test (QFT) Ag 2 Pending TB Test (QFT) Pending TB Positive Criteria Pending Miscellaneous Cytology 06/04/20 12:30 WBC RBC Hgb Hct MCV MCH MCHC RDW Std Deviation RDW Coeff of Renee Plt Count MPV Immature Gran % (Auto) Neut % (Auto) Lymph % (Auto) [place] % (Auto) Eos % (Auto) Baso % (Auto) Absolute Neuts (auto) Absolute Lymphs (auto) Nucleated RBC % Sodium Potassium Chloride Carbon Dioxide Anion Gap BUN Creatinine Estim Creat Clear Calc Est GFR (MDRD) Af Amer Est GFR (MDRD) Non-Af BUN/Creatinine Ratio Glucose Calcium Acid Fast Stain Pending TB Test (QFT) Nil TB Test (QFT) Mitogen TB Test (QFT) Ag 1 TB Test (QFT) Ag 2 TB Test (QFT) TB Positive Criteria Miscellaneous Cytology Pending - Other Studies Radiology: [] reviewed Other Studies: [] Route of nutrition/ use of supplements: [] Nutritional Intake: [] IV Site: [] [place] Catheter: [] - Physical Exam General: Alert, Oriented x3, Cooperative, No apparent distress HEENT: Atraumatic, PERRLA, EOMI Neck: Supple, No Nodes Lungs: Rhonchi, Wheezes Cardiovascular: Regular rate, Regular Rhythm, No murmurs Abdomen: Soft, Non Tender, Non-Distended Extremities: No edema Skin: No rashes, - - no splinter hemorrhages on hands or feet IV Site: Peripheral, without redness Musculoskeletal: No Tenderness to Palpation of Joints or Extremities - no spine pain Neurological: Cranial nerves II-XII grossly intact - Assessment/Plan Antibiotics: [] Assessment/Plan: [] Active and Suspected Problems (Last Updated 04/28/20 @ 12:43 by Chanelle White) Pneumonia (Acute) Sepsis (Acute) COPD exacerbation (Acute) Recurrent s.pneumo infection - Not clear if the episodes are related. Will check CT chest to look for abscess, echo to look for veg, and MRI L spine to look for osteo. Cont ceftriaxone, stop azithro. AFB pending, low suspicion for TB. Covid neg. Will follow, thank you, d/w Dr. Jamison
[2020-06-04 16:20] LABS: Bedside Glucose 127 mg/dL (70-110)
[2020-06-04] MEDS: LORazepam 1 MG Tablet PO (17:59)
--- NOTE | 2020-06-04 19:49 | EKG12_ITS ---
Test Reason : TACHY Blood Pressure : / mmHG Vent. Rate : 071 BPM Atrial Rate : 071 BPM P-R Int : 142 ms QRS Dur : 144 ms QT Int : 426 ms P-R-T Axes : 033 124 055 degrees QTc Int : 462 ms Normal sinus rhythm Rightward axis Possible LPFB Right bundle branch block Abnormal ECG Confirmed by LINO HUTCHISON, ROBERT ([id number]), primer expeditor and drier NASIM BLANKENSHIP ([id number]) on 06/11/2020 9:51:04 AM Referred By: RADHA Confirmed By:ROBERT HUYNH MD
--- NOTE | 2020-06-04 20:20 | PCM.PN.BLA ---
Progress Note Patients with A. fib and RVR. Patient with hemoptysis. No anticoagulation at this time. Check magnesium and TSH. Start patient Cardizem bolus and drip.
[2020-06-04] MEDS: dilTIAZem 25 MG/5 ML Vial 10 MG IV BOLUS (20:38)
--- NOTE | 2020-06-04 21:02 | NURSING ---
Pt arrived back from MRI around 1940, put back on telemetry. HR in the 140s, up to 150s max. Pt assessed, no c/o symptoms. Dr. Dale notified of sustained HR in 140s, wide QRS, unclear if sinus or afib. No hx of afib per pt and chart. MD ordered stat EKG, 40 PO potassium, and check mag level in AM with labs. EKG showed afib RVR, sent to MD via cortext. MD ordered cardizem bolus 10 mg x1, also cardizem gtt to be started. This RN gave cardizem bolus, vitals stable except for HR still in 120s. This RN gave report to CECILIA Mackey who will be taking over care for this pt. CECILIA Montalvo.
[2020-06-04 21:06] LABS: Thyroid Stim Hormone (TSH) 2.37 uIU/mL (0.358-3.74)
[2020-06-04] MEDS: MELATONIN 10 MG TABLET 15 MG PO (22:15)
[2020-06-04] MEDS: Atorvastatin Calcium 20 MG Tablet PO (22:15)
[2020-06-04] MEDS: CLARIFY ORDER NOTE (22:16)
[2020-06-04 22:36] LABS: Bedside Glucose 191 mg/dL (70-110)
--- NOTE | 2020-06-04 23:23 | NURSING ---
Pt. sustaining in 70s% SpO2 on home CPap unit. Non-rebreather applied, pt. taking over 10 mins to recover to 89% with RT aware. In house CPap ordered.
[2020-06-05] VITALS (24 sets, daily range): BP systolic 98–138; BP diastolic 54–72; PULSE 64–94; RESP 12–20; TEMP 36.6–36.9; O2SAT 90–99
--- NOTE | 2020-06-05 | SPU_PTH ---
PATIENT: TRINA FAIR LOC: [facility] U#:[id number] AGE/SX: 60/M ROOM: [facility] RE06/03/[address]: Dr. Pamela Faust MD : [id number] BED: 1 DIS: 06/07/2020 SPEC #: [id number] RECD: 06/05/20 05:00 STATUS: GABO COLLEEN #: [id number] PHU: 06/05/20 00:[address]: Pamela Faust DEPT: CYTOLOGY RECD BY: Surya Huston ENTERED: 06/06/20 08:14 SP TYPE: Sputum Cy OTHR DR: MD Dr. Hector Avelar MD Dr. Nicholas F Kotsonis, MD Dr. Robert Leininger, MD Tissues: Sputum Procedures: Pap Stain (control) Special Stain Group II Special Stain Group I AFB Stain (control) Cytospin Fluid HEADER OPERATION: Not noted PRE-OP DIAGNOSIS: Sepsis, pneumonia TISSUE SUBMITTED: Sputum #2 for cytology DIAGNOSIS CYTOLOGY Sputum #2 for cytology (cytospin and smears): Negative for malignant cells. Special stain for acid fast bacilli is negative for organisms; matched control is appropriate. SJ:nirmal 06/06/20 COMMENT The results are reported to Dr. Jamison's nurse, Ms. Carey on 06/06/20. CYTOLOGY STUDY Slides are reviewed. CYTOLOGY GROSS Received is 3 ml of red mucoid fluid labeled with the patient's name and and designated per the requisition as sputum #2. Submitted for cytology preparation. / nirmal 06/06/20 TC:5 CPT: 13414, 85714
--- NOTE | 2020-06-05 01:00 | EKG12_ITS ---
Test Reason : TACHY Blood Pressure : / mmHG Vent. Rate : 125 BPM Atrial Rate : 108 BPM P-R Int : 000 ms QRS Dur : 130 ms QT Int : 326 ms P-R-T Axes : 000 179 041 degrees QTc Int : 470 ms Atrial fibrillation Right bundle branch block Possible Left posterior fascicular block Bifascicular block Abnormal ECG Confirmed by LINO HUTCHISON, ROBERT ([id number]), manager editorial NASIM BLANKENSHIP ([id number]) on 06/11/2020 9:51:30 AM Referred By: RADHA Confirmed By:ROBERT HUYNH MD
[2020-06-05] MEDS: 0.9% Normal Saline 1,000 ML 100 ML IV (01:30)
[2020-06-05 06:55] LABS: Bedside Glucose 126 mg/dL (70-110)
[2020-06-05 07:08] LABS: Absolute Lymphocyte Count 0.46 X10^3/uL (0.83-4.51); Basophil# 0.04 X10^3/uL; Basophil% 0.3 % (0-1); Eosinophil# 0.04 X10^3/uL; Eosinophils% 0.3 % (0-5); Hematocrit 32.8 % (40-54); Lymphocyte # 0.46 X10^3/ul (4.0); Lymphocyte % 3.8 % (19-41); Mean Corp Hgb Conc 30.5 g/dL (32-36); Mean Corpuscular Hgb 31.9 pg (27.0-32.0); Mean Corpuscular Volume 104.8 fL (80-94); Mean Platelet Vol. 10.5 fl (6.2-12.0); Monocyte# 1.13 X10^3/uL; Monocyte% 9.3 % (0-10); NRBC Flagged by Analyzer 0.2 % (0-5); Neutrophil # 9.98 X10^3/uL (2.7-7.7); Neutrophil % 82.3 % (47-70); POSITIVE DIFFERENTIAL YES; Platelet Count 147 K/mm3 (150-450); RBC Distribution Width CV 14.4 % (11.6-14.6); RBC Distribution Width SD 55.8 fl (35.1-43.9); Red Blood Count 3.13 M/mm3 (4.6-6.2); White Blood Count 12.1 K/mm3 (4.4-11.0)
[2020-06-05 07:10] LABS: Differential Indicated SCAN CRITERIA MET
[2020-06-05 07:21] LABS: International Normalized Ratio 1.1; Prothrombin Time (Protime)PT. 13.6 SECONDS (11.7-14.9)
[2020-06-05 07:22] LABS: Partial Thromboplast Time 26.2 Seconds (24.1-36.2)
[2020-06-05 07:41] LABS: Magnesium 2.7 mg/dL (1.6-2.6)
[2020-06-05 07:44] LABS: ALB/GLOB Ratio 0.6 RATIO (0.9-2.4); AST(SGOT) 29 U/L (15-37); Alanine Aminotransfer ALT/SGPT 28 U/L (16-61); Alkaline Phosphatase 162 U/L (45-117); Anion Gap 2 (5-15); BUN 12 mg/dL (7-18); BUN/Creat Ratio 30.5 RATIO (10-20); Chloride 107 mmol/L (98-107); Creatinine, Serum 0.39 mg/dL (0.70-1.30); EST Glomerular Filtration Rate 239 mL/min (>60); Est Glom Filt Rate - Afr Amer 289 mL/min (>60); Estimated Creatinine Clearance 197.31 ml/min; Globulin 3.1 g/dL (2.2-4.2); Glucose 126 mg/dL (74-106); Potassium 3.9 mmol/L (3.5-5.1); Protein, Total 5.1 g/dL (6.4-8.2); Sodium Level 142 mmol/L (136-145)
[2020-06-05] MEDS: amLODIPine 10 MG Tablet PO (09:11)
[2020-06-05] MEDS: Gabapentin 300 MG Capsule PO ×3 (09:11→16:11)
[2020-06-05] MEDS: Azithromycin 250 MG Tablet 500 MG PO (09:11)
[2020-06-05] MEDS: FLUoxetine 20 MG Capsule 40 MG PO (09:11)
[2020-06-05] MEDS: Losartan Potassium 100 MG Tablet PO (09:12)
[2020-06-05] MEDS: Aspirin E.C. 81 MG Tablet PO (09:23)
[2020-06-05] MEDS: Furosemide 40 MG/4 ML Vial IV (11:07)
[2020-06-05] MEDS: 0.9% Saline Lock 10 ML Syringe IV ×2 (11:07→14:24)
[2020-06-05 11:25] LABS: Bedside Glucose 143 mg/dL (70-110)
--- NOTE | 2020-06-05 11:36 | NURSING ---
Cardizem gtt was no longer running at the beginning of the shift. HS nurse had stopped at approximately 0300 according to report given at shift change.
--- NOTE | 2020-06-05 11:41 | PN_ITS ---
<Jovany Guevara - Last Filed: 06/05/20 11:41> Patient Problems: Active and Suspected Problems (Last Updated 04/28/20 @ 12:43 by Chanelle White) Pneumonia (Acute) Sepsis (Acute) COPD exacerbation (Acute) Reason for Visit: strep bacteremia Subjective: chills resolved. no CP. Ongoing hemoptysis. Ongoing SOB, appears to have conversational dyspnea. Pt admits he has been smoking occasionally. Vitals/I&O's: Vital Signs Temp Pulse Resp BP Pulse Ox 98.3 F 81 17 133/72 H 92 06/05/20 09:00 06/05/20 09:00 06/05/20 09:00 06/05/20 09:00 06/05/20 09:00 Oxygen Flow Rate (L/min) 10 Oxygen Delivery Method Bi-pap Weight: 195 lb 8.8 oz Body Mass Index (BMI) 29.2 Intake and Output for Last 24 Hours 06/03/20 06/04/20 06/05/20 23:59 23:59 23:59 Intake Total 755 / 755 3115.83 / 3120.83 1666.67 / 1666.67 Output Total 550 / 550 1200 / 1200 900 / 900 Balance 205 / 205 1915.83 / 1920.83 766.67 / 766.67 General: Alert, Oriented x3, Cooperative HEENT: Atraumatic, PERRLA, EOMI, Normocephalic Neck: Supple, No JVD, Negative Carotid Bruits Lungs: Clear to auscultation, Diminished Cardiovascular: Regular rate, No murmurs Abdomen: Bowel Sounds Present, Soft, Non Tender Extremities: No edema, Capillary Refill Less than 3 Seconds Skin: No rashes, No breakdown Musculoskeletal: No Tenderness to Palpation of Joints or Extremities Neurological: Cranial nerves II-XII grossly intact Psych/Mental Status: Normal Affect, Appropriate Microbiology Past 72 Hours 06/03/20 10:40 Blood Culture (Wb) - Anticubital Left Blood Culture - Final Streptococcus pneumoniae 06/03/20 10:45 Blood Culture (Wb) - Anticubital Right Bacteria Detection (PCR) - Final Strep pneumoniae 06/03/20 10:45 Blood Culture (Wb) - Anticubital Right Blood Culture - Preliminary 06/03/20 18:50 Urine, Clean Catch Legionella Antigen - Final 06/03/20 18:50 Urine, Clean Catch Streptococcus pneumoniae Antigen (M - Final 06/03/20 17:00 Mucosa - Nasopharyngeal Respiratory Panel (PCR) - Final Laboratory Results 06/04/20 04:56: TSH 2.37 06/04/20 11:27: POC Glucose 192 H 06/04/20 12:05: TB Test (QFT) Nil Pending, TB Test (QFT) Mitogen Pending, TB Test (QFT) Ag 1 Pending, TB Test (QFT) Ag 2 Pending, TB Test (QFT) Pending, TB Positive Criteria Pending 06/04/20 12:30: Acid Fast Stain Pending, Miscellaneous Cytology Pending 06/04/20 16:12: POC Glucose 127 H 06/04/20 22:20: POC Glucose 191 H 06/05/20 06:44: POC Glucose 126 H 06/05/20 06:59: Magnesium 2.7 H 06/05/20 06:59: WBC 12.1 H, RBC 3.13 L, Hgb 10.0 L, Hct 32.8 L, MCV 104.8 H, MCH 31.9, MCHC 30.5 L, RDW Std Deviation 55.8 H, RDW Coeff of Renee 14.4, Plt Count 147 L, MPV 10.5, Immature Gran % (Auto) 4.000 H, Neut % (Auto) 82.3 H, Lymph % (Auto) 3.8 L, [place] % (Auto) 9.3, Eos % (Auto) 0.3, Baso % (Auto) 0.3, Absolute Neuts (auto) 10.0 H, Absolute Lymphs (auto) 0.46 L, Nucleated RBC % 0.2 06/05/20 06:59: PT 13.6, INR 1.1, APTT 26.2 06/05/20 06:59: Sodium 142, Potassium 3.9, Chloride 107, Carbon Dioxide 33.0 H, Anion Gap 2 L, BUN 12, Creatinine 0.39 L, Estim Creat Clear Calc 197.31, Est GFR (MDRD) Af Amer 289, Est GFR (MDRD) Non-Af 239, BUN/Creatinine Ratio 30.5 H, Glucose 126 H, Calcium 8.0 L, Total Bilirubin 0.30, AST 29, ALT 28, Alkaline Phosphatase 162 H, Total Protein 5.1 L, Albumin 2.0 L, Globulin 3.1, Albumin/Globulin Ratio 0.6 L 06/05/20 11:12: POC Glucose 143 H Current Medications Acetaminophen (Acetaminophen 325 Mg Tablet) 650 mg PO Q6H PRN PRN PRN Reason: Pain Score 1-10/Temp > 100.7 F Last Admin: 06/04/20 22:15 Dose: 650 mg Documented by: Albuterol Sulfate (Albuterol 2.5 Mg/3 Ml Vial.Neb.) 2.5 mg INHALATION Q4H PRN PRN Reason: SOB &/OR WHEEZING Amlodipine Besylate (Amlodipine 10 Mg Tablet) 10 mg PO DAILY [facility] [place] Last Admin: 06/05/20 09:11 Dose: 10 mg Documented by: Aspirin (Aspirin E.C. 81 Mg Tablet) 81 mg PO DAILYCM [facility] Last Admin: 06/05/20 09:23 Dose: 81 mg Documented by: Atorvastatin Calcium (Atorvastatin Calcium 20 Mg Tablet) 20 mg PO QHS [facility] Last Admin: 06/04/20 22:15 Dose: 20 mg Documented by: Dextrose (Dextrose 50%-Water 25 Gm/50 Ml Disp.Syrin) 0 gm IV X1 PRN; Protocol PRN Reason: Hypoglycemia Fluoxetine HCl (Fluoxetine 20 Mg Capsule) 40 mg PO DAILY [facility] [place] Last Admin: 06/05/20 09:11 Dose: 40 mg Documented by: Gabapentin (Gabapentin 300 Mg Capsule) 300 mg PO TIDCM [facility] [place] Last Admin: 06/05/20 11:10 Dose: 300 mg Documented by: Glucagon (Glucagon 1 Mg/Ml Syringe) 1 mg IM .X1 PRN PRN Reason: Hypoglycemia Ceftriaxone Sodium 2 gm/ (Sodium Chloride) 50 mls @ 100 mls/hr IV Q24 [facility] Stop: 06/07/20 10:29 Last Infusion: 06/05/20 11:34 Dose: Infused Documented by: Insulin Human Lispro (Insulin Lispro 100 Unit/Ml Insuln.Pen) 0 unit SC ACHS [facility]; Protocol Last Admin: 06/05/20 11:13 Dose: Not Given Documented by: Losartan Potassium (Losartan Potassium 100 Mg Tablet) 100 mg PO DAILY [facility] [place] Last Admin: 06/05/20 09:12 Dose: 100 mg Documented by: Melatonin (Melatonin 10 Mg Tablet) 15 mg PO QHS [facility] Last Admin: 11/25/20 22:15 Dose: 15 mg Documented by: Nicotine (Nicotine 14 Mg Patch) 14 mg TD DAILY T[facility]MY Last Admin: 06/05/20 09:19 Dose: 14 mg Documented by: Non-Formulary Medication (Ibrutinib) 420 mg PO DAILY [facility] Ondansetron HCl (Ondansetron 4 Mg/2 Ml Vial) 4 mg IV Q8H PRN PRN PRN Reason: NAUSEA/VOMITING Sodium Chloride (0.9% Saline Lock 10 Ml Syringe) 10 - 40 ml IV UD PRN PRN Reason: SALINE FLUSH Last Admin: 06/05/20 11:07 Dose: 10 ml Documented by: STROKE Vital Signs/Narrative: Vital Signs Temp Pulse Resp BP Pulse Ox 06/05/20 09:00 98.3 F 81 17 133/72 H 92 Medical Necessity - Tobacco Use Smoking Status: Former smoker Tobacco Use: Cigarettes Assessment/Plan All Active Problems (Last Updated 04/28/20 @ 12:43 by Chanelle White) Pneumonia (Acute) Sepsis (Acute) Lung nodule (Acute) COPD exacerbation (Acute) Acute respiratory failure with hypoxia (Acute) 1. Recurrent pna 2/2 Strep pneumo with bacteremia - continue Rocephin. Pulm/ID following. MRI spine neg for abscess, CT lungs no abscess. Echo pending. Quantiferon pending. Urine antivens negative, resp panel neg, covid neg. He denies lifetime exposure to TB. 2. Acute on chronic hypoxic resp failure 2/2 pna, suspected COPD - prn aerosols, duoneb, Bipap qhs, incentive spirometer. 3. T2DM - SSI 4. Ongoing nicotine abuse - nicotine patch 5. HTN - stable 6. Anx/Dep - prozac 7. lymphoma - hold ibrutinib at this time DVT ppx: SCDs. has hemoptysis This patient was seen by Jovany Guevara PA-C under the supervision of Dr. Faust. <Pamela Faust - Last Filed: 06/05/20 12:46> Vitals/I&O's: Vital Signs Temp Pulse Resp BP Pulse Ox 98.3 F 94 17 133/72 H 92 06/05/20 09:00 06/05/20 11:00 06/05/20 09:00 06/05/20 09:00 06/05/20 09:00 Oxygen Flow Rate (L/min) 10 Oxygen Delivery Method Bi-pap Weight: 88.7 kg Body Mass Index (BMI) 29.2 Intake and Output for Last 24 Hours 06/03/20 06/04/20 06/05/20 23:59 23:59 23:59 Intake Total 755 / 755 3115.83 / 3120.83 1666.67 / 1666.67 Output Total 550 / 550 1200 / 1200 1800 / 1800 Balance 205 / 205 1915.83 / 1920.83 -133.33 / -133.33 Microbiology Past 72 Hours 06/03/20 10:40 Blood Culture (Wb) - Anticubital Left Blood Culture - Final Streptococcus pneumoniae 06/03/20 10:45 Blood Culture (Wb) - Anticubital Right Bacteria Detection (PCR) - Final Strep pneumoniae 06/03/20 10:45 Blood Culture (Wb) - Anticubital Right Blood Culture - Preliminary 06/03/20 18:50 Urine, Clean Catch Legionella Antigen - Final 06/03/20 18:50 Urine, Clean Catch Streptococcus pneumoniae Antigen (M - Final 06/03/20 17:00 Mucosa - Nasopharyngeal Respiratory Panel (PCR) - Final Laboratory Results 06/04/20 04:56: TSH 2.37 06/04/20 12:30: Acid Fast Stain Pending, Miscellaneous Cytology Pending 06/04/20 16:12: POC Glucose 127 H 06/04/20 22:20: POC Glucose 191 H 06/05/20 06:44: POC Glucose 126 H 06/05/20 06:59: Magnesium 2.7 H 06/05/20 06:59: WBC 12.1 H, RBC 3.13 L, Hgb 10.0 L, Hct 32.8 L, MCV 104.8 H, MCH 31.9, MCHC 30.5 L, RDW Std Deviation 55.8 H, RDW Coeff of Renee 14.4, Plt Count 147 L, MPV 10.5, Immature Gran % (Auto) 4.000 H, Neut % (Auto) 82.3 H, Lymph % (Auto) 3.8 L, [place] % (Auto) 9.3, Eos % (Auto) 0.3, Baso % (Auto) 0.3, Absolute Neuts (auto) 10.0 H, Absolute Lymphs (auto) 0.46 L, Nucleated RBC % 0.2 06/05/20 06:59: PT 13.6, INR 1.1, APTT 26.2 06/05/20 06:59: Sodium 142, Potassium 3.9, Chloride 107, Carbon Dioxide 33.0 H, Anion Gap 2 L, BUN 12, Creatinine 0.39 L, Estim Creat Clear Calc 197.31, Est GFR (MDRD) Af Amer 289, Est GFR (MDRD) Non-Af 239, BUN/Creatinine Ratio 30.5 H, Glucose 126 H, Calcium 8.0 L, Total Bilirubin 0.30, AST 29, ALT 28, Alkaline Phosphatase 162 H, Total Protein 5.1 L, Albumin 2.0 L, Globulin 3.1, Albumin/Globulin Ratio 0.6 L 06/05/20 11:12: POC Glucose 143 H Current Medications Acetaminophen (Acetaminophen 325 Mg Tablet) 650 mg PO Q6H PRN PRN PRN Reason: Pain Score 1-10/Temp > 100.7 F Last Admin: 06/04/20 22:15 Dose: 650 mg Documented by: Albuterol Sulfate (Albuterol 2.5 Mg/3 Ml Vial.Neb.) 2.5 mg INHALATION Q4H PRN PRN Reason: SOB &/OR WHEEZING Albuterol/Ipratropium (Ipratropium/Albuterol Sulfate 3 Ml Ampul.Neb) 3 ml INHALATION Q4HWA.RT [facility] Amlodipine Besylate (Amlodipine 10 Mg Tablet) 10 mg PO DAILY [facility] Last Admin: 06/05/20 09:11 Dose: 10 mg Documented by: Aspirin (Aspirin E.C. 81 Mg Tablet) [facility] Last Admin: 06/05/20 09:23 Dose: 81 mg Documented by: Atorvastatin Calcium (Atorvastatin Calcium 20 Mg Tablet) 20 mg PO QHS [facility] Last Admin: 06/04/20 22:15 Dose: 20 mg Documented by: Dextrose (Dextrose 50%-Water 25 Gm/50 Ml Disp.Syrin) 0 gm IV X1 PRN; Protocol PRN Reason: Hypoglycemia Fluoxetine HCl (Fluoxetine 20 Mg Capsule) 40 mg PO DAILY [facility] Last Admin: 06/05/20 09:11 Dose: 40 mg Documented by: Gabapentin (Gabapentin 300 Mg Capsule) 300 mg PO TIDCM [facility] Last Admin: 06/05/20 11:10 Dose: 300 mg Documented by: Glucagon (Glucagon 1 Mg/Ml Syringe) 1 mg IM .X1 PRN PRN Reason: Hypoglycemia Ceftriaxone Sodium 2 gm/ (Sodium Chloride) 50 mls @ 100 mls/hr IV Q24 [facility] Stop: 06/07/20 10:29 Last Infusion: 06/05/20 11:34 Dose: Infused Documented by: Insulin Human Lispro (Insulin Lispro 100 Unit/Ml Insuln.Pen) 0 unit SC ACHS [facility]; Protocol Last Admin: 06/05/20 11:13 Dose: Not Given Documented by: Losartan Potassium (Losartan Potassium 100 Mg Tablet) 100 mg PO DAILY [facility] Last Admin: 06/05/20 09:12 Dose: 100 mg Documented by: Melatonin (Melatonin 10 Mg Tablet) 15 mg PO QHS [facility] Last Admin: 06/04/20 22:15 Dose: 15 mg Documented by: Nicotine (Nicotine 14 Mg Patch) 14 mg TD DAILY [facility] Last Admin: 06/05/20 09:19 Dose: 14 mg Documented by: Non-Formulary Medication (Ibrutinib) 420 mg PO DAILY [facility] Ondansetron HCl (Ondansetron 4 Mg/2 Ml Vial) 4 mg IV Q8H PRN PRN PRN Reason: NAUSEA/VOMITING Sodium Chloride (0.9% Saline Lock 10 Ml Syringe) 10 - 40 ml IV UD PRN PRN Reason: SALINE FLUSH Last Admin: 06/05/20 11:07 Dose: 10 ml Documented by: STROKE Vital Signs/Narrative: Vital Signs Temp Pulse Resp BP Pulse Ox 06/05/20 11:00 94 06/05/20 09:00 98.3 F 81 17 133/72 H 92 Assessment/Plan This patient was seen in conjunction with SHAYY Draper. I have independently interviewed and examined the patient and reviewed pertinent historical, laboratory, and other data. Please refer to SHAYY Draper note for his patient's presentation, findings, and recommendations. I have reviewed and his note and concur with his documentation Patient was seen and examined. He continues to have some bloody sputum although reduced in quantity. He developed A. fib with RVR and had a Cardizem bolus with drip. He converted to normal sinus rhythm at 0045. Patient is upset that he could not take his Imbruvica which his brought. Discussed with pharmacy, medication is in an old bottle and cannot dispense out of the old bottle. Discussed with patient that we should hold off on this medication was treating infection aggressively. He feels some tightness in his chest but denied any fever or chills. He appears to have done well on BiPAP but desaturates off on room air Physical exam: General: Alert, Oriented x3, Cooperative, No apparent distress, on Bipap HEENT: Atraumatic, PERRLA, EOMI, Normocephalic Oral: Moist Mucosa Neck: Supple, No JVD Lungs: Normal air movement, No rhonchi, No wheeze, No rales, Diminished Cardiovascular: Regular Rhythm, Normal S1, Normal S2, No murmurs, Tachycardic Abdomen: Soft, Non Tender, Non-Distended, No Hepato-splenomegaly Extremities: No edema, Capillary Refill Less than 3 Seconds Skin: No rashes, No breakdown Neurological: Neuro grossly intact, Sensory exam intact to light touch and pain Psych/Mental Status: Normal Affect, Appropriate ASSESSMENT: 1. Acute on chronic respiratory failure, worsening 2. Recurrent strep pneumonia 3. Hemoptysis 4. Streptococcus bacteremia 5. Type II DM 6. Hypertension 7. Anxiety/depression 8. Nicotine dependence Plan: We will continue on negative pressure isolation We will start Solu-Medrol as patient's respiratory status is worsening Continue on IV ceftriaxone Continue on breathing treatments I discussed CODE STATUS with patient. I went on to explain in details the various types of CODE STATUS-full code, DNR CCA, DNR CC. Patient wants to be full code and kept on life support if needed for a while pending his making decisions on keeping him on life support or not Time spent discussing CODE STATUS 18 minutes Inpatient E&M: [id number] [facility] Hosp L3 Procedures: [id number] Advncd Care Plan 30 Min
--- NOTE | 2020-06-05 12:02 | US_ITS ---
STUDY: SUPERFICIAL ULTRASOUND - RIGHT CHEST REASON FOR EXAM: Male, 60 years old. PLEURAL EFFUSION-rt TECHNIQUE: A superficial ultrasound was performed with real-time and static carrasco-scale imaging. COMPARISON: None. FINDINGS: Sonographic appearance of lung consolidation with no identified pleural effusion. Pulmonology doctor was available during the scan and agreed US/Chest IMPRESSION: As above Electronically Signed: Merlin Hebert DO at 8:07 EST Tel , Service support ,
--- NOTE | 2020-06-05 12:04 | PCM.PN.PUL ---
Patient Problems: Active and Suspected Problems (Last Updated 04/28/20 @ 12:43 by Chanelle White) Pneumonia (Acute) Sepsis (Acute) COPD exacerbation (Acute) Subjective: Patient was some difficulty with worsening hypoxia overnight. Patient has improved this morning. Patient continues to have scant hemoptysis. Patient reports he feels subjectively improved compared to yesterday. Patient is not reporting chest pain. - Physical Exam Vitals/I&O's: Vital Signs Temp Pulse Resp BP Pulse Ox 36.8 C 94 17 133/72 H 92 06/05/20 09:00 06/05/20 11:00 06/05/20 09:00 06/05/20 09:00 06/05/20 09:00 Oxygen Flow Rate (L/min) 10 Oxygen Delivery Method Bi-pap Weight: 88.7 kg Body Mass Index (BMI) 29.2 Intake and Output for Last 24 Hours 06/03/20 06/04/20 06/05/20 23:59 23:59 23:59 Intake Total 755 / 755 3115.83 / 3120.83 1666.67 / 1666.67 Output Total 550 / 550 1200 / 1200 900 / 900 Balance 205 / 205 1915.83 / 1920.83 766.67 / 766.67 General: Alert, Oriented x3, Cooperative, No apparent distress, - - No conversational dyspnea. Obese. HEENT: Atraumatic, PERRLA, EOMI, Normocephalic, - Oral: Moist Mucosa, No Gingival or Mucosal Lesions/ Ulcerations Neck: Supple, No JVD, No Nodes, Trachea Midline Lungs: No wheeze, No rales, Diminished - Right apex, Rhonchi - Right base Cardiovascular: Regular rate, Regular Rhythm, Normal S1, Normal S2, No murmurs, No rub noted, No Gallop Abdomen: Bowel Sounds Present, Soft, Non Tender, Non-Distended, Obese Extremities: No clubbing, No cyanosis, Edema - Trace lower extremity Skin: No rashes, No breakdown Musculoskeletal: No Tenderness to Palpation of Joints or Extremities Lymphatic: No Cervical, Supraclavicular, or Inguinal Adenopathy Neurological: Cranial nerves II-XII grossly intact, Neuro grossly intact, Motor Exam 5/5 strength throughout Psych/Mental Status: Alert and oriented to time, place, person, mood and affect Microbiology Past 72 Hours 06/03/20 10:40 Blood Culture (Wb) - Anticubital Left Blood Culture - Final Streptococcus pneumoniae 06/03/20 10:45 Blood Culture (Wb) - Anticubital Right Bacteria Detection (PCR) - Final Strep pneumoniae 06/03/20 10:45 Blood Culture (Wb) - Anticubital Right Blood Culture - Preliminary 06/03/20 18:50 Urine, Clean Catch Legionella Antigen - Final 06/03/20 18:50 Urine, Clean Catch Streptococcus pneumoniae Antigen (M - Final 06/03/20 17:00 Mucosa - Nasopharyngeal Respiratory Panel (PCR) - Final Laboratory Results 06/04/20 04:56: TSH 2.37 06/04/20 12:05: TB Test (QFT) Nil Pending, TB Test (QFT) Mitogen Pending, TB Test (QFT) Ag 1 Pending, TB Test (QFT) Ag 2 Pending, TB Test (QFT) Pending, TB Positive Criteria Pending 06/04/20 12:30: Acid Fast Stain Pending, Miscellaneous Cytology Pending 06/04/20 16:12: POC Glucose 127 H 06/04/20 22:20: POC Glucose 191 H 06/05/20 06:44: POC Glucose 126 H 06/05/20 06:59: Magnesium 2.7 H 06/05/20 06:59: WBC 12.1 H, RBC 3.13 L, Hgb 10.0 L, Hct 32.8 L, MCV 104.8 H, MCH 31.9, MCHC 30.5 L, RDW Std Deviation 55.8 H, RDW Coeff of Renee 14.4, Plt Count 147 L, MPV 10.5, Immature Gran % (Auto) 4.000 H, Neut % (Auto) 82.3 H, Lymph % (Auto) 3.8 L, [place] % (Auto) 9.3, Eos % (Auto) 0.3, Baso % (Auto) 0.3, Absolute Neuts (auto) 10.0 H, Absolute Lymphs (auto) 0.46 L, Nucleated RBC % 0.2 06/05/20 06:59: PT 13.6, INR 1.1, APTT 26.2 06/05/20 06:59: Sodium 142, Potassium 3.9, Chloride 107, Carbon Dioxide 33.0 H, Anion Gap 2 L, BUN 12, Creatinine 0.39 L, Estim Creat Clear Calc 197.31, Est GFR (MDRD) Af Amer 289, Est GFR (MDRD) Non-Af 239, BUN/Creatinine Ratio 30.5 H, Glucose 126 H, Calcium 8.0 L, Total Bilirubin 0.30, AST 29, ALT 28, Alkaline Phosphatase 162 H, Total Protein 5.1 L, Albumin 2.0 L, Globulin 3.1, Albumin/Globulin Ratio 0.6 L 06/05/20 11:12: POC Glucose 143 H Current Medications Acetaminophen (Acetaminophen 325 Mg Tablet) 650 mg PO Q6H PRN PRN PRN Reason: Pain Score 1-10/Temp > 100.7 F Last Admin: 06/04/20 22:15 Dose: 650 mg Documented by: Albuterol Sulfate (Albuterol 2.5 Mg/3 Ml Vial.Neb.) 2.5 mg INHALATION Q4H PRN PRN Reason: SOB &/OR WHEEZING Albuterol/Ipratropium (Ipratropium/Albuterol Sulfate 3 Ml Ampul.Neb) 3 ml INHALATION Q4HWA.RT TAMMY Amlodipine Besylate (Amlodipine 10 Mg Tablet) 10 mg PO DAILY [facility] Last Admin: 06/05/20 09:11 Dose: 10 mg Documented by: Aspirin (Aspirin E.C. 81 Mg Tablet) 81 mg PO DAILYCM [facility] Last Admin: 06/05/20 09:23 Dose: 81 mg Documented by: Atorvastatin Calcium (Atorvastatin Calcium 20 Mg Tablet) 20 mg PO QHS [facility] Last Admin: 06/04/20 22:15 Dose: 20 mg Documented by: Dextrose (Dextrose 50%-Water 25 Gm/50 Ml Disp.Syrin) 0 gm IV X1 PRN; Protocol PRN Reason: Hypoglycemia Fluoxetine HCl (Fluoxetine 20 Mg Capsule) 40 mg PO DAILY [facility] Last Admin: 06/05/20 09:11 Dose: 40 mg Documented by: Gabapentin (Gabapentin 300 Mg Capsule) 300 mg PO TIDCM [facility] Last Admin: 06/05/20 11:10 Dose: 300 mg Documented by: Glucagon (Glucagon 1 Mg/Ml Syringe) 1 mg IM .X1 PRN PRN Reason: Hypoglycemia Ceftriaxone Sodium 2 gm/ (Sodium Chloride) 50 mls @ 100 mls/hr IV Q24 [facility] Stop: 06/07/20 10:29 Last Infusion: 06/05/20 11:34 Dose: Infused Documented by: Insulin Human Lispro (Insulin Lispro 100 Unit/Ml Insuln.Pen) 0 unit SC ACHS [facility]; Protocol Last Admin: 06/05/20 11:13 Dose: Not Given Documented by: Losartan Potassium (Losartan Potassium 100 Mg Tablet) 100 mg PO DAILY [facility] Last Admin: 06/05/20 09:12 Dose: 100 mg Documented by: Melatonin (Melatonin 10 Mg Tablet) 15 mg PO QHS [facility] Last Admin: 06/04/20 22:15 Dose: 15 mg Documented by: Nicotine (Nicotine 14 Mg Patch) 14 mg TD DAILY [facility] Last Admin: 06/05/20 09:19 Dose: 14 mg Documented by: Non-Formulary Medication (Ibrutinib) 420 mg PO DAILY [facility] Ondansetron HCl (Ondansetron 4 Mg/2 Ml Vial) 4 mg IV Q8H PRN PRN PRN Reason: NAUSEA/VOMITING Sodium Chloride (0.9% Saline Lock 10 Ml Syringe) 10 - 40 ml IV UD PRN PRN Reason: SALINE FLUSH Last Admin: 06/05/20 11:07 Dose: 10 ml Documented by: Clinical Impression(s) from Imaging Studies Chest CT 06/04/20 16:00 IMPRESSION: Dense right lower lobe infiltrate with associated partially loculated right pleural effusion. Mild left lower lobe atelectasis or infiltrate No evidence for pulmonary abscess Electronically Signed: Corwin Montenegro MD at 17:51 EST , Service support , Lumbar Spine MRI 06/04/20 16:01 IMPRESSION: 1. Moderately severe multilevel degenerative disc disease and degenerative arthropathy of the lumbar spine with neural foraminal narrowing and central acquired canal stenosis as described. 2. 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 3. 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 Electronically Signed: Ashley Gore MD at 23:49 EST , Service support , Medical Necessity - Tobacco Use Smoking Status: Former smoker Tobacco Use: Cigarettes Assessment/Plan All Active Problems (Last Updated 04/28/20 @ 12:43 by Chanelle White) Pneumonia (Acute) Sepsis (Acute) Lung nodule (Acute) COPD exacerbation (Acute) Acute respiratory failure with hypoxia (Acute) RECOMMENDATIONS: 1. Continue current antibiotics 2. Arrange for diagnostic and therapeutic thoracentesis 3. Wean oxygen as tolerated 4. Consider prednisone therapy if respiratory status decompensates 5. Continue to hold anticoagulation until diagnostic procedure can be completed IMPRESSIONS: 1. Severe sepsis secondary to pneumococcal pneumonia in the setting of chronic respiratory failure secondary to probable COPD On previous hospitalization, patient did grow a pneumococcus from the sputum that was treated with Levaquin therapy. This is rapid turnaround for pneumococcus pneumonia (3 weeks). Patient may have a parapneumonic effusion versus empyema. Thoracentesis will be ordered. Patient is reporting subjective improvement in overall condition. We will also add vest therapy to help for recruitment of right lower lobe. Would continue to hold anticoagulation as patient will require diagnostic and therapeutic thoracentesis. 2. Probable COPD with history of tobacco use Patient has not completed pulmonary function test for quantification clarification of lung function. Patient does not have significant wheezing on exam, so okay to start off of steroids for now. Could add Pulmicort initially. Would consider bronchodilators. Nicotine patch would be helpful. Patient was on 3 L nasal cannula at baseline. Patient with only a slight change at this time despite infiltrates on chest x-ray. 3. Diabetes mellitus type 2/anxiety/depression/obesity/hypertension/hyperlipidemia/repeated hospitalizations Complicates care, management, recovery and prognosis. Agree with using sliding scale instead of Metformin. Patient can likely be continued on current antihypertensive regimen. Would monitor renal function. Inpatient E&M: 113[address] [facility] Hosp L3
[2020-06-05] MEDS: Ipratropium/Albuterol Sulfate 3 ML AMPUL.NEB INHALATION ×3 (15:44→23:09)
[2020-06-05] MEDS: Acetaminophen 325 MG Tablet 650 MG PO (16:10)
[2020-06-05] MEDS: Insulin Lispro 100 UNIT/ML INSULN.PEN SC ×2 (16:11→22:25)
[2020-06-05 16:50] LABS: Bedside Glucose 239 mg/dL (70-110)
[2020-06-05] MEDS: MELATONIN 10 MG TABLET 15 MG PO (22:25)
[2020-06-05] MEDS: Atorvastatin Calcium 20 MG Tablet PO (22:26)
[2020-06-05 22:40] LABS: Bedside Glucose 253 mg/dL (70-110)
[2020-06-06] VITALS (15 sets, daily range): BP systolic 105–137; BP diastolic 69–77; PULSE 70–133; RESP 12–20; TEMP 36.6–36.8; O2SAT 92–96
[2020-06-06] MEDS: Ipratropium/Albuterol Sulfate 3 ML AMPUL.NEB INHALATION ×4 (06:43→19:35)
[2020-06-06] MEDS: 0.9% Saline Lock 10 ML Syringe IV ×4 (06:55→21:55)
[2020-06-06] MEDS: Insulin Lispro 100 UNIT/ML INSULN.PEN SC ×4 (06:57→21:52)
[2020-06-06 07:06] LABS: Bedside Glucose 187 mg/dL (70-110)
[2020-06-06 07:33] LABS: ALB/GLOB Ratio 0.5 RATIO (0.9-2.4); Globulin 4.5 g/dL (2.2-4.2); LDH 181 U/L (87-241); Protein, Total 6.6 g/dL (6.4-8.2)
[2020-06-06 08:53] LABS: Hematocrit 34.1 % (40-54); Hemoglobin 10.5 g/dL (13.0-16.5); Mean Corp Hgb Conc 30.8 g/dL (32-36); Mean Corpuscular Hgb 32.2 pg (27.0-32.0); Mean Corpuscular Volume 104.6 fL (80-94); Mean Platelet Vol. 10.8 fl (6.2-12.0); POSITIVE COUNT YES; POSITIVE DIFFERENTIAL YES; POSITIVE MORPHOLOGY YES; Platelet Count 209 K/mm3 (150-450); RBC Distribution Width SD 54.9 fl (35.1-43.9); Red Blood Count 3.26 M/mm3 (4.6-6.2)
[2020-06-06] MEDS: Furosemide 40 MG/4 ML Vial IV (09:08)
[2020-06-06] MEDS: Acetaminophen 325 MG Tablet 650 MG PO ×2 (09:08→16:33)
[2020-06-06] MEDS: FLUoxetine 20 MG Capsule 40 MG PO (09:09)
[2020-06-06] MEDS: Aspirin E.C. 81 MG Tablet PO (09:09)
[2020-06-06] MEDS: Gabapentin 300 MG Capsule PO ×3 (09:09→16:30)
[2020-06-06] MEDS: Losartan Potassium 100 MG Tablet PO (09:09)
[2020-06-06] MEDS: amLODIPine 10 MG Tablet PO (09:09)
[2020-06-06 09:10] LABS: ALB/GLOB Ratio 0.5 RATIO (0.9-2.4); AST(SGOT) 75 U/L (15-37); Alanine Aminotransfer ALT/SGPT 82 U/L (16-61); Albumin, Serum 2.1 g/dL (3.2-5.0); Alkaline Phosphatase 251 U/L (45-117); Anion Gap 3 (5-15); BUN 15 mg/dL (7-18); BUN/Creat Ratio 29.7 RATIO (10-20); Chloride 103 mmol/L (98-107); EST Glomerular Filtration Rate 179 mL/min (>60); Est Glom Filt Rate - Afr Amer 216 mL/min (>60); Globulin 4.5 g/dL (2.2-4.2); Glucose 179 mg/dL (74-106); Potassium 4.1 mmol/L (3.5-5.1); Protein, Total 6.6 g/dL (6.4-8.2); Sodium Level 140 mmol/L (136-145)
[2020-06-06 09:35] LABS: Differential Indicated MANUAL DIFF; Lymphocyte 6 % (19-41); Monocyte 5 % (0-10); Neutrophil-Band 11 % (0-5); Neutrophil-Segmented 78 % (47-70); Nucleated Red Bld Cells,Manual 1 % (0-5); Total Cells Counted 100 (MANUAL DIFF)
[2020-06-06 09:36] LABS: Absolute Lymphocyte Count 0.54 X10^3/uL (0.83-4.51)
[2020-06-06 09:37] LABS: Platelet Estimate ADEQUATE (ADEQ)
[2020-06-06 09:38] LABS: Hypochromasia 1+; Macrocytosis 1+; Stomatocyte 1+
--- NOTE | 2020-06-06 11:45 | PCM.PN.PUL ---
Patient Problems: Active and Suspected Problems (Last Updated 04/28/20 @ 12:43 by Chanelle White) Pneumonia (Acute) Sepsis (Acute) COPD exacerbation (Acute) Subjective: Patient did okay overnight. Patient reports he feels subjectively improved compared to yesterday. Patient has had a significant increase in oxygen demands. Patient continues to have a significant productive cough. Objective: Effusion personally inspected myself using ultrasound at the bedside. Appears loculated and organized with an appearance similar to liver density - Physical Exam Vitals/I&O's: Vital Signs Temp Pulse Resp BP Pulse Ox 36.7 C 83 18 135/74 H 95 06/06/20 09:08 06/06/20 10:20 06/06/20 10:20 06/06/20 09:08 06/06/20 09:08 Oxygen Flow Rate (L/min) 10 Oxygen Delivery Method Nasal Cannula Weight: 88.7 kg Body Mass Index (BMI) 29.2 Intake and Output for Last 24 Hours 06/04/20 06/05/20 06/06/20 23:59 23:59 23:59 Intake Total 3115.83 / 3120.83 2026.67 / 2386.67 1060 / 1060 Output Total 1200 / 1200 2450 / 2600 1575 / 1575 Balance 1915.83 / 1920.83 -423.33 / -213.33 -515 / -515 General: Alert, Oriented x3, Cooperative, No apparent distress, - - Appears slightly ill HEENT: Atraumatic, PERRLA, EOMI, Normocephalic Oral: Moist Mucosa, No Gingival or Mucosal Lesions/ Ulcerations Neck: Supple, No JVD, No Nodes, Trachea Midline Lungs: No rales, Diminished - Right greater than left, Wheezes Cardiovascular: Regular rate, Regular Rhythm, Normal S1, Normal S2, No murmurs, No rub noted, No Gallop Abdomen: Bowel Sounds Present, Soft, Non Tender, Non-Distended Extremities: No clubbing, No cyanosis, No edema, Capillary Refill Less than 3 Seconds Skin: No rashes, No breakdown Musculoskeletal: No Tenderness to Palpation of Joints or Extremities Lymphatic: No Cervical, Supraclavicular, or Inguinal Adenopathy Neurological: Cranial nerves II-XII grossly intact, Neuro grossly intact, Motor Exam 5/5 strength throughout Psych/Mental Status: Alert and oriented to time, place, person, mood and affect Microbiology Past 72 Hours 06/04/20 12:30 Sputum, Expectorated/Coughed Acid Fast Bacilli Smear - Final 06/03/20 10:45 Blood Culture (Wb) - Anticubital Right Bacteria Detection (PCR) - Final Strep pneumoniae 06/03/20 10:45 Blood Culture (Wb) - Anticubital Right Blood Culture - Final Streptococcus pneumoniae 06/03/20 10:40 Blood Culture (Wb) - Anticubital Left Blood Culture - Final Streptococcus pneumoniae 06/03/20 18:50 Urine, Clean Catch Legionella Antigen - Final 06/03/20 18:50 Urine, Clean Catch Streptococcus pneumoniae Antigen (M - Final 06/03/20 17:00 Mucosa - Nasopharyngeal Respiratory Panel (PCR) - Final Laboratory Results 06/05/20 16:09: POC Glucose 239 H 06/05/20 22:25: POC Glucose 253 H 06/06/20 06:33: Lactate Dehydrogenase 181, Total Protein 6.6, Globulin 4.5 H, Albumin/Globulin Ratio 0.5 L 06/06/20 06:33: WBC 9.0, RBC 3.26 L, Hgb 10.5 L, Hct 34.1 L, MCV 104.6 H, MCH 32.2 H, MCHC 30.8 L, RDW Std Deviation 54.9 H, RDW Coeff of Renee 14.0, Plt Count 209, MPV 10.8, Neut % (Auto) Not Reportable, Absolute Neuts (auto) 8.0 H, Absolute Lymphs (auto) 0.54 L, Total Counted 100, Neutrophils % (Manual) 78 H, Band Neutrophils % 11 H, Lymphocytes % (Manual) 6 L, Monocytes % (Manual) 5, Nucleated RBCs/100 WBC 1, Diff Path Review November, Platelet Estimate ADEQUATE, Hypochromasia 1+, Macrocytosis 1+, Stomatocytes 1+ 06/06/20 06:33: Sodium 140, Potassium 4.1, Chloride 103, Carbon Dioxide 34.0 H, Anion Gap 3 L, BUN 15, Creatinine 0.50 L, Estim Creat Clear Calc 153.90, Est GFR (MDRD) Af Amer 216, Est GFR (MDRD) Non-Af 179, BUN/Creatinine Ratio 29.7 H, Glucose 179 H, Calcium 9.0, Total Bilirubin 0.30, AST 75 H, ALT 82 H, Alkaline Phosphatase 251 H, Total Protein 6.6, Albumin 2.1 L, Globulin 4.5 H, Albumin/Globulin Ratio 0.5 L 06/06/20 06:57: POC Glucose 187 H Current Medications Acetaminophen (Acetaminophen 325 Mg Tablet) 650 mg PO Q6H PRN PRN PRN Reason: Pain Score 1-10/Temp > 100.7 F Last Admin: 06/06/20 09:08 Dose: 650 mg Documented by: Albuterol Sulfate (Albuterol 2.5 Mg/3 Ml Vial.Neb.) 2.5 mg INHALATION Q4H PRN PRN Reason: SOB &/OR WHEEZING Albuterol/Ipratropium (Ipratropium/Albuterol Sulfate 3 Ml Ampul.Neb) 3 ml INHALATION Q4HWA.RT [facility] Last Admin: 06/06/20 10:20 Dose: 3 ml Documented by: Amlodipine Besylate (Amlodipine 10 Mg Tablet) 10 mg PO DAILY [facility] Last Admin: 06/06/20 09:09 Dose: 10 mg Documented by: Aspirin (Aspirin E.C. 81 Mg Tablet) 81 mg PO DAILYCM [facility] Last Admin: 06/06/20 09:09 Dose: 81 mg Documented by: Atorvastatin Calcium (Atorvastatin Calcium 20 Mg Tablet) 20 mg PO QHS [facility] Last Admin: 06/05/20 22:26 Dose: 20 mg Documented by: Dextrose (Dextrose 50%-Water 25 Gm/50 Ml Disp.Syrin) 0 gm IV X1 PRN; Protocol PRN Reason: Hypoglycemia Fluoxetine HCl (Fluoxetine 20 Mg Capsule) 40 mg PO DAILY [facility] Last Admin: 06/06/20 09:09 Dose: 40 mg Documented by: Gabapentin (Gabapentin 300 Mg Capsule) 300 mg PO TIDCM [facility] Last Admin: 06/06/20 11:29 Dose: 300 mg Documented by: Glucagon (Glucagon 1 Mg/Ml Syringe) 1 mg IM .X1 PRN PRN Reason: Hypoglycemia Ceftriaxone Sodium 2 gm/ (Sodium Chloride) 50 mls @ 100 mls/hr IV Q24 [facility] Stop: 06/07/20 10:29 Last Infusion: 06/06/20 09:44 Dose: Infused Documented by: Insulin Human Lispro (Insulin Lispro 100 Unit/Ml Insuln.Pen) 0 unit SC ACHS [facility]; Protocol Last Admin: 06/06/20 11:37 Dose: 4 u Documented by: Losartan Potassium (Losartan Potassium 100 Mg Tablet) 100 mg PO DAILY [facility] Last Admin: 06/06/20 09:09 Dose: 100 mg Documented by: Melatonin (Melatonin 10 Mg Tablet) 15 mg PO QHS [facility] Last Admin: 06/05/20 22:25 Dose: 15 mg Documented by: Methylprednisolone (Methylprednisolone 40 Mg/Ml Vial) 40 mg IV Q8 [facility] Last Admin: 06/06/20 06:55 Dose: 40 mg Documented by: Nicotine (Nicotine 14 Mg Patch) 14 mg TD DAILY [facility] Last Admin: 06/06/20 09:09 Dose: 14 mg Documented by: Non-Formulary Medication (Ibrutinib) 420 mg PO DAILY [facility] Ondansetron HCl (Ondansetron 4 Mg/2 Ml Vial) 4 mg IV Q8H PRN PRN PRN Reason: NAUSEA/VOMITING Sodium Chloride (0.9% Saline Lock 10 Ml Syringe) 10 - 40 ml IV UD PRN PRN Reason: SALINE FLUSH Last Admin: 06/06/20 09:09 Dose: 10 ml Documented by: Medical Necessity - Tobacco Use Smoking Status: Former smoker Tobacco Use: Cigarettes Assessment/Plan All Active Problems (Last Updated 04/28/20 @ 12:43 by Chanelle White) Pneumonia (Acute) Sepsis (Acute) Lung nodule (Acute) COPD exacerbation (Acute) Acute respiratory failure with hypoxia (Acute) RECOMMENDATIONS: 1. Continue current antibiotics 2. Arrange for transfer to tertiary center for cardiothoracic evaluation 3. Wean oxygen as tolerated 4. Continue steroids for now 5. Continue to hold anticoagulation until diagnostic procedure can be completed IMPRESSIONS: 1. Severe sepsis secondary to pneumococcal pneumonia in the setting of chronic respiratory failure secondary to probable COPD On previous hospitalization, patient did grow a pneumococcus from the sputum that was treated with Levaquin therapy. This is rapid turnaround for pneumococcus pneumonia (3 weeks). Effusion appears to be very organized on ultrasound. Clinical suspicion for empyema. Patient's oxygen status has continued to deteriorate. Interventions would include a VATS procedure versus chest tube with fibrinolytics and DNase, but both would likely be best performed with a cardiothoracic surgery backup. Discussed with case management, hospitalist and patient and he would like to be transferred to [place] or [place] if possible. 2. Probable COPD with history of tobacco use Patient has not completed pulmonary function test for quantification clarification of lung function. Continue steroid therapy. Nicotine patch would be helpful. Patient was on 3 L nasal cannula at baseline following last hospitalization. 3. Diabetes mellitus type 2/anxiety/depression/obesity/hypertension/hyperlipidemia/repeated hospitalizations Complicates care, management, recovery and prognosis. Agree with using sliding scale instead of Metformin given highly variable clinical course. Patient can likely be continued on current antihypertensive regimen. Would monitor renal function. Inpatient E&M: 49575 Subs Hosp L3
[2020-06-06 11:51] LABS: Bedside Glucose 237 mg/dL (70-110)
--- NOTE | 2020-06-06 12:01 | PCM.PN.HOSP ---
<Jovany Guevara - Last Filed: 06/06/20 12:01> Patient Problems: Active and Suspected Problems (Last Updated 04/28/20 @ 12:43 by Chanelle White) Pneumonia (Acute) Sepsis (Acute) COPD exacerbation (Acute) Reason for Visit: SOB Subjective: ongoing SOB, high O2 requirement. Contineus to have hemoptysis. Denies chills. No CP. Vitals/I&O's: Vital Signs Temp Pulse Resp BP Pulse Ox 98.1 F 83 18 135/74 H 95 06/06/20 09:08 06/06/20 10:20 06/06/20 10:20 06/06/20 09:08 06/06/20 09:08 Oxygen Flow Rate (L/min) 10 Oxygen Delivery Method Nasal Cannula Weight: 195 lb 8.8 oz Body Mass Index (BMI) 29.2 Intake and Output for Last 24 Hours 06/04/20 06/05/20 06/06/20 23:59 23:59 23:59 Intake Total 3115.83 / 3120.83 2026.67 / 2386.67 1060 / 1060 Output Total 1200 / 1200 2450 / 2600 1575 / 1575 Balance 1915.83 / 1920.83 -423.33 / -213.33 -515 / -515 General: Alert, Oriented x3, Cooperative HEENT: Atraumatic, PERRLA, EOMI, Normocephalic Neck: Supple, No JVD, Negative Carotid Bruits Lungs: Diminished, Rales - BL bases Cardiovascular: Regular rate, No murmurs Abdomen: Bowel Sounds Present, Soft, Non Tender Extremities: No edema, Capillary Refill Less than 3 Seconds Skin: No rashes, No breakdown Musculoskeletal: No Tenderness to Palpation of Joints or Extremities Neurological: Cranial nerves II-XII grossly intact Psych/Mental Status: Normal Affect, Appropriate, Alert and oriented to time, place, person, mood and affect Microbiology Past 72 Hours 06/04/20 12:30 Sputum, Expectorated/Coughed Acid Fast Bacilli Smear - Final 06/03/20 10:45 Blood Culture (Wb) - Anticubital Right Bacteria Detection (PCR) - Final Strep pneumoniae 06/03/20 10:45 Blood Culture (Wb) - Anticubital Right Blood Culture - Final Streptococcus pneumoniae 11/24/20 10:40 Blood Culture (Wb) - Anticubital Left Blood Culture - Final Streptococcus pneumoniae 06/03/20 18:50 Urine, Clean Catch Legionella Antigen - Final 06/03/20 18:50 Urine, Clean Catch Streptococcus pneumoniae Antigen (M - Final 06/03/20 17:00 Mucosa - Nasopharyngeal Respiratory Panel (PCR) - Final Laboratory Results 06/05/20 16:09: POC Glucose 239 H 06/05/20 22:25: POC Glucose 253 H 06/06/20 06:33: Lactate Dehydrogenase 181, Total Protein 6.6, Globulin 4.5 H, Albumin/Globulin Ratio 0.5 L 06/06/20 06:33: WBC 9.0, RBC 3.26 L, Hgb 10.5 L, Hct 34.1 L, MCV 104.6 H, MCH 32.2 H, MCHC 30.8 L, RDW Std Deviation 54.9 H, RDW Coeff of Renee 14.0, Plt Count 209, MPV 10.8, Neut % (Auto) Not Reportable, Absolute Neuts (auto) 8.0 H, Absolute Lymphs (auto) 0.54 L, Total Counted 100, Neutrophils % (Manual) 78 H, Band Neutrophils % 11 H, Lymphocytes % (Manual) 6 L, Monocytes % (Manual) 5, Nucleated RBCs/100 WBC 1, Diff Path Review November, Platelet Estimate ADEQUATE, Hypochromasia 1+, Macrocytosis 1+, Stomatocytes 1+ 06/06/20 06:33: Sodium 140, Potassium 4.1, Chloride 103, Carbon Dioxide 34.0 H, Anion Gap 3 L, BUN 15, Creatinine 0.50 L, Estim Creat Clear Calc 153.90, Est GFR (MDRD) Af Amer 216, Est GFR (MDRD) Non-Af 179, BUN/Creatinine Ratio 29.7 H, Glucose 179 H, Calcium 9.0, Total Bilirubin 0.30, AST 75 H, ALT 82 H, Alkaline Phosphatase 251 H, Total Protein 6.6, Albumin 2.1 L, Globulin 4.5 H, Albumin/Globulin Ratio 0.5 L 06/06/20 06:57: POC Glucose 187 H 06/06/20 11:36: POC Glucose 237 H Current Medications Acetaminophen (Acetaminophen 325 Mg Tablet) 650 mg PO Q6H PRN PRN PRN Reason: Pain Score 1-10/Temp > 100.7 F Last Admin: 06/06/20 09:08 Dose: 650 mg Documented by: Albuterol Sulfate (Albuterol 2.5 Mg/3 Ml Vial.Neb.) 2.5 mg INHALATION Q4H PRN PRN Reason: SOB &/OR WHEEZING Albuterol/Ipratropium (Ipratropium/Albuterol Sulfate 3 Ml Ampul.Neb) 3 ml INHALATION Q4HWA.RT [facility] Last Admin: 06/06/20 10:20 Dose: 3 ml Documented by: Amlodipine Besylate (Amlodipine 10 Mg Tablet) 10 mg PO DAILY [facility] Last Admin: 06/06/20 09:09 Dose: 10 mg Documented by: Aspirin (Aspirin E.C. 81 Mg Tablet) 81 mg PO DAILYCM [facility] Last Admin: 06/06/20 09:09 Dose: 81 mg Documented by: Atorvastatin Calcium (Atorvastatin Calcium 20 Mg Tablet) 20 mg PO QHS [facility] Last Admin: 06/05/20 22:26 Dose: 20 mg Documented by: Dextrose (Dextrose 50%-Water 25 Gm/50 Ml Disp.Syrin) 0 gm IV X1 PRN; Protocol PRN Reason: Hypoglycemia Fluoxetine HCl (Fluoxetine 20 Mg Capsule) 40 mg PO DAILY [facility] Last Admin: 06/06/20 09:09 Dose: 40 mg Documented by: Gabapentin (Gabapentin 300 Mg Capsule) 300 mg PO TIDCM [facility] Last Admin: 06/06/20 11:29 Dose: 300 mg Documented by: Glucagon (Glucagon 1 Mg/Ml Syringe) 1 mg IM .X1 PRN PRN Reason: Hypoglycemia Ceftriaxone Sodium 2 gm/ (Sodium Chloride) 50 mls @ 100 mls/hr IV Q24 [facility] Stop: 06/07/20 10:29 Last Infusion: 06/06/20 09:44 Dose: Infused Documented by: Insulin Human Lispro (Insulin Lispro 100 Unit/Ml Insuln.Pen) 0 unit SC ACHS [facility]; Protocol Last Admin: 06/06/20 11:37 Dose: 4 u Documented by: Losartan Potassium (Losartan Potassium 100 Mg Tablet) 100 mg PO DAILY [facility] Last Admin: 06/06/20 09:09 Dose: 100 mg Documented by: Melatonin (Melatonin 10 Mg Tablet) 15 mg PO QHS [facility] Last Admin: 06/05/20 22:25 Dose: 15 mg Documented by: Methylprednisolone (Methylprednisolone 40 Mg/Ml Vial) 40 mg IV Q8 [facility] Last Admin: 06/06/20 06:55 Dose: 40 mg Documented by: Nicotine (Nicotine 14 Mg Patch) 14 mg TD DAILY [facility] Last Admin: 06/06/20 09:09 Dose: 14 mg Documented by: Non-Formulary Medication (Ibrutinib) 420 mg PO DAILY [facility] Ondansetron HCl (Ondansetron 4 Mg/2 Ml Vial) 4 mg IV Q8H PRN PRN PRN Reason: NAUSEA/VOMITING Sodium Chloride (0.9% Saline Lock 10 Ml Syringe) 10 - 40 ml IV UD PRN PRN Reason: SALINE FLUSH Last Admin: 06/06/20 09:09 Dose: 10 ml Documented by: STROKE Vital Signs/Narrative: Vital Signs Temp Pulse Resp BP Pulse Ox 06/06/20 10:20 83 18 06/06/20 09:08 98.1 F 80 20 H 135/74 H 95 Medical Necessity - Tobacco Use Smoking Status: Former smoker Tobacco Use: Cigarettes Assessment/Plan All Active Problems (Last Updated 04/28/20 @ 12:43 by Chanelle White) Pneumonia (Acute) Sepsis (Acute) Lung nodule (Acute) COPD exacerbation (Acute) Acute respiratory failure with hypoxia (Acute) 1. Recurrent pna 2/2 Strep pneumo with bacteremia - continue Rocephin. Pulm/ID following. MRI spine neg for abscess, CT lungs no abscess. Echo pending. Quantiferon pending. Urine antivens negative, resp panel neg, covid neg. He denies lifetime exposure to TB. -per pulmonary note today he may need transferred as there is concern for empyema. 2. Acute on chronic hypoxic resp failure 2/2 pna, suspected COPD - prn aerosols, duoneb, Bipap qhs, incentive spirometer. Baseline 3l. On 10lpm high flow cannula this am. 3. T2DM - SSI 4. Ongoing nicotine abuse - nicotine patch 5. HTN - stable 6. Anx/Dep - prozac 7. lymphoma - hold ibrutinib at this time DVT ppx: SCDs. has hemoptysis This patient was seen by Jovany Guevara PA-C under the supervision of Dr. Faust. <G[place]oughkeepsie - Last Filed: 06/06/20 17:47> Vitals/I&O's: Vital Signs Temp Pulse Resp BP Pulse Ox 98.0 F 88 20 H 105/77 94 06/06/20 15:08 06/06/20 15:08 06/06/20 15:08 06/06/20 15:08 06/06/20 15:08 Oxygen Flow Rate (L/min) 10 Oxygen Delivery Method Nasal Cannula Weight: 88.7 kg Body Mass Index (BMI) 29.2 Intake and Output for Last 24 Hours 06/04/20 06/05/20 06/06/20 23:59 23:59 23:59 Intake Total 3115.83 / 3120.83 2026.67 / 2386.67 1060 / 1060 Output Total 1200 / 1200 2450 / 2600 1575 / 1575 Balance 1915.83 / 1920.83 -423.33 / -213.33 -515 / -515 Microbiology Past 72 Hours 06/04/20 12:30 Sputum, Expectorated/Coughed Acid Fast Bacilli Smear - Final 06/03/20 10:45 Blood Culture (Wb) - Anticubital Right Bacteria Detection (PCR) - Final Strep pneumoniae 06/03/20 10:45 Blood Culture (Wb) - Anticubital Right Blood Culture - Final Streptococcus pneumoniae 06/03/20 10:40 Blood Culture (Wb) - Anticubital Left Blood Culture - Final Streptococcus pneumoniae 06/03/20 18:50 Urine, Clean Catch Legionella Antigen - Final 06/03/20 18:50 Urine, Clean Catch Streptococcus pneumoniae Antigen (M - Final 06/03/20 17:00 Mucosa - Nasopharyngeal Respiratory Panel (PCR) - Final Laboratory Results 06/04/20 12:30: Acid Fast Stain SEE PATHOLOGY REPORT, Miscellaneous Cytology SEE PATHOLOGY REPORT 06/05/20 05:00: Acid Fast Stain SEE PATHOLOGY REPORT, Miscellaneous Cytology SEE PATHOLOGY REPORT 06/05/20 22:25: POC Glucose 253 H 06/06/20 06:33: Lactate Dehydrogenase 181, Total Protein 6.6, Globulin 4.5 H, Albumin/Globulin Ratio 0.5 L 06/06/20 06:33: WBC 9.0, RBC 3.26 L, Hgb 10.5 L, Hct 34.1 L, MCV 104.6 H, MCH 32.2 H, MCHC 30.8 L, RDW Std Deviation 54.9 H, RDW Coeff of Renee 14.0, Plt Count 209, MPV 10.8, Neut % (Auto) Not Reportable, Absolute Neuts (auto) 8.0 H, Absolute Lymphs (auto) 0.54 L, Total Counted 100, Neutrophils % (Manual) 78 H, Band Neutrophils % 11 H, Lymphocytes % (Manual) 6 L, Monocytes % (Manual) 5, Nucleated RBCs/100 WBC 1, Diff Path Review May foll, Platelet Estimate ADEQUATE, Hypochromasia 1+, Macrocytosis 1+, Stomatocytes 1+ 06/06/20 06:33: Sodium 140, Potassium 4.1, Chloride 103, Carbon Dioxide 34.0 H, Anion Gap 3 L, BUN 15, Creatinine 0.50 L, Estim Creat Clear Calc 153.90, Est GFR (MDRD) Af Amer 216, Est GFR (MDRD) Non-Af 179, BUN/Creatinine Ratio 29.7 H, Glucose 179 H, Calcium 9.0, Total Bilirubin 0.30, AST 75 H, ALT 82 H, Alkaline Phosphatase 251 H, Total Protein 6.6, Albumin 2.1 L, Globulin 4.5 H, Albumin/Globulin Ratio 0.5 L 06/06/20 06:57: POC Glucose 187 H 06/06/20 11:36: POC Glucose 237 H Current Medications Acetaminophen (Acetaminophen 325 Mg Tablet) 650 mg PO Q6H PRN PRN PRN Reason: Pain Score 1-10/Temp > 100.7 F Last Admin: 06/06/20 16:33 Dose: 650 mg Documented by: Albuterol Sulfate (Albuterol 2.5 Mg/3 Ml Vial.Neb.) 2.5 mg INHALATION Q4H PRN PRN Reason: SOB &/OR WHEEZING Albuterol/Ipratropium (Ipratropium/Albuterol Sulfate 3 Ml Ampul.Neb) 3 ml INHALATION Q4HWA.RT [facility] Last Admin: 06/06/20 14:55 Dose: 3 ml Documented by: Amlodipine Besylate (Amlodipine 10 Mg Tablet) 10 mg PO DAILY [facility] Last Admin: 06/06/20 09:09 Dose: 10 mg Documented by: Aspirin (Aspirin E.C. 81 Mg Tablet) [facility] Last Admin: 06/06/20 09:09 Dose: 81 mg Documented by: Atorvastatin Calcium (Atorvastatin Calcium 20 Mg Tablet) 20 mg PO QHS [facility] Last Admin: 06/05/20 22:26 Dose: 20 mg Documented by: Dextrose (Dextrose 50%-Water 25 Gm/50 Ml Disp.Syrin) 0 gm IV X1 PRN; Protocol PRN Reason: Hypoglycemia Fluoxetine HCl (Fluoxetine 20 Mg Capsule) 40 mg PO DAILY [facility] Last Admin: 06/06/20 09:09 Dose: 40 mg Documented by: Gabapentin (Gabapentin 300 Mg Capsule) 300 mg PO TIDCM [facility] Last Admin: 06/06/20 16:30 Dose: 300 mg Documented by: Glucagon (Glucagon 1 Mg/Ml Syringe) 1 mg IM .X1 PRN PRN Reason: Hypoglycemia Ceftriaxone Sodium 2 gm/ (Sodium Chloride) 50 mls @ 100 mls/hr IV Q24 [facility] Stop: 06/07/20 10:29 Last Infusion: 06/06/20 09:44 Dose: Infused Documented by: Insulin Human Lispro (Insulin Lispro 100 Unit/Ml Insuln.Pen) 0 unit SC ACHS [facility]; Protocol Last Admin: 06/06/20 16:30 Dose: 4 u Documented by: Losartan Potassium (Losartan Potassium 100 Mg Tablet) 100 mg PO DAILY [facility] Last Admin: 06/06/20 09:09 Dose: 100 mg Documented by: Melatonin (Melatonin 10 Mg Tablet) 15 mg PO QHS [facility] Last Admin: 06/05/20 22:25 Dose: 15 mg Documented by: Methylprednisolone (Methylprednisolone 40 Mg/Ml Vial) 40 mg IV Q8 [facility] Last Admin: 06/06/20 13:33 Dose: 40 mg Documented by: Nicotine (Nicotine 14 Mg Patch) 14 mg TD DAILY [facility] Last Admin: 06/06/20 09:09 Dose: 14 mg Documented by: Non-Formulary Medication (Ibrutinib) 420 mg PO DAILY [facility] Ondansetron HCl (Ondansetron 4 Mg/2 Ml Vial) 4 mg IV Q8H PRN PRN PRN Reason: NAUSEA/VOMITING Sodium Chloride (0.9% Saline Lock 10 Ml Syringe) 10 - 40 ml IV UD PRN PRN Reason: SALINE FLUSH Last Admin: 06/06/20 13:33 Dose: 10 ml Documented by: STROKE Vital Signs/Narrative: Vital Signs Temp Pulse Resp BP Pulse Ox 06/06/20 15:08 98.0 F 88 20 H 105/77 94 06/06/20 15:00 88 06/06/20 14:55 84 20 H Assessment/Plan This patient was seen in conjunction with SHAYY Draper. I have independently interviewed and examined the patient and reviewed pertinent historical, laboratory, and other data. Please refer to SHAYY Draper note for his patient's presentation, findings, and recommendations. I have reviewed and his note and concur with his documentation Patient was seen and examined. He appears to be much improved. Remains on 10 L of oxygen. He still having hemoptysis although improved. Physical exam: General: Alert, Oriented x3, Cooperative, No apparent distress, on 10L liters of oxygen HEENT: Atraumatic, PERRLA, EOMI, Normocephalic Oral: Moist Mucosa Neck: Supple, No JVD Lungs: Diminished air entry, rales in the right mid and lower lung zones, Cardiovascular: Regular Rhythm, Normal S1, Normal S2, No murmurs, Tachycardic Abdomen: Soft, Non Tender, Non-Distended, No Hepato-splenomegaly Extremities: No edema, Capillary Refill Less than 3 Seconds Skin: No rashes, No breakdown Neurological: Neuro grossly intact, Sensory exam intact to light touch and pain Psych/Mental Status: Normal Affect, Appropriate ASSESSMENT: 1. Acute on chronic respiratory failure, minimally improved 2. Recurrent strep pneumonia 3. Hemoptysis 4. Streptococcus bacteremia 5. Type II DM 6. Hypertension 7. Anxiety/depression 8. Nicotine dependence 9. Loculated pleural effusion Plan: We will continue on negative pressure isolation Continue to follow-up on TB testing Continue IV ceftriaxone Follow-up on 2D echo Continue Solu-Medrol and breathing treatments Discussed with pulmonology, will transfer to tertiary institution for possible decortication/VATS Inpatient E&M: [id number] [facility] Hosp L2
--- NOTE | 2020-06-06 12:03 | CASEMGMT ---
Insurance review for hospitals In-network with Insurance if transfer is recommended is as follows: [facility], [facility], [facility], [facility], [facility], [facility], [facility] and . Mary TIDWELLN RN CM
--- NOTE | 2020-06-06 15:03 | PN.ID_ITS ---
Patient Problems: Active and Suspected Problems (Last Updated 04/28/20 @ 12:43 by Chanelle White) Pneumonia (Acute) Sepsis (Acute) COPD exacerbation (Acute) Subjective: Feeling a little better, still some cough, no fever, no n/v/d. - Physical Exam Vitals/I&O's: Vital Signs Temp Pulse Resp BP Pulse Ox 98.1 F 83 18 135/74 H 95 06/06/20 09:08 06/06/20 10:20 06/06/20 10:20 06/06/20 09:08 06/06/20 09:08 Oxygen Flow Rate (L/min) 10 Oxygen Delivery Method Nasal Cannula Weight: 88.7 kg Body Mass Index (BMI) 29.2 Intake and Output for Last 24 Hours 06/04/20 06/05/20 06/06/20 23:59 23:59 23:59 Intake Total 3115.83 / 3120.83 2026.67 / 2386.67 1060 / 1060 Output Total 1200 / 1200 2450 / 2600 1575 / 1575 Balance 1915.83 / 1920.83 -423.33 / -213.33 -515 / -515 General: Alert, Cooperative, No apparent distress Lungs: Rhonchi - R base Cardiovascular: Regular rate, Regular Rhythm Abdomen: Soft, Non Tender, Non-Distended Skin: No rashes Microbiology Past 72 Hours 06/04/20 12:30 Sputum, Expectorated/Coughed Acid Fast Bacilli Smear - Final 06/03/20 10:45 Blood Culture (Wb) - Anticubital Right Bacteria Detection (PCR) - Final Strep pneumoniae 06/03/20 10:45 Blood Culture (Wb) - Anticubital Right Blood Culture - Final Streptococcus pneumoniae 06/03/20 10:40 Blood Culture (Wb) - Anticubital Left Blood Culture - Final Streptococcus pneumoniae 06/03/20 18:50 Urine, Clean Catch Legionella Antigen - Final 06/03/20 18:50 Urine, Clean Catch Streptococcus pneumoniae Antigen (M - Final 06/03/20 17:00 Mucosa - Nasopharyngeal Respiratory Panel (PCR) - Final Laboratory Results 06/05/20 16:09: POC Glucose 239 H 06/05/20 22:25: POC Glucose 253 H 06/06/20 06:33: Lactate Dehydrogenase 181, Total Protein 6.6, Globulin 4.5 H, Albumin/Globulin Ratio 0.5 L 06/06/20 06:33: WBC 9.0, RBC 3.26 L, Hgb 10.5 L, Hct 34.1 L, MCV 104.6 H, MCH 32.2 H, MCHC 30.8 L, RDW Std Deviation 54.9 H, RDW Coeff of Renee 14.0, Plt Count 209, MPV 10.8, Neut % (Auto) Not Reportable, Absolute Neuts (auto) 8.0 H, Absolute Lymphs (auto) 0.54 L, Total Counted 100, Neutrophils % (Manual) 78 H, Band Neutrophils % 11 H, Lymphocytes % (Manual) 6 L, Monocytes % (Manual) 5, Nucleated RBCs/100 WBC 1, Diff Path Review November, Platelet Estimate ADEQUATE, Hypochromasia 1+, Macrocytosis 1+, Stomatocytes 1+ 06/06/20 06:33: Sodium 140, Potassium 4.1, Chloride 103, Carbon Dioxide 34.0 H, Anion Gap 3 L, BUN 15, Creatinine 0.50 L, Estim Creat Clear Calc 153.90, Est GFR (MDRD) Af Amer 216, Est GFR (MDRD) Non-Af 179, BUN/Creatinine Ratio 29.7 H, Glucose 179 H, Calcium 9.0, Total Bilirubin 0.30, AST 75 H, ALT 82 H, Alkaline Phosphatase 251 H, Total Protein 6.6, Albumin 2.1 L, Globulin 4.5 H, Albumin/Globulin Ratio 0.5 L 06/06/20 06:57: POC Glucose 187 H 06/06/20 11:36: POC Glucose 237 H Current Medications Acetaminophen (Acetaminophen 325 Mg Tablet) 650 mg PO Q6H PRN PRN PRN Reason: Pain Score 1-10/Temp > 100.7 F Last Admin: 06/06/20 09:08 Dose: 650 mg Documented by: Albuterol Sulfate (Albuterol 2.5 Mg/3 Ml Vial.Neb.) 2.5 mg INHALATION Q4H PRN PRN Reason: SOB &/OR WHEEZING Albuterol/Ipratropium (Ipratropium/Albuterol Sulfate 3 Ml Ampul.Neb) 3 ml INHALATION Q4HWA.RT [facility] Last Admin: 06/06/20 10:20 Dose: 3 ml Documented by: Amlodipine Besylate (Amlodipine 10 Mg Tablet) 10 mg PO DAILY [facility] Last Admin: 06/06/20 09:09 Dose: 10 mg Documented by: Aspirin (Aspirin E.C. 81 Mg Tablet) 81 mg PO DAILYCM [facility] Last Admin: 06/06/20 09:09 Dose: 81 mg Documented by: Atorvastatin Calcium (Atorvastatin Calcium 20 Mg Tablet) 20 mg PO QHS [facility] Last Admin: 06/05/20 22:26 Dose: 20 mg Documented by: Dextrose (Dextrose 50%-Water 25 Gm/50 Ml Disp.Syrin) 0 gm IV X1 PRN; Protocol PRN Reason: Hypoglycemia Fluoxetine HCl (Fluoxetine 20 Mg Capsule) 40 mg PO DAILY [facility] Last Admin: 06/06/20 09:09 Dose: 40 mg Documented by: Gabapentin (Gabapentin 300 Mg Capsule) 300 mg PO TIDCM [facility] Last Admin: 06/06/20 11:29 Dose: 300 mg Documented by: Glucagon (Glucagon 1 Mg/Ml Syringe) 1 mg IM .X1 PRN PRN Reason: Hypoglycemia Ceftriaxone Sodium 2 gm/ (Sodium Chloride) 50 mls @ 100 mls/hr IV Q24 [facility] Stop: 06/07/20 10:29 Last Infusion: 06/06/20 09:44 Dose: Infused Documented by: Insulin Human Lispro (Insulin Lispro 100 Unit/Ml Insuln.Pen) 0 unit SC ACHS [facility]; Protocol Last Admin: 06/06/20 11:37 Dose: 4 u Documented by: Losartan Potassium (Losartan Potassium 100 Mg Tablet) 100 mg PO DAILY [facility] Last Admin: 06/06/20 09:09 Dose: 100 mg Documented by: Melatonin (Melatonin 10 Mg Tablet) 15 mg PO QHS [facility] Last Admin: 06/05/20 22:25 Dose: 15 mg Documented by: Methylprednisolone (Methylprednisolone 40 Mg/Ml Vial) 40 mg IV Q8 [facility] Last Admin: 06/06/20 13:33 Dose: 40 mg Documented by: Nicotine (Nicotine 14 Mg Patch) 14 mg TD DAILY [facility] Last Admin: 06/06/20 09:09 Dose: 14 mg Documented by: Non-Formulary Medication (Ibrutinib) 420 mg PO DAILY [facility] Ondansetron HCl (Ondansetron 4 Mg/2 Ml Vial) 4 mg IV Q8H PRN PRN PRN Reason: NAUSEA/VOMITING Sodium Chloride (0.9% Saline Lock 10 Ml Syringe) 10 - 40 ml IV UD PRN PRN Reason: SALINE FLUSH Last Admin: 06/06/20 13:33 Dose: 10 ml Documented by: Medical Necessity - Tobacco Use Smoking Status: Former smoker Tobacco Use: Cigarettes Route of nutrition/ use of supplements: [] Nutritional Intake: [] IV Site: [] [place] Catheter: [] - Assessment/Plan Antibiotics: [] Assessment/Plan: [] Active and Suspected Problems (Last Updated 04/28/20 @ 12:43 by Chanelle White) Pneumonia (Acute) Sepsis (Acute) COPD exacerbation (Acute) Recurrent s.pneumo infection - MRI showed no osteo in L spine. CT did show concern for abscess/possible empyema. Cont ceftriaxone, stop azithro. AFB of sputum was neg, low suspicion for TB. Covid neg. Transfer planned for thoracic surgery eval. Will follow, d/w Dr. Jamison
[2020-06-06 15:06] LABS: Acid Fast Stain SEE PATHOLOGY REPORT; Cytology, Body Fluid / CSF SEE PATHOLOGY REPORT
[2020-06-06 15:06] LABS: Acid Fast Stain SEE PATHOLOGY REPORT; Cytology, Body Fluid / CSF SEE PATHOLOGY REPORT
[2020-06-06] MEDS: MELATONIN 10 MG TABLET 15 MG PO (21:53)
[2020-06-06] MEDS: Atorvastatin Calcium 20 MG Tablet PO (21:53)
[2020-06-07] VITALS (12 sets, daily range): BP systolic 133–150; BP diastolic 54–85; PULSE 67–90; RESP 12–18; TEMP 36–36.6; O2SAT 93–96
[2020-06-07 00:11] LABS: Bedside Glucose 241 mg/dL (70-110)
[2020-06-07 00:11] LABS: Bedside Glucose 208 mg/dL (70-110)
[2020-06-07] MEDS: 0.9% Saline Lock 10 ML Syringe IV ×2 (05:24→09:00)
[2020-06-07] MEDS: Insulin Lispro 100 UNIT/ML INSULN.PEN SC ×3 (06:38→16:06)
[2020-06-07] MEDS: Ipratropium/Albuterol Sulfate 3 ML AMPUL.NEB INHALATION ×3 (07:17→14:03)
[2020-06-07 07:46] LABS: Bedside Glucose 169 mg/dL (70-110)
[2020-06-07] MEDS: Gabapentin 300 MG Capsule PO ×3 (07:50→16:07)
[2020-06-07] MEDS: Aspirin E.C. 81 MG Tablet PO (07:50)
[2020-06-07] MEDS: Losartan Potassium 100 MG Tablet PO (08:59)
[2020-06-07] MEDS: amLODIPine 10 MG Tablet PO (08:59)
[2020-06-07] MEDS: FLUoxetine 20 MG Capsule 40 MG PO (09:00)
--- NOTE | 2020-06-07 09:23 | PCM.PN.PUL ---
Patient Problems: Active and Suspected Problems (Last Updated 04/28/20 @ 12:43 by Chanelle Whiet) Pneumonia (Acute) Sepsis (Acute) COPD exacerbation (Acute) Subjective: Patient feels subjectively improved compared to previous. Chest pain has resolved. Attempt by primary service to transfer patient for cardiothoracic evaluation have been unsuccessful to this point secondary to bed availability. Multiple institutions have been contacted per verbal conversations with primary service. Patient is aware of the situation and just asks to be kept informed - Physical Exam Vitals/I&O's: Vital Signs Temp Pulse Resp BP Pulse Ox 36.6 C 85 18 133/54 H 95 06/07/20 08:58 06/07/20 08:58 06/07/20 08:58 06/07/20 08:58 06/07/20 08:58 Oxygen Flow Rate (L/min) 10 Oxygen Delivery Method Nasal Cannula Weight: 88.7 kg Body Mass Index (BMI) 29.2 Intake and Output for Last 24 Hours 06/05/20 06/06/20 06/07/20 23:59 23:59 23:59 Intake Total 2026.67 / 2386.67 1680 / 1680 50 / 50 Output Total 2450 / 2600 1575 / 1575 450 / 450 Balance -423.33 / -213.33 105 / 105 -400 / -400 General: Alert, Oriented x3, Cooperative, No apparent distress, - - Obese. No conversational dyspnea. HEENT: Atraumatic, PERRLA, EOMI, Normocephalic, - - No scleral icterus or injection noted Oral: Moist Mucosa, No Gingival or Mucosal Lesions/ Ulcerations Neck: Supple, No JVD, No Nodes, Trachea Midline Lungs: No rhonchi, No wheeze, No rales, Diminished - Better air exchange at the right base. Still dullness to percussion more cephalad Cardiovascular: Regular rate, Regular Rhythm, Normal S1, Normal S2, No murmurs, No rub noted, No Gallop Abdomen: Bowel Sounds Present, Soft, Non Tender, Non-Distended, Obese Extremities: No clubbing, No cyanosis, No edema, Capillary Refill Less than 3 Seconds Skin: No rashes, No breakdown Musculoskeletal: No Tenderness to Palpation of Joints or Extremities Lymphatic: No Cervical, Supraclavicular, or Inguinal Adenopathy Neurological: Cranial nerves II-XII grossly intact, Neuro grossly intact, Motor Exam 5/5 strength throughout Psych/Mental Status: Alert and oriented to time, place, person, mood and affect Microbiology Past 72 Hours 06/04/20 12:30 Sputum, Expectorated/Coughed Acid Fast Bacilli Smear - Final 06/03/20 10:45 Blood Culture (Wb) - Anticubital Right Bacteria Detection (PCR) - Final Strep pneumoniae 06/03/20 10:45 Blood Culture (Wb) - Anticubital Right Blood Culture - Final Streptococcus pneumoniae 06/03/20 10:40 Blood Culture (Wb) - Anticubital Left Blood Culture - Final Streptococcus pneumoniae Laboratory Results 06/04/20 12:30: Acid Fast Stain SEE PATHOLOGY REPORT, Miscellaneous Cytology SEE PATHOLOGY REPORT 06/05/20 05:00: Acid Fast Stain SEE PATHOLOGY REPORT, Miscellaneous Cytology SEE PATHOLOGY REPORT 06/06/20 06:33: WBC 9.0, RBC 3.26 L, Hgb 10.5 L, Hct 34.1 L, MCV 104.6 H, MCH 32.2 H, MCHC 30.8 L, RDW Std Deviation 54.9 H, RDW Coeff of Renee 14.0, Plt Count 209, MPV 10.8, Neut % (Auto) Not Reportable, Absolute Neuts (auto) 8.0 H, Absolute Lymphs (auto) 0.54 L, Total Counted 100, Neutrophils % (Manual) 78 H, Band Neutrophils % 11 H, Lymphocytes % (Manual) 6 L, Monocytes % (Manual) 5, Nucleated RBCs/100 WBC 1, Diff Path Review May , Platelet Estimate ADEQUATE, Hypochromasia 1+, Macrocytosis 1+, Stomatocytes 1+ 06/06/20 11:36: POC Glucose 237 H 06/06/20 16:29: POC Glucose 208 H 06/06/20 21:50: POC Glucose 241 H 06/07/20 06:36: POC Glucose 169 H Current Medications Acetaminophen (Acetaminophen 325 Mg Tablet) 650 mg PO Q6H PRN PRN PRN Reason: Pain Score 1-10/Temp > 100.7 F Last Admin: 06/06/20 16:33 Dose: 650 mg Documented by: Albuterol Sulfate (Albuterol 2.5 Mg/3 Ml Vial.Neb.) 2.5 mg INHALATION Q4H PRN PRN Reason: SOB &/OR WHEEZING Albuterol/Ipratropium (Ipratropium/Albuterol Sulfate 3 Ml Ampul.Neb) 3 ml INHALATION Q4HWA.RT [facility] Last Admin: 06/07/20 07:17 Dose: 3 ml Documented by: Amlodipine Besylate (Amlodipine 10 Mg Tablet) 10 mg PO DAILY [facility] Last Admin: 06/07/20 08:59 Dose: 10 mg Documented by: Aspirin (Aspirin E.C. 81 Mg Tablet) 81 mg PO DAILYCM [facility] Last Admin: 06/07/20 07:50 Dose: 81 mg Documented by: Atorvastatin Calcium (Atorvastatin Calcium 20 Mg Tablet) 20 mg PO QHS [facility] Last Admin: 06/06/20 21:53 Dose: 20 mg Documented by: Dextrose (Dextrose 50%-Water 25 Gm/50 Ml Disp.Syrin) 0 gm IV X1 PRN; Protocol PRN Reason: Hypoglycemia Fluoxetine HCl (Fluoxetine 20 Mg Capsule) 40 mg PO DAILY [facility] Last Admin: 06/07/20 09:00 Dose: 40 mg Documented by: Gabapentin (Gabapentin 300 Mg Capsule) 300 mg PO TIDCM [facility] Last Admin: 06/07/20 07:50 Dose: 300 mg Documented by: Glucagon (Glucagon 1 Mg/Ml Syringe) 1 mg IM .X1 PRN PRN Reason: Hypoglycemia Ceftriaxone Sodium 2 gm/ (Sodium Chloride) 50 mls @ 100 mls/hr IV Q24 [facility] Stop: 06/07/20 10:29 Last Admin: 06/07/20 09:01 Dose: 100 mls/hr Documented by: Insulin Human Lispro (Insulin Lispro 100 Unit/Ml Insuln.Pen) 0 unit SC ACHS [facility]; Protocol Last Admin: 06/07/20 06:38 Dose: 2 u Documented by: Losartan Potassium (Losartan Potassium 100 Mg Tablet) 100 mg PO DAILY [facility] Last Admin: 06/07/20 08:59 Dose: 100 mg Documented by: Melatonin (Melatonin 10 Mg Tablet) 15 mg PO QHS [facility] Last Admin: 06/06/20 21:53 Dose: 15 mg Documented by: Methylprednisolone (Methylprednisolone 40 Mg/Ml Vial) 40 mg IV Q8 [facility] Last Admin: 06/07/20 05:23 Dose: 40 mg Documented by: Nicotine (Nicotine 14 Mg Patch) 14 mg TD DAILY [facility] Last Admin: 06/07/20 09:00 Dose: 14 mg Documented by: Non-Formulary Medication (Ibrutinib) 420 mg PO DAILY [facility] Ondansetron HCl (Ondansetron 4 Mg/2 Ml Vial) 4 mg IV Q8H PRN PRN PRN Reason: NAUSEA/VOMITING Sodium Chloride (0.9% Saline Lock 10 Ml Syringe) 10 - 40 ml IV UD PRN PRN Reason: SALINE FLUSH Last Admin: 06/07/20 09:00 Dose: 10 ml Documented by: Clinical Impression(s) from Imaging Studies Chest Ultrasound 06/05/20 12:02 IMPRESSION: As above Electronically Signed: Merlin DixonDO leobardo at 8:07 EST Tel , Service support , Medical Necessity - Tobacco Use Smoking Status: Former smoker Tobacco Use: Cigarettes Assessment/Plan All Active Problems (Last Updated 04/28/20 @ 12:43 by Chanelle White) Pneumonia (Acute) Sepsis (Acute) Lung nodule (Acute) COPD exacerbation (Acute) Acute respiratory failure with hypoxia (Acute) RECOMMENDATIONS: 1. Continue current antibiotics 2. Await transfer to tertiary center for cardiothoracic evaluation 3. Wean oxygen as tolerated 4. Decrease steroids for now 5. Continue to hold anticoagulation until diagnostic procedure can be completed IMPRESSIONS: 1. Severe sepsis secondary to pneumococcal pneumonia in the setting of chronic respiratory failure secondary to probable COPD On previous hospitalization, patient did grow a pneumococcus from the sputum that was treated with Levaquin therapy. This is rapid turnaround for pneumococcus pneumonia (3 weeks). Effusion appears to be very organized on ultrasound. Interventions would include a VATS procedure versus chest tube with fibrinolytics and DNase, but both would likely be best performed with a cardiothoracic surgery backup. Discussed with case management, hospitalist and patient. Transfer for CT surgery evaluation has been unsuccessful to this point. Primary service will continue to attempt transfer. Patient will likely remain hemodynamically stable as long as he is on antibiotics, but it is unlikely, in my opinion, that he will resolve organized loculated effusion on antibiotics alone. 2. Probable COPD with history of tobacco use Patient has not completed pulmonary function test for quantification clarification of lung function. Continue steroid therapy. Nicotine patch would be helpful. Patient was on 3 L nasal cannula at baseline following last hospitalization. Continue to wean oxygen as tolerated. Patient will likely have some improvement in oxygen status secondary to infiltrate in right lower lobe. This should be treated with IV antibiotics alone. 3. Diabetes mellitus type 2/anxiety/depression/obesity/hypertension/hyperlipidemia/repeated hospitalizations Complicates care, management, recovery and prognosis. Agree with using sliding scale instead of Metformin given highly variable clinical course. Patient can likely be continued on current antihypertensive regimen. Would monitor renal function. Inpatient E&M: [id number] [facility] L3
[2020-06-07 12:31] LABS: Bedside Glucose 306 mg/dL (70-110)
--- NOTE | 2020-06-07 14:27 | PCM.DC.SUM ---
<Jovany Guevara - Last Filed: 06/07/20 14:27> Discharge Date and Diagnosis - Problem List Patient Problems: Active and Suspected Problems (Last Updated 04/28/20 @ 12:43 by Chanelle White) Pneumonia (Acute) Sepsis (Acute) COPD exacerbation (Acute) Date of Admission: 06/03/20 Date of Discharge: 06/07/20 - Primary Discharge Diagnosis Acute Problems: Active Problems (Last Updated 04/28/20 @ 12:43 by Chanelle White) Streptococcal pneumonia, recurrent Empyema, loculated right effusion Strep bacteremia Acute on chronic hypoxic respiratory failure 2/2 above, COPD RASHEL on bipap qhs - Secondary Discharge Diagnosis Chronic Problems: Chronic Problems (Last Updated 04/28/20 @ 12:43 by Chanelle White) Type 2 diabetes mellitus (Chronic) Hypertension (Chronic) Depression (Chronic) Hyperlipemia (Chronic) BPH (benign prostatic hypertrophy) (Chronic) Hospital Course and Treatment Imaging Results: DIAGNOSTICS: RAD/Chest 1 View (Portable) IMPRESSION: Bibasilar subsegmental atelectasis is identified with early pneumonic infiltrates noted in both lung bases. CT/Chest WITH Contrast IMPRESSION: Dense right lower lobe infiltrate with associated partially loculated right pleural effusion. Mild left lower lobe atelectasis or infiltrate No evidence for pulmonary abscess MRI/Spine Lumbar W/WO Contrast IMPRESSION: 1. Moderately severe multilevel degenerative disc disease and degenerative arthropathy of the lumbar spine with neural foraminal narrowing and central acquired canal stenosis as described. 2. 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 3. 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 2D Echo: Interpretation Summary Normal LV size. Left ventricular systolic function is normal. The estimated ejection fraction is 55 %. The left atrium is mildly enlarged. No vegetation seen. There is no evidence of a mass or vegetation. This does not rule out endocarditis. US/Chest FINDINGS: Sonographic appearance of lung consolidation with no identified pleural effusion. Pulmonology doctor was available during the scan and agreed Operations: None Procedures: 2-D Echocardiogram Summary of Care Provided: Hospital Course: The patient is a 60 year old M with pmhx of COPD with chronic hypoxic resp failure 4 lpm baseline, RASHEL on CPAP qhs, hx nicotine abuse, DMt2, lymphoma on imatinib, who presented to the ER with fever. The patient had recently treated as an inpatient in March for Strep pna pnuemonia and rhinovirus. He began having symptoms about 5 days prior to presentation. He was coughing up blood on presentation and had elevated lactate with leukocytosis and cxr demonstrating BL pna. He was admitted for pna and sepsis. He was started on rocephin and azithromycin. His O2 requirement increased to 10lpm high flow cannula. He was placed on aerosols and solumedrol. Leukocytosis and fevers resolved. Blood cxs x2 were positive for Strep pna. Pulm and ID were consulted. Azithromycin was stopped. CT chest was obtained and demonstrated a loculated right plueral effusion and BL infiltrates. Echo was negative for vegetation. MRI lumbar spine did not show evidence for infection. US guided thora was attempted however the effusion appeared very dense and radiology/pulmonology did not proceed. This was felt to be empyema. Recommendation was made for transfer to a tertiary center with cardiothoracic surgery for possible VATS/decortication/chest tube placement. He was accepted at [facility] - further care as directed by receiving facility. He was discharged to acute care center in stable condition. He is hemodynamically stable at the time of discharge. This patient was seen by Jovany Guevara PA-C under the supervision of Dr. Faust [] Patient Problems: Active and Suspected Problems (Last Updated 04/28/20 @ 12:43 by Chanelle White) Pneumonia (Acute) Sepsis (Acute) COPD exacerbation (Acute) - Physical Exam Vitals/I&O's: Vital Signs Temp Pulse Resp BP Pulse Ox 97.7 F L 87 18 150/63 H 95 06/07/20 14:25 06/07/20 14:25 06/07/20 14:25 06/07/20 14:25 06/07/20 14:25 Oxygen Flow Rate (L/min) 8 Oxygen Delivery Method Nasal Cannula Weight: 195 lb 8.8 oz Body Mass Index (BMI) 29.2 Intake and Output for Last 24 Hours 06/05/20 06/06/20 06/07/20 23:59 23:59 23:59 Intake Total 2026.67 / 2386.67 1680 / 1680 520 / 520 Output Total 2450 / 2600 1575 / 1575 450 / 450 Balance -423.33 / -213.33 105 / 105 70 / 70 General: Alert, Oriented x3, Cooperative HEENT: Atraumatic, PERRLA, EOMI, Normocephalic Neck: Supple, No JVD, Negative Carotid Bruits Lungs: Diminished, Rales - R>L Cardiovascular: Regular rate, No murmurs Abdomen: Bowel Sounds Present, Soft, Non Tender Extremities: No edema, Capillary Refill Less than 3 Seconds Skin: No rashes, No breakdown Musculoskeletal: No Tenderness to Palpation of Joints or Extremities Neurological: Cranial nerves II-XII grossly intact Psych/Mental Status: Normal Affect, Appropriate, Alert and oriented to time, place, person, mood and affect Microbiology Past 72 Hours 06/04/20 12:30 Sputum, Expectorated/Coughed Acid Fast Bacilli Smear - Final 06/03/20 10:45 Blood Culture (Wb) - Anticubital Right Bacteria Detection (PCR) - Final Strep pneumoniae 06/03/20 10:45 Blood Culture (Wb) - Anticubital Right Blood Culture - Final Streptococcus pneumoniae 06/03/20 10:40 Blood Culture (Wb) - Anticubital Left Blood Culture - Final Streptococcus pneumoniae Laboratory Results 06/04/20 12:30: Acid Fast Stain SEE PATHOLOGY REPORT, Miscellaneous Cytology SEE PATHOLOGY REPORT 06/05/20 05:00: Acid Fast Stain SEE PATHOLOGY REPORT, Miscellaneous Cytology SEE PATHOLOGY REPORT 06/06/20 16:29: POC Glucose 208 H 06/06/20 21:50: POC Glucose 241 H 06/07/20 06:36: POC Glucose 169 H 06/07/20 12:24: POC Glucose 306 H Current Medications Acetaminophen (Acetaminophen 325 Mg Tablet) 650 mg PO Q6H PRN PRN PRN Reason: Pain Score 1-10/Temp > 100.7 F Last Admin: 06/06/20 16:33 Dose: 650 mg Documented by: Albuterol Sulfate (Albuterol 2.5 Mg/3 Ml Vial.Neb.) 2.5 mg INHALATION Q4H PRN PRN Reason: SOB &/OR WHEEZING Albuterol/Ipratropium (Ipratropium/Albuterol Sulfate 3 Ml Ampul.Neb) 3 ml INHALATION Q4HWA.RT [facility] Last Admin: 06/07/20 14:03 Dose: 3 ml Documented by: Amlodipine Besylate (Amlodipine 10 Mg Tablet) 10 mg PO DAILY [facility] Last Admin: 06/07/20 08:59 Dose: 10 mg Documented by: Aspirin (Aspirin E.C. 81 Mg Tablet) 81 mg PO DAILYCM [facility] Last Admin: 06/07/20 07:50 Dose: 81 mg Documented by: Atorvastatin Calcium (Atorvastatin Calcium 20 Mg Tablet) 20 mg PO QHS [facility] Last Admin: 06/06/20 21:53 Dose: 20 mg Documented by: Dextrose (Dextrose 50%-Water 25 Gm/50 Ml Disp.Syrin) 0 gm IV X1 PRN; Protocol PRN Reason: Hypoglycemia Fluoxetine HCl (Fluoxetine 20 Mg Capsule) 40 mg PO DAILY [facility] Last Admin: 06/07/20 09:00 Dose: 40 mg Documented by: Gabapentin (Gabapentin 300 Mg Capsule) 300 mg PO TIDCM [facility] Last Admin: 06/07/20 12:24 Dose: 300 mg Documented by: Glucagon (Glucagon 1 Mg/Ml Syringe) 1 mg IM .X1 PRN PRN Reason: Hypoglycemia Insulin Human Lispro (Insulin Lispro 100 Unit/Ml Insuln.Pen) 0 unit SC ACHS [facility]; Protocol Last Admin: 06/07/20 12:24 Dose: 6 u Documented by: Losartan Potassium (Losartan Potassium 100 Mg Tablet) 100 mg PO DAILY [facility] Last Admin: 06/07/20 08:59 Dose: 100 mg Documented by: Melatonin (Melatonin 10 Mg Tablet) 15 mg PO QHS [facility] Last Admin: 06/06/20 21:53 Dose: 15 mg Documented by: Methylprednisolone (Methylprednisolone 40 Mg/Ml Vial) 40 mg IV Q12 [facility] Nicotine (Nicotine 14 Mg Patch) 14 mg TD DAILY [facility] Last Admin: 06/07/20 09:00 Dose: 14 mg Documented by: Non-Formulary Medication (Ibrutinib) 420 mg PO DAILY [facility] Ondansetron HCl (Ondansetron 4 Mg/2 Ml Vial) 4 mg IV Q8H PRN PRN PRN Reason: NAUSEA/VOMITING Sodium Chloride (0.9% Saline Lock 10 Ml Syringe) 10 - 40 ml IV UD PRN PRN Reason: SALINE FLUSH Last Admin: 06/07/20 09:00 Dose: 10 ml Documented by: Discharge Diet: - - As directed by receiving facility Discharge Activity: - - As directed by receiving facility Home Medications: Medications to take at Discharge Aspirin E.C. [Ecotrin] 81 mg PO DAILY 01/07/14 Amlodipine [Norvasc] 10 mg PO DAILY 04/08/20 Atorvastatin Calcium [Lipitor] 20 mg PO QHS 04/08/20 Calcium Carbonate [Calcium] 1,200 mg PO DAILY 04/08/20 Cholecalciferol (Vitamin D3) [Vitamin D3] 2,000 unit PO DAILY 04/08/20 Losartan Potassium 100 mg PO DAILY 04/08/20 Melatonin 15 - 20 mg PO QHS 04/08/20 Metformin HCl 500 mg PO BID 04/08/20 Albuterol Inhaler [Ventolin Hfa] 1 puff INHALATION Q4H PRN PRN #1 inhaler 04/12/20 nicotine 14 mg/24 hr daily transdermal patch 1 patch TRANSDERMAL DAILY ea 04/28/20 Acetaminophen [Tylenol Extra Strength] 1,000 mg PO Q4H PRN PRN 06/03/20 Fluoxetine HCl 40 mg PO DAILY 06/03/20 Gabapentin [Neurontin] 300 mg PO TID 06/03/20 Ibrutinib [Imbruvica] 420 mg PO DAILY 06/03/20 Primary Care Physician: Hector Vega MD [Primary Care Provider] - Please follow up with your Primary Care Physician in: As directed by receiving facility Disposition: Acute care Hospital Minutes spent on discharge:: 40 Patient Condition:: Stable Medical Necessity - Tobacco Use Smoking Status: Former smoker Tobacco Use: Cigarettes Meaningful Use Info Meaningful Use Diagnoses (Choose all that apply): None applicable <Paintsdaniel,[place] - Last Filed: 06/08/20 08:14> Discharge Date and Diagnosis - Primary Discharge Diagnosis Acute Problems: Active Problems (Last Updated 04/28/20 @ 12:43 by Chanelle hWite) Pneumonia (Acute) Sepsis (Acute) COPD exacerbation (Acute) - Secondary Discharge Diagnosis Chronic Problems: Chronic Problems (Last Updated 04/28/20 @ 12:43 by Chanelle White) Type 2 diabetes mellitus (Chronic) Hypertension (Chronic) Depression (Chronic) Hyperlipemia (Chronic) BPH (benign prostatic hypertrophy) (Chronic) Hospital Course and Treatment Summary of Care Provided: This patient was seen in conjunction with SHAYY Draper. I have independently interviewed and examined the patient and reviewed pertinent historical, laboratory, and other data. Please refer to SHAYY Draper note for his patient's presentation, findings, and recommendations. I have reviewed and his note and concur with his documentation 60-year-old male with past medical history of COPD with chronic hypoxic respiratory failure on 4.5 L of oxygen at baseline, RASHEL on CPAP, continued nicotine use disorder who comes in with progressive shortness of breath and fever. Patient was recently treated for pneumonia and rhinovirus infection. He completed a course of Levaquin at that time. He presented with a 5-day history of fever and coughing up blood. He had elevated lactate with leukocytosis. His chest x-ray showed bilateral pneumonia. Blood cultures came back positive for strep pneumonia. Urine surgical continue was positive. Patient was managed as acute recurrent strep pneumo. Infectious disease and pulmonology were consulted. Patient underwent 2D echo that showed no valvular lesions. He was continued on IV ceftriaxone. CT of the chest shows a loculated right pleural effusion with bilateral infiltrates worse in the right lower lobe. MRI was negative for any osteomyelitis. Pulmonology recommended that patient be transferred to a tertiary institution for VATS or decortication of his pleural effusion as bedside ultrasound evaluation showed that his pleural effusion was loculated. Patient was accepted to [facility]. On the day of discharge, patient was seen and examined. He appears to be much improved. Remains on 10 L of oxygen. He still having hemoptysis although improved. Physical exam: General: Alert, Oriented x3, Cooperative, No apparent distress, on 10L liters of oxygen HEENT: Atraumatic, PERRLA, EOMI, Normocephalic Oral: Moist Mucosa Neck: Supple, No JVD Lungs: Diminished air entry, rales in the right mid and lower lung zones, Cardiovascular: Regular Rhythm, Normal S1, Normal S2, No murmurs, Tachycardic Abdomen: Soft, Non Tender, Non-Distended, No Hepato-splenomegaly Extremities: No edema, Capillary Refill Less than 3 Seconds Skin: No rashes, No breakdown Neurological: Neuro grossly intact, Sensory exam intact to light touch and pain Psych/Mental Status: Normal Affect, Appropriate - Physical Exam Vitals/I&O's: Vital Signs Temp Pulse Resp BP Pulse Ox 97.7 F L 90 18 150/63 H 94 06/07/20 14:25 06/07/20 15:00 06/07/20 14:25 06/07/20 14:25 06/07/20 14:31 Oxygen Flow Rate (L/min) 8 Oxygen Delivery Method Nasal Cannula Weight: 88.7 kg Body Mass Index (BMI) 29.2 Intake and Output for Last 24 Hours 06/06/20 06/07/20 06/08/20 23:59 23:59 23:59 Intake Total 1680 / 1680 520 / 520 Output Total 1575 / 1575 450 / 450 Balance 105 / 105 70 / 70 Microbiology Past 72 Hours 06/04/20 12:30 Sputum, Expectorated/Coughed Acid Fast Bacilli Smear - Final 06/03/20 10:45 Blood Culture (Wb) - Anticubital Right Bacteria Detection (PCR) - Final Strep pneumoniae 06/03/20 10:45 Blood Culture (Wb) - Anticubital Right Blood Culture - Final Streptococcus pneumoniae 06/03/20 10:40 Blood Culture (Wb) - Anticubital Left Blood Culture - Final Streptococcus pneumoniae Laboratory Results 06/07/20 12:24: POC Glucose 306 H 06/07/20 16:06: POC Glucose 183 H Inpatient E&M: [id number] [facility] Hosp
[2020-06-07 16:15] LABS: Bedside Glucose 183 mg/dL (70-110)
[2020-06-09 12:55] LABS: Pathologist Review Reviewed
--- NOTE | 2020-06-09 13:31 | CASEMGMT ---
CECILIA CM DC PHONE CALL DC DATE: 06/07/20 DC DISPOSITION: Home DC DIAGNOSIS: Pneumonia LACE/STRATA: 13 F/U APPTS MADE PRIOR TO DC: no (weekend discharge) Attempted call to patient. No answer and no messaging. Chandler TIDWELLN RN AC
[2020-06-09 20:07] LABS: QNTFERON TB Mitogen Value > 10.00 IU/mL (.); QNTFERON TB Nil Value 0.11 IU/mL (.); QNTFERON TB1+ Ag Value 0.09 IU/mL (.); QNTFERON TB2+ Ag Value 0.12 IU/mL (.)
[2020-06-09 20:12] LABS: QNTIFERON TB Positive Criteria Negative (Negative)
== END 2020-06-07 16:33 | disposition short-term general hospital (02) | DRG 871 ==
LOC: ED 14:52 → PCU 15:05
PROVIDERS: Hospitalist; Internal Medicine Critical Care Medicine; Admitting Provider Family Medicine; Emergency Provider Emergency Medicine; PCP Family Medicine; Visit Provider Internal Medicine
DX: A40.3 Sepsis due to Streptococcus pneumoniae (principal); J13 Pneumonia due to Streptococcus pneumoniae; J86.9 Pyothorax without fistula; J96.21 Acute and chronic respiratory failure with hypoxia; R65.20 Severe sepsis without septic shock; R04.2 Hemoptysis; J90 Pleural effusion, not elsewhere classified; J98.11 Atelectasis; C85.90 Non-Hodgkin lymphoma, unspecified, unspecified site; J44.0 Chronic obstructive pulmonary disease with (acute) lower respiratory infection; I48.91 Unspecified atrial fibrillation; F33.41 Major depressive disorder, recurrent, in partial remission; R76.11 Nonspecific reaction to tuberculin skin test without active tuberculosis; N40.0 Benign prostatic hyperplasia without lower urinary tract symptoms; E78.5 Hyperlipidemia, unspecified; F41.9 Anxiety disorder, unspecified; E11.9 Type 2 diabetes mellitus without complications; I10 Essential (primary) hypertension; G47.33 Obstructive sleep apnea (adult) (pediatric); F17.210 Nicotine dependence, cigarettes, uncomplicated; Z79.82 Long term (current) use of aspirin; Z79.84 Long term (current) use of oral hypoglycemic drugs; Z82.5 Family history of asthma and other chronic lower respiratory diseases
CPT/HCPCS: 36415; 71045; 71260; 72158; 76604; 80048; 80053; 82962; 83605; 83615; 83735; 84156; 84443; 85025; 85610; 85730; 86480; 87015; 87040; 87077; 87116; 87149; 87186; 87206; 87449; 87633; 87635; 88108; 88312; 88313; 93005; 93306; 94002; 94003; 94640; 94667; 94668; 99285; A9575; J7030; Q9957; Q9967; A4216; J0696; J1940; U0002

== ENCOUNTER → 2020-06-30 12:16 | Outpatient (CLI) | payer BC, SELFPAY ==
[2020-04-28 11:11] VITALS: BMI 29.2
[2020-06-03 16:05] VITALS: BMI 29.2
[2020-06-30 12:52] VITALS: PULSE 82; PULSE 85; PULSE 89; PULSE 91; PULSE 92; PULSE 93; PULSE 94; O2SAT 91; O2SAT 92; O2SAT 93; O2SAT 95; O2SAT 96
--- NOTE | 2020-06-30 12:54 | CPS ---
Patient came in on home O2, states that he wears 3 lpm at rest and 4 lpm during ambulation. Patient took off his O2 for less that 5 minutes and SpO2 86%. Patient placed on 4 lpm O2 to begin walk, SpO2 recovered to 95%. [place] through walk SpO2 93% and patient had not taken any breaks, patient asked if he could turn it down to 3 lpm for the remainder of walk. Patient was able to maintain an SpO2 >90% for the rest of the walk with no breaks on 3 lpm. Patient only complained of back and leg pain.
--- NOTE | 2020-06-30 16:56 | WT_ITS ---
PSN 6 Minute Walk Test - 6 Minute Walk Test 6 Minute Walk Test: 6 Minute Walk Test PSN:6-Minute Walk Test Start: 06/30/20 12:51 Freq: Status: Active Protocol: [id number] Document 06/30/20 12:52 JOSEPH (Rec: 06/30/20 13:05 JOSEPH [id number]) 6 Minute Walk Test Date Performed 06/30/20 Time Performed 12:30 Height 5 ft 9 in Weight: 89.811 kg Weight in Pounds 198.[address]: Yanick Jamison Assistive device used: Cane Pre-test Oxygen Flow Rate (L/min) (L/min) 4 Oxygen Delivery Method Nasal Cannula Pulse Ox (%) 95 Pulse Rate (60-100 beats/min) 85 Dyspnea Shahla Scale (0-10) 0 Exertion Shahla Scale (6-20) 6 1st minute Oxygen Flow Rate (L/min) (L/min) 4 Oxygen Delivery Method Nasal Cannula Pulse Ox (%) 95 Pulse Rate (60-100 beats/min) 89 2nd minute Oxygen Flow Rate (L/min) (L/min) 4 Oxygen Delivery Method Nasal Cannula Pulse Ox (%) 93 Pulse Rate (60-100 beats/min) 94 3rd minute Oxygen Flow Rate (L/min) (L/min) 4 Oxygen Delivery Method Nasal Cannula Pulse Ox (%) 93 Pulse Rate (60-100 beats/min) 93 4th minute Oxygen Flow Rate (L/min) (L/min) 3 Oxygen Delivery Method Nasal Cannula Pulse Ox (%) 93 Pulse Rate (60-100 beats/min) 92 5th minute Oxygen Flow Rate (L/min) (L/min) 3 Oxygen Delivery Method Nasal Cannula Pulse Ox (%) 91 Pulse Rate (60-100 beats/min) 91 6th minute Oxygen Flow Rate (L/min) (L/min) 3 Oxygen Delivery Method Nasal Cannula Pulse Ox (%) 92 Pulse Rate (60-100 beats/min) 93 Dyspnea Shahla Scale (0-10) 2 Exertion Shahla Scale (6-20) 13 Post-test Oxygen Flow Rate (L/min) (L/min) 3 Oxygen Delivery Method Nasal Cannula Pulse Ox (%) 96 Pulse Rate (60-100 beats/min) 82 Full Laps Walked 13 Partial Lap, Number of Tiles Walked 24 Total Distance Walked (ft) 791 06/30/20 12:54 Cardiopulmonary Services by Toma Gilliam Patient came in on home O2, states that he wears 3 lpm at rest and 4 lpm during ambulation. Patient took off his O2 for less that 5 minutes and SpO2 86%. Patient placed on 4 lpm O2 to begin walk, SpO2 recovered to 95%. [facility] through walk SpO2 93% and patient had not taken any breaks, patient asked if he could turn it down to 3 lpm for the remainder of walk. Patient was able to maintain an SpO2 >90% for the rest of the walk with no breaks on 3 lpm. Patient only complained of back and leg pain. Initialized on 06/30/20 12:54 - END OF NOTE - Interpretation Interpretation: Patient noted to be 86% on room air at rest and was placed on 4 L nasal cannula. Patient then ambulated 6 minutes with the assistance of a cane and had an oxygen jered of 91%. The patient traveled a total of 791 feet over the course of 6 minutes. - Recommendations Recommendations: The patient should be using 4 L nasal cannula at all times.
== END ==
PROVIDERS: PCP Family Medicine; Referring Provider Nurse Practitioner Acute Care; Visit Provider Nurse Practitioner Acute Care
DX: J44.9 Chronic obstructive pulmonary disease, unspecified (principal)
CPT/HCPCS: 94618

== ENCOUNTER → 2020-07-01 08:46 | Outpatient (CLI) | payer BC, SELFPAY ==
[2020-04-28 11:11] VITALS: BMI 29.2
[2020-06-03 16:05] VITALS: BMI 29.2
--- NOTE | 2020-07-01 16:15 | PFTCOMP ---
COMPLETE PULMONARY FUNCTION TEST INTERPRETATION Brief HPI: Patient is a 60 year old male, currently under the care of Corrie Torres, who presents to [facility] for complete pulmonary function tests secondary to diagnosis of COPD. Respiratory therapist reports good effort and reproducible results. Interpretation: Forced expiration spirometry shows a severe large airways obstructive ventilatory defect with an FEV1 of 40% predicted. There is no significant bronchodilator response by strict ATS criteria. Spirograms are of good quality and plateau slowly, indicating slowly emptying areas of the lungs. The respiratory flow volume loop shows decreased expiratory flow rates at all lung volumes consistent with airway obstruction. Lung volumes by body plethysmography show a normal total lung capacity at 6.76 L, 105% predicted. FRC and RV are elevated out of proportion. Lung volume measurements are consistent with air-trapping. Diffusion capacity by carbon monoxide is decreased at 49% predicted. The airway resistance is elevated. No previous pulmonary function tests were available for review. Impression: Severe obstructive ventilatory defect resulting in air trapping, with a symmetric reduction diffusion capacity consistent with advanced COPD.
== END ==
PROVIDERS: PCP Family Medicine; Referring Provider Nurse Practitioner Acute Care; Visit Provider Nurse Practitioner Acute Care
DX: J44.9 Chronic obstructive pulmonary disease, unspecified (principal)
CPT/HCPCS: 94060; 94726; 94729

== ENCOUNTER → 2020-07-16 13:15 | Outpatient (CLI) | payer BC, SELFPAY ==
[2020-06-03 16:05] VITALS: BMI 29.2
--- NOTE | 2020-07-16 13:16 | CT_ITS ---
STUDY: CT CHEST WITHOUT CONTRAST REASON FOR EXAM: Male, 60 years old. F/U LUNG NODULE. COPD RADIATION DOSAGE (If Supplied By Facility): CTDIvol = ( 15.88 ) mGy, DLP = ( 600.35 ) mGycm TECHNIQUE: Transaxial imaging was performed without the administration of intravenous contrast material. Individualized dose optimization techniques were used for this CT. COMPARISON: 04/08/2020 and 06/04/2020 FINDINGS: Stable 1 cm left lung base nodule in comparison to the examination of 04/08/2020. Minimal scarring is noted at the right base. There is no demonstrated pleural abnormality. There are calcifications of the coronary arteries. Normal mediastinum. Normal hilar regions. Normal unenhanced pulmonary arteries. Normal aorta arch and descending thoracic aorta. Normal osseous structures. There is no demonstrated abnormality of the visualized upper abdomen. CT/Chest without Contrast IMPRESSION: 1 cm left base nodule demonstrates stability compared to the examination of 04/08/2020. Follow-up: Nodule size > 8 mm: Low-Risk Patient - Follow-up CT at around 3,9 and 24 months. Dynamic contrast-enhanced CT, PET and/or biopsy. High-Risk Patient - Same as for low-risk patient. Low-Risk = Minimal or absent history of smoking and of other known risk factors. High-Risk = History of smoking or of other known risk factors. Electronically Signed: Pedro Monroy, at 16:06 EST Tel , Service support ,
== END ==
PROVIDERS: PCP Family Medicine; Referring Provider Nurse Practitioner Acute Care; Visit Provider Nurse Practitioner Acute Care
DX: R91.1 Solitary pulmonary nodule (principal)
CPT/HCPCS: 71250

== ENCOUNTER → 2020-08-02 08:33 | Outpatient (CLI) | payer BC, SELFPAY ==
[2020-06-03 16:05] VITALS: BMI 29.2
[2020-08-02 09:09] LABS: Absolute Lymphocyte Count 1.62 X10^3/uL (0.83-4.51); Absolute Neutrophil Count 7.2 X10^3/uL (2.0-7.7); Basophil# 0.04 X10^3/uL; Basophil% 0.4 % (0-1); Eosinophil# 0.08 X10^3/uL; Eosinophils% 0.8 % (0-5); Hematocrit 44.5 % (40-54); Hemoglobin 14.4 g/dL (13.0-16.5); Lymphocyte # 1.62 X10^3/ul (4.0); Lymphocyte % 16.2 % (19-41); Mean Corp Hgb Conc 32.4 g/dL (32-36); Mean Corpuscular Hgb 31.9 pg (27.0-32.0); Mean Corpuscular Volume 98.5 fL (80-94); Mean Platelet Vol. 10.2 fl (6.2-12.0); Monocyte# 0.94 X10^3/uL; Monocyte% 9.4 % (0-10); NRBC Flagged by Analyzer 0 % (0-5); Neutrophil # 7.22 X10^3/uL (2.7-7.7); Neutrophil % 72.5 % (47-70); Platelet Count 169 K/mm3 (150-450); RBC Distribution Width CV 12.4 % (11.6-14.6); RBC Distribution Width SD 45.1 fl (35.1-43.9); Red Blood Count 4.52 M/mm3 (4.6-6.2)
[2020-08-02 09:35] LABS: ALB/GLOB Ratio 1.2 RATIO (0.9-2.4); AST(SGOT) 13 U/L (15-37); Alanine Aminotransfer ALT/SGPT 19 U/L (16-61); Albumin, Serum 3.6 g/dL (3.2-5.0); Alkaline Phosphatase 71 U/L (45-117); Anion Gap 3 (5-15); BUN 10 mg/dL (7-18); BUN/Creat Ratio 15.3 RATIO (10-20); Calcium,Total 8.6 mg/dL (8.5-10.1); Chloride 107 mmol/L (98-107); Creatinine, Serum 0.65 mg/dL (0.70-1.30); EST Glomerular Filtration Rate 132 mL/min (>60); Est Glom Filt Rate - Afr Amer 160 mL/min (>60); Globulin 3.1 g/dL (2.2-4.2); Glucose 102 mg/dL (74-106); LDH 174 U/L (87-241); Phosphorus 3.6 mg/dL (2.5-4.9); Potassium 4.1 mmol/L (3.5-5.1); Protein, Total 6.7 g/dL (6.4-8.2); Sodium Level 141 mmol/L (136-145)
[2020-08-05 14:09] LABS: PROEL- A/G Ratio 1.4 (0.7-1.7); PROEL- Albumin 3.6 g/dL (2.9-4.4); PROEL- Alpha-1 Globulin 0.2 g/dL (0.0-0.4); PROEL- Alpha-2 Globulin 0.8 g/dL (0.4-1.0); PROEL- Gamma Globulin 0.6 g/dL (0.4-1.8); PROEL- Globulin, Total 2.6 g/dL (2.2-3.9); PROEL- TOTAL PROTEIN 6.2 g/dL (6.0-8.5)
== END ==
PROVIDERS: PCP Family Medicine; Referring Provider Internal Medicine Hematology & Oncology; Visit Provider Internal Medicine Hematology & Oncology
DX: C85.88 Other specified types of non-Hodgkin lymphoma, lymph nodes of multiple sites (principal); C88.0 Waldenstrom macroglobulinemia
CPT/HCPCS: 36415; 80053; 83615; 84100; 84165; 85025; 86335

== ENCOUNTER → 2020-11-10 11:31 | Outpatient (CLI) | payer BC, SELFPAY ==
[2020-11-10 08:01] VITALS: BMI 32.1
== END ==
PROVIDERS: PCP Family Medicine; Referring Provider Nurse Practitioner Acute Care; Visit Provider Nurse Practitioner Acute Care
DX: J44.9 Chronic obstructive pulmonary disease, unspecified (principal)
CPT/HCPCS: 87070; 87077; 87186; 87205

== ENCOUNTER 2021-03-04 16:07 | Outpatient (CLI) | payer BC, SELFPAY ==
[2021-03-04] MEDS: 0.9% Saline Lock 10 ML Syringe IV (16:16)
[2021-03-04 16:17] VITALS: BP 144/74; PULSE 80; RESP 20; TEMP 37.6; O2SAT 90; BMI 27.3
[2021-03-04 17:10] VITALS: BP 150/74; PULSE 76; RESP 18; TEMP 37.5; O2SAT 96
[2021-03-04 18:10] VITALS: BP 143/76; PULSE 78; RESP 18; TEMP 36.9; O2SAT 95
== END 2021-03-04 18:11 | disposition home or self-care (01) ==
LOC: ICUOUT 16:08 → MS2 16:08
PROVIDERS: PCP Family Medicine; Referring Provider Nurse Practitioner Acute Care; Visit Provider Nurse Practitioner Acute Care
DX: Z23 Encounter for immunization (principal); U07.1 COVID-19
CPT/HCPCS: J7050; M0243; A4216; Q0244

== ENCOUNTER 2021-05-29 11:16 | Emergency (ER) | payer BC, SELFPAY ==
[2021-05-29 11:18] VITALS: BP 162/84; PULSE 88; RESP 16; TEMP 36.4; O2SAT 96; BMI 28.9
--- NOTE | 2021-05-29 11:53 | CT_ITS ---
STUDY: CT LUMBAR SPINE WITHOUT CONTRAST REASON FOR EXAM: Male, 61 years old. Low back pain following a recent fall. RADIATION DOSAGE (If Supplied By Facility): CTDIvol = ( 18.77 ) mGy, DLP = ( 536.07 ) mGycm TECHNIQUE: The patient was scanned in a multi detector CT scanner. High resolution transaxial imaging was performed. Images were obtained from L1 to S1 vertebral level. Sagittal and coronal images were reconstructed. Individualized dose optimization techniques were used for this CT. COMPARISON: None FINDINGS: Normal lumbar lordosis. There is no substantial scoliosis. Approximately 10% loss of height of the L1 vertebrae. With the history of a fall, this may represent a compression fracture. There is a mild degree of a paravertebral soft tissue swelling. L1-2: Mild degree of disc space narrowing. No significant stenosis seen. Mild degree of facet joint osteoarthritis. L2-3: Mild degree of facet joint osteoarthritis. Mild degree of diffuse posterior disc bulge. Mild degree of neural foraminal stenosis. L3-4: Facet joint osteoarthritis and hypertrophy. Moderate degree of bilateral neural foraminal stenosis. L4-5: Facet joint osteoarthritis and hypertrophy. Mild degree of central canal stenosis due to hypertrophy of the ligamenta flava and posterior disc bulge. Moderate degree of bilateral neural foraminal stenosis. L5-S1: Facet joint osteoarthritis. Mild degree of bilateral neural foraminal stenosis. CT/Spine Lumbar without Contrast IMPRESSION: Multilevel degenerative changes, as described above. Findings suggestive of a 10% loss of height of the L1 vertebrae. With history of fall, this may represent a compression fracture. Electronically Signed: Brendan Gunn MD at 12:25 EST , Service support ,
--- NOTE | 2021-05-29 11:54 | EDS_ITS ---
HPI History of Present Illness Chief Complaint: Back Informant: patient Onset/Context/Timing Onset: Weeks (1) Context: Sudden Onset Injury: fall Timing: Continuous Quality: Aching Location: Lumbar Current Severity: Mild Maximum Severity: Severe Worsened by: improves with Movement and Bending Relieved by: Remaining Still Associated Symptoms Associated Symptoms: Urinary Incontinence and Fecal Incontinence; Negative for Numbness, Tingling, Radiation to Right Leg, Radiation to Left Leg, Abdominal Pain, Dysuria, Unable to Ambulate, Unable to Transfer, Urinary Retention and Constipation Narrative Narrative: Patient states [place] brush [place], and something happened with that that knocked him down onto his buttocks. Ever since then he has had pain in his low back, worse on the left but also on the right. He has had no radiation down into his lower extremities, no numbness in his legs or saddle anesthesia. However he has noticed several instances where he has lost control of his bladder and his bowels with a little warning before he needed to go. He has had no weakness in the legs or trouble walking. It does hurt to move and bend over, but once he is upright he can walk with very little difficulty. He states the urinary incontinence is new, when asked if he had incontinence of stool before his fall, he states he is not sure. Apparently he was seen at urgent care just prior to coming here, and was sent here for further evaluation. Patient states about a year ago, he had surgery in his low back for spinal stenosis. [facility] Medical History Acute respiratory failure with hypoxia COPD (chronic obstructive pulmonary disease) COPD exacerbation Depression Hyperlipidemia Hypertension Lymphoma Home Medications amlodipine 10 mg PO DAILY 04/08/20 [History Last Taken 06/02/20] atorvastatin 20 mg PO QHS 04/08/20 [History Last Taken 06/02/20] calcium carbonate 1,200 mg PO DAILY 04/08/20 [History Last Taken 06/03/20] cholecalciferol (vitamin D3) 2,000 unit PO DAILY 04/08/20 [History Last Taken 06/03/20] losartan 100 mg PO DAILY 04/08/20 [History Last Taken 06/02/20] melatonin 40 mg PO QHS 04/08/20 [History Last Taken 06/02/20] metformin 1,000 mg PO BID 04/08/20 [History Last Taken 06/03/20] acetaminophen 1,000 mg PO Q4H PRN PRN 06/03/20 [History Last Taken 06/03/20] fluoxetine 40 mg PO DAILY 06/03/20 [History Last Taken 06/02/20] ibrutinib 420 mg PO DAILY 06/03/20 [History Last Taken 06/02/20] nicotine 14 mg/24 hr daily transdermal patch 1 patch TD DAILY #28 ea 02/23/21 [Rx Last Taken Unknown] ipratropium 0.5 mg-albuterol 3 mg (2.5 mg base)/3 mL nebulization soln 3 ml INHALATION Q4H PRN PRN #180 ml 03/02/21 [Rx Last Taken Unknown] budesonide 160 mcg-glycopyr 9 mcg-formot 4.8 mcg/actuation HFA inhaler 2 inh INHALATION BID #10.7 g 05/29/21 [Rx Last Taken Unknown] vjedubhyguq-harvyptfb-vllfrphx [Trelegy Ellipta] 1 inh INHALATION DAILY 05/29/21 [History Last Taken Unknown] tramadol 50 mg PO Q4H PRN PRN 3 Days #14 tab 05/29/21 [Rx Last Taken Unknown] Allergy/AdvReac Type Severity Reaction Status Date / Time hydrochlorothiazide Allergy Unknown Verified 05/29/21 11:19 lisinopril AdvReac Mild cough Verified 05/29/21 11:19 Family History Other No pertinent family history Surgical History (Updated 05/29/21 @ 11:37 by Dahlia Kaufman) History of appendectomy No pertinent past surgical history Previous back surgery Social History Smoking Status: Light Smoker (<10/day) alcohol intake: former details: Not since being in the hospital substance use type: does not use ROS ROS ED Constitutional Constitutional ED: Denies chills or fever(s) Gastrointestinal Gastrointestinal: Denies abdominal pain, constipation, fecal incontinence, nausea or vomiting Genitourinary Genitourinary ED: Reports as per HPI, urinary incontinence and other Details: no urinary retention ; Denies abdominal discomfort Musculoskeletal Musculoskeletal: Reports as per HPI and back pain; Denies neck pain Integumentary Denies rash or wounds Neurologic Neurologic: Denies headache(s), paresthesias or weakness EXAM Physical Exam Const Vital Signs: 05/29/21 11:18 Temperature 97.5 F L Temperature Source Temporal Pulse Rate 88 Respiratory Rate 16 Blood Pressure 162/84 H Blood Pressure Mean 110 Pulse Ox 96 Oxygen Delivery Method Nasal Cannula Oxygen Flow Rate (L/min) 4 Positive well nourished and well developed General Appearance ED: well developed and NAD HEENT Negative for trauma or tenderness Eyes PERRL and EOMs intact bilaterally Neck full ROM and supple GI normal to inspection, nondistended, normoactive bowel sounds, soft to palpation and non-tender Back/Spine normal to inspection Thoracic Spine / Upper Back: normal to inspection; Negative for pain with ROM or thoracic spinal tenderness Lumbar Spine / Lower Back: normal to inspection, lumbar ROM normal, pain with ROM, paraspinal muscle tenderness bilateral (Worse on the left, lumbosacral level) and straight leg raise negative bilaterally; Negative for lumbar spinal tenderness Extremity normal to inspection, full ROM and no pedal edema Neuro oriented x3 and no sensory deficits noted Sensorium / Orientation: alert Motor Exam: strength 5/5 throughout and clonus absent Deep Tendon Reflexes: Rt Patellar (L4): 1+, Lt Patellar (L4): 1+, Rt Ankle (S1): 1+ and Lt Ankle (S1): 1+ Deep Tendon Reflexes Back: Rt Patellar (L4): 1+, Lt Patellar (L4): 1+, Rt Ankle (S1): 1+ and Lt Ankle (S1): 1+ Plantar Reflex: Downgoing: bilateral Psych mental status grossly normal and thought process normal Skin no rashes or lesions noted and no wounds MDM MDM MDM Narrative Medical decision making narrative: Reviewed the CT findings. Discussed with Dr. Courtney on for spine, and discussed his exam, symptoms, and CT findings which do not explain his intermittent episodes of incontinence. He does not have cauda equina syndrome, given he has no numbness, weakness, or change in reflexes. Dr. Courtney is in agreement and agrees that he does not need an emergent MRI given this, and recommends that he follow-up with his back surgeon. After discussion with the patient he is comfortable with that plan, he saw Dr. Alonzo in [facility], with whom he will follow up with. Will prescribe him tramadol to use as needed for pain. Radiography Diagnostic Testing: Clinical Impression(s) from Imaging Studies Lumbar Spine CT 05/29/21 11:53 IMPRESSION: Multilevel degenerative changes, as described above. Findings suggestive of a 10% loss of height of the L1 vertebrae. With history of fall, this may represent a compression fracture. Electronically Signed: Brendan Gunn MD at 12:25 EST , Service support , Discharge Plan Triage Chief Complaint: Back ED Provider: Kenney Sommers Dx/Rx/DC Orders Clinical Impression: Compression fracture of first lumbar vertebra, Incontinence of urine Instructions: ED Fracture, Vertebral Compression Prescriptions: New tramadol 50 MG tablet 50 mg PO Q4H PRN PRN (Reason: Pain) 3 Days Qty: 14 RF: 0 No Action Breztri Aerosphere 160-9-4.8 mcg/actuation HFA aerosol inhaler 2 inh inhalation BID Qty: 10.7 RF: 5 metformin 500 MG tablet 1,000 mg PO BID RF: 0 amlodipine 10 MG tablet 10 mg PO DAILY RF: 0 losartan 100 MG tablet 100 mg PO DAILY RF: 0 melatonin 5 MG tablet 40 mg PO QHS RF: 0 atorvastatin 20 MG tablet 20 mg PO QHS RF: 0 calcium carbonate 600 MG tablet 1,200 mg PO DAILY RF: 0 cholecalciferol (vitamin D3) 2,000 UNIT capsule 2,000 unit PO DAILY RF: 0 fluoxetine 40 MG capsule 40 mg PO DAILY RF: 0 acetaminophen 500 MG tablet 1,000 mg PO Q4H PRN PRN (Reason: Pain 1-10 Or Fever) RF: 0 ibrutinib 420 MG tablet 420 mg PO DAILY RF: 0 Trelegy Ellipta 100-62.5-25 mcg blister with device 1 inh INHALATION DAILY RF: 0 nicotine 14 mg/24 hr patch 24 hour 1 patch TD DAILY Qty: 28 RF: 0 ipratropium-albuterol 0.5 mg-3 mg(2.5 mg base)/3 mL solution for nebulization 3 ml inhalation Q4H PRN PRN (Reason: SOB &/OR WHEEZING) Qty: 180 RF: 6 Primary Care Provider: Hector Vega Referrals: Dr. Cheri [Other] - 3-5 Days (call for appt for when they can get you in) Hector Vega MD [Primary Care Provider] - Disposition Disposition: Home, Self Care
--- NOTE | 2021-05-29 13:47 | ED.RN ---
pt continues to verbalize frustration in the wait time. pt in room yelling at /so. attempted to explain to the pt that the ER is busy with critical pt's. pt continued to complain and stated when are you going to get the dr. back here. this rn asked the pt if you or your family member was critical would you want me pulling the dr out of the room to see a pt that was stable, pt stated no i would not. however, pt continued to state that we should hire more staff. this rn explained that we are staffed appropriately today and that the hospital could not afford for every pt to have there own personal nurse and dr. /so understanding and kind.
[2021-05-29 14:24] VITALS: PULSE 88; RESP 17; O2SAT 95
== END 2021-05-29 14:25 | disposition home or self-care (01) ==
PROVIDERS: Emergency Provider Emergency Medicine; PCP Family Medicine
DX: S32.019A Unspecified fracture of first lumbar vertebra, initial encounter for closed fracture (principal); W19.XXXA Unspecified fall, initial encounter; Y93.89 Activity, other specified; Y92.9 Unspecified place or not applicable; Y99.9 Unspecified external cause status; R32 Unspecified urinary incontinence; R15.9 Full incontinence of feces; I10 Essential (primary) hypertension; E78.5 Hyperlipidemia, unspecified; F32.A Depression, unspecified; F17.200 Nicotine dependence, unspecified, uncomplicated; Z79.84 Long term (current) use of oral hypoglycemic drugs; Z79.899 Other long term (current) drug therapy
CPT/HCPCS: 72131; 99282

== ENCOUNTER 2021-06-25 12:44 | Emergency (ER) | payer BC, SELFPAY ==
[2021-06-25 12:46] VITALS: BP 188/84; PULSE 96; RESP 20; TEMP 36.2; O2SAT 96; BMI 28.6
[2021-06-25 13:29] VITALS: BP 188/84; PULSE 88; RESP 20; TEMP 36.2; O2SAT 96
--- NOTE | 2021-06-25 13:38 | EKG12_ITS ---
Test Reason : Blood Pressure : / mmHG Vent. Rate : 089 BPM Atrial Rate : 089 BPM P-R Int : 148 ms QRS Dur : 132 ms QT Int : 384 ms P-R-T Axes : 062 212 052 degrees QTc Int : 467 ms Normal sinus rhythm Right bundle branch block Septal infarct , age undetermined , cannot be excluded Abnormal ECG Confirmed by LINO HUTCHISON, ROBERT ([id number]), communications editor NASIM BLANKENSHIP ([id number]) on 06/26/2021 10:49:26 AM Referred By: SHAGUFTA Confirmed By:ROBERT HUYNH MD
[2021-06-25 13:46] VITALS: O2SAT 98
[2021-06-25 13:47] LABS: Absolute Lymphocyte Count 1.67 X10^3/uL (0.83-4.51); Absolute Neutrophil Count 6.1 X10^3/uL (2.0-7.7); Basophil# 0.03 X10^3/uL; Basophil% 0.3 % (0-1); Eosinophil# 0.02 X10^3/uL; Eosinophils% 0.2 % (0-5); Hematocrit 41.4 % (40-54); Hemoglobin 13.1 g/dL (13.0-16.5); Lymphocyte # 1.67 X10^3/ul (0.83-4.51); Mean Corp Hgb Conc 31.6 g/dL (32-36); Mean Corpuscular Hgb 30.5 pg (27.0-32.0); Mean Corpuscular Volume 96.3 fL (80-94); Mean Platelet Vol. 9.6 fl (6.2-12.0); Monocyte# 0.94 X10^3/uL; Monocyte% 10.7 % (0-10); NRBC Flagged by Analyzer 0 % (0-5); Neutrophil # 6.06 X10^3/uL (2.7-7.7); Neutrophil % 69.2 % (47-70); Platelet Count 176 K/mm3 (150-450); RBC Distribution Width CV 12.6 % (11.6-14.6); RBC Distribution Width SD 44.8 fl (35.1-43.9); White Blood Count 8.8 K/mm3 (4.4-11.0)
[2021-06-25 14:00] LABS: D-Dimer Quantitative (DVT/PE) 0.46 FEU/ug/m (0.27-0.49)
[2021-06-25 14:02] LABS: Anion Gap 4 (5-15); BUN 15 mg/dL (7-18); BUN/Creat Ratio 27.6 RATIO (10-20); Calcium,Total 8.5 mg/dL (8.5-10.1); Chloride 104 mmol/L (98-107); Creatinine, Serum 0.54 mg/dL (0.70-1.30); EST Glomerular Filtration Rate 163 mL/min (>60); Est Glom Filt Rate - Afr Amer 198 mL/min (>60); Estimated Creatinine Clearance 145.47 ml/min; Glucose 102 mg/dL (74-106); Potassium 3.5 mmol/L (3.5-5.1); Sodium Level 142 mmol/L (136-145); Troponin-I HS 15 pg/mL (3.0-78.0)
[2021-06-25 14:06] LABS: BNP,B-Type NATRIURETIC PEPTIDE 22.9 pg/mL (0-100)
--- NOTE | 2021-06-25 14:13 | RAD_ITS ---
STUDY: X-RAY - UNILATERAL RIBS ( LEFT ) WITH CHEST REASON FOR EXAM: Male, 61 years old. rib pain TECHNIQUE - RIBS: 4 view(s) of the ribs. TECHNIQUE - CHEST: Single PA view of the chest. COMPARISON: 06/03/2020 FINDINGS - RIBS: Normal visualized ribs without a demonstrated fracture. FINDINGS - CHEST: The lungs are clear and expanded. There is no demonstrated pleural abnormality. Normal size heart. Normal mediastinum and joellen. Normal visualized pulmonary arteries. Normal visualized aortic arch and descending thoracic aorta. Normal visualized thoracic spine. Normal visualized ribs, clavicles, and shoulders. There is no demonstrated abnormality of the visualized soft tissue structures of the upper abdomen. RAD/Ribs Uni Min 3V w/PA Chest IMPRESSION: RIBS: Normal x-ray examination of the ribs. CHEST: Normal x-ray examination of the chest. Electronically Signed: Mumtaz Murillo MD at 14:50 EST Tel , Service support ,
--- NOTE | 2021-06-25 14:31 | EDS_ITS ---
HPI History of Present Illness Chief Complaint: Shortness of Breath Narrative Narrative: 61-year-old male with chronic shortness of breath on 4-4 and half liters of oxygen chronically for COPD presenting with shortness of breath. He also admits to left rib pain. He states this feels sharp in nature. He denies any trauma. He admits to his blood pressure being more elevated than usual and had spoken to his travel sales consultant who told him to come to the ER because he is having leg swelling in addition to his shortness of breath. Patient states he had a chest x-ray yesterday which showed an opacity in the left lung. Patient is status post having Covid in March. He also has a history of a lung nodule. Patient is not requiring more oxygen but does state that his pulse ox dipped to 90 yesterday. He does not feel as if he is wheezing. He states that although he wears 4 to 4.5 L at home he states when he goes to work he does not have to wear oxygen. Patient is not anticoagulated and not on blood thinners. He denies history of DVT/PE. [facility] Medical History Acute respiratory failure with hypoxia COPD (chronic obstructive pulmonary disease) COPD exacerbation Depression Hyperlipidemia Hypertension Lymphoma Home Medications amlodipine 10 mg PO DAILY 04/08/20 [History Last Taken 06/02/20] atorvastatin 20 mg PO QHS 04/08/20 [History Last Taken 06/02/20] calcium carbonate 1,200 mg PO DAILY 04/08/20 [History Last Taken 06/03/20] cholecalciferol (vitamin D3) 2,000 unit PO DAILY 04/08/20 [History Last Taken 06/03/20] losartan 100 mg PO DAILY 04/08/20 [History Last Taken 06/02/20] melatonin 40 mg PO QHS 04/08/20 [History Last Taken 06/02/20] metformin 1,000 mg PO BID 04/08/20 [History Last Taken 06/03/20] acetaminophen 1,000 mg PO Q4H PRN PRN 06/03/20 [History Last Taken 06/03/20] fluoxetine 40 mg PO DAILY 06/03/20 [History Last Taken 06/02/20] ibrutinib 420 mg PO DAILY 06/03/20 [History Last Taken 06/02/20] nicotine 14 mg/24 hr daily transdermal patch 1 patch TD DAILY #28 ea 02/23/21 [Rx Last Taken Unknown] ipratropium 0.5 mg-albuterol 3 mg (2.5 mg base)/3 mL nebulization soln 3 ml INHALATION Q4H PRN PRN #180 ml 03/02/21 [Rx Last Taken Unknown] budesonide 160 mcg-glycopyr 9 mcg-formot 4.8 mcg/actuation HFA inhaler 2 inh INHALATION BID #10.7 g 05/29/21 [Rx Last Taken Unknown] tramadol 50 mg PO Q4H PRN PRN 3 Days #14 tab 05/29/21 [Rx Last Taken Unknown] klrrkmxexn-zicadzqf-ysthgllqpt [Breztri Aerosphere] 2 inh INHALATION BID 06/25/21 [History Last Taken Unknown] doxycycline hyclate 100 mg PO BID 06/25/21 [History Last Taken Unknown] prednisone 1 mg PO DAILY 06/25/21 [History Last Taken Unknown] Allergy/AdvReac Type Severity Reaction Status Date / Time hydrochlorothiazide Allergy Unknown Verified 06/25/21 13:26 lisinopril AdvReac Mild cough Verified 06/25/21 13:26 Family History Other No pertinent family history Surgical History History of appendectomy No pertinent past surgical history Previous back surgery Social History Smoking Status: Current every day smoker tobacco type: cigarettes alcohol intake: former details: Not since being in the hospital substance use type: does not use ROS ROS ED Constitutional Constitutional ED: Denies chills or fever(s) Eyes Eyes: Denies blurry vision or change in vision ENT ENT ED: Denies rhinorrhea or sore throat Cardiovascular Cardiovascular: Reports chest pain Respiratory/Chest Respiratory/Chest: Reports dyspnea and dyspnea on exertion Gastrointestinal Gastrointestinal: Denies abdominal pain, nausea or vomiting Genitourinary Genitourinary ED: Denies dysuria or hematuria Musculoskeletal Musculoskeletal: Denies arthralgias or myalgias Integumentary Denies Abrasions or rash Neurologic Neurologic: Denies headache(s) or paresthesias EXAM Physical Exam Const Vital Signs: 06/25/21 12:46 06/25/21 13:29 06/25/21 13:46 Temperature 97.1 F L 97.1 F L Temperature Source Temporal Temporal Pulse Rate 96 88 Respiratory Rate 20 H 20 H Respiratory Effort Non-Labored Short of Breath Respiratory Depth Normal Respiratory Pattern Normal Blood Pressure 188/84 H 188/84 H Blood Pressure Mean 118 118 Pulse Ox 96 96 98 Oxygen Delivery Method Nasal Cannula Nasal Cannula Nasal Cannula Oxygen Flow Rate (L/min) 4 4.5 4.5 06/25/21 14:40 06/25/21 16:24 Temperature 97.1 F L Temperature Source Temporal Pulse Rate 85 73 Respiratory Rate 16 18 Respiratory Effort Respiratory Depth Respiratory Pattern Blood Pressure 158/81 H 141/83 H Blood Pressure Mean 106 Pulse Ox 96 95 Oxygen Delivery Method Nasal Cannula Oxygen Flow Rate (L/min) 4.5 Positive well nourished General Appearance ED: NAD; Negative for pallor HEENT Reports moist mucous membranes atraumatic Eyes PERRL and EOMs intact bilaterally Neck no lymphadenopathy and supple Chest Wall Chest Narrative: Tenderness to palpation over left lower ribs in the anterior axillary line. No crepitance or deformity. No rash or bruising. Equal symmetric chest wall rise and breath sounds Resp normal respiratory effort and clear to auscultation bilaterally Cardio regular rate and regular rhythm GI non-tender and non-distended Palpation: soft Neuro oriented x3 and CN's II-XII intact bilaterally Sensorium / Orientation: alert Psych mental status grossly normal Thought Process: normal thought process Skin no wounds General Skin Exam: Negative for jaundice or pallor Lesions: no lesions Rashes: no rashes MDM MDM MDM Narrative Medical decision making narrative: Patient presenting with shortness of breath, left-sided rib pain. He states his pulse ox dipped to about 90 last night. He admits to lower extremity edema and he has mild edema on examination. Patient is status post Covid in March and is not currently having any fevers, chills, cough. He is chronically on 4 to 4.5 L of oxygen daily only when he is at home and when he works he does not wear oxygen. CBC shows no leukocytosis. Hemoglobin hematocrit are stable. Platelet count is normal at 176. BMP is normal. D-dimer is negative at 0.46. BNP is 22.9. EKG on my interpretation shows a normal sinus rhythm with a ventricular rate of 89 bpm without sign of ischemic change. Right bundle branch block pattern is noted. I did obtain a left rib series due to the patient's left rib pain and on my interpretation there are no acute fractures or acute cardiopulmonary process. Radiologist does agree. Given the patient's ultimately negative work-up I feel he is safe for discharge home. He is to follow-up with his travel sales consultant and his primary care physician. He is given return precautions. Impression: 1. Left rib pain 2. Dyspnea Lab Data Labs: Laboratory Results - last 24 hr 06/25/21 06/25/21 06/25/21 13:38 13:38 13:38 WBC 8.8 RBC 4.30 L Hgb 13.1 Hct 41.4 MCV 96.3 H MCH 30.5 MCHC 31.6 L RDW Std Deviation 44.8 H RDW Coeff of Renee 12.6 Plt Count 176 MPV 9.6 Immature Gran % (Auto) 0.600 Neut % (Auto) 69.2 Lymph % (Auto) 19.0 [place] % (Auto) 10.7 H Eos % (Auto) 0.2 Baso % (Auto) 0.3 Absolute Neuts (auto) 6.1 Absolute Lymphs (auto) 1.67 Nucleated RBC % 0 D-Dimer Quant (PE/DVT) 0.46 Sodium 142 Potassium 3.5 Chloride 104 Carbon Dioxide 34.0 H Anion Gap 4 L BUN 15 Creatinine 0.54 L Estim Creat Clear Calc 145.47 Est GFR (MDRD) Af Amer 198 Est GFR (MDRD) Non-Af 163 BUN/Creatinine Ratio 27.6 H Glucose 102 Calcium 8.5 Troponin I High Sens 15 B-Natriuretic Peptide 06/25/21 13:38 WBC RBC Hgb Hct MCV MCH MCHC RDW Std Deviation RDW Coeff of Renee Plt Count MPV Immature Gran % (Auto) Neut % (Auto) Lymph % (Auto) [place] % (Auto) Eos % (Auto) Baso % (Auto) Absolute Neuts (auto) Absolute Lymphs (auto) Nucleated RBC % D-Dimer Quant (PE/DVT) Sodium Potassium Chloride Carbon Dioxide Anion Gap BUN Creatinine Estim Creat Clear Calc Est GFR (MDRD) Af Amer Est GFR (MDRD) Non-Af BUN/Creatinine Ratio Glucose Calcium Troponin I High Sens B-Natriuretic Peptide 22.9 Radiography Diagnostic Testing: Clinical Impression(s) from Imaging Studies Ribs w/Chest X-Ray 06/25/21 14:13 IMPRESSION: RIBS: Normal x-ray examination of the ribs. CHEST: Normal x-ray examination of the chest. Electronically Signed: Mumtaz Murillo MD at 14:50 EST Tel , Service support , Discharge Plan Triage Chief Complaint: Shortness of Breath ED Provider: Rogelio Hernandez Dx/Rx/DC Orders Instructions: ED Dyspnea Prescriptions: No Action Breztri Aerosphere 160-9-4.8 mcg/actuation HFA aerosol inhaler 2 inh inhalation BID Qty: 10.7 RF: 5 metformin 500 MG tablet 1,000 mg PO BID RF: 0 amlodipine 10 MG tablet 10 mg PO DAILY RF: 0 losartan 100 MG tablet 100 mg PO DAILY RF: 0 melatonin 5 MG tablet 40 mg PO QHS RF: 0 atorvastatin 20 MG tablet 20 mg PO QHS RF: 0 calcium carbonate 600 MG tablet 1,200 mg PO DAILY RF: 0 cholecalciferol (vitamin D3) 2,000 UNIT capsule 2,000 unit PO DAILY RF: 0 fluoxetine 40 MG capsule 40 mg PO DAILY RF: 0 acetaminophen 500 MG tablet 1,000 mg PO Q4H PRN PRN (Reason: Pain 1-10 Or Fever) RF: 0 ibrutinib 420 MG tablet 420 mg PO DAILY RF: 0 tramadol 50 MG tablet 50 mg PO Q4H PRN PRN (Reason: Pain) 3 Days Qty: 14 RF: 0 prednisone 10 mg tablet 1 mg PO DAILY RF: 0 doxycycline hyclate 100 mg tablet 100 mg PO BID RF: 0 Breztri Aerosphere 160-9-4.8 mcg/actuation HFA aerosol inhaler 2 inh INHALATION BID RF: 0 nicotine 14 mg/24 hr patch 24 hour 1 patch TD DAILY Qty: 28 RF: 0 ipratropium-albuterol 0.5 mg-3 mg(2.5 mg base)/3 mL solution for nebulization 3 ml inhalation Q4H PRN PRN (Reason: SOB &/OR WHEEZING) Qty: 180 RF: 6 Primary Care Provider: Hector Vega Referrals: Hector Vega MD [Primary Care Provider] - Disposition Disposition: Home, Self Care Discharge Date/Time: 06/25/21 16:24
[2021-06-25 14:40] VITALS: BP 158/81; PULSE 85; RESP 16; TEMP 36.2; O2SAT 96
[2021-06-25 16:24] VITALS: BP 141/83; PULSE 73; RESP 18; O2SAT 95
== END 2021-06-25 16:24 | disposition home or self-care (01) ==
PROVIDERS: Emergency Provider Student in an Organized Health Care Education/Training Program; PCP Family Medicine
DX: R06.00 Dyspnea, unspecified (principal); J44.9 Chronic obstructive pulmonary disease, unspecified; M79.89 Other specified soft tissue disorders; I10 Essential (primary) hypertension; E78.5 Hyperlipidemia, unspecified; F32.A Depression, unspecified; F17.210 Nicotine dependence, cigarettes, uncomplicated; Z79.899 Other long term (current) drug therapy; Z99.81 Dependence on supplemental oxygen; Z86.16 Personal history of COVID-19
CPT/HCPCS: 71101; 80048; 83880; 84484; 85025; 85379; 93005; 99284; A4216

== ENCOUNTER 2021-07-30 16:15 | Outpatient (CLI) | payer BC, SELFPAY | END 2021-07-30 23:59 | disposition short-term general hospital (02) | LOC: LABSPEC 16:16 | PROVIDERS: PCP Family Medicine; Visit Provider Nurse Practitioner Acute Care | DX: J44.1 Chronic obstructive pulmonary disease with (acute) exacerbation (principal) | CPT/HCPCS: 87070; 87077; 87205 ==